=== PATIENT | male | born 1945 | race Caucasian/White ===

== ENCOUNTER 2019-03-01 16:14 | Outpatient (REF) | payer MEDICARE, BC, SELFPAY ==
[2019-03-01 21:11] LABS: HCT 43.8 % (40.0-50.0); HGB 14.7 g/dL (13.5-17.5); Mean Corp. HGB Concentration 33.6 g/dL (32.0-36.0); Mean Corpuscular Volume 101.4 fL (80-95); Mean Platelet Volume 9.5 fL (8.0-11.0); Platelet Count 238 x1000/uL (130-400); RBC 4.32 m/cumm (4.50-6.00); RBC Distribution Width 12.4 % (11.8-14.1); White Blood Cell Count 5.06 k/cumm (4.4-10.8)
[2019-03-01 21:21] LABS: Anion Gap 17.3 mmol/L (3-11); BUN 18 mg/dL (7-18); CO2 19.7 mmol/L (21.0-32.0); CREATININE 1.03 mg/dL (0.70-1.30); Calcium 8.6 mg/dL (8.5-10.1); Chloride 105 mmol/L (98-107); Glucose 84 mg/dL (70-100); Potassium 4.3 mmol/L (3.5-5.1); Sodium 142 mmol/L (136-145)
[2019-03-03 11:42] LABS: Lyme Ab w Rflx to Lyme Confirm Negative (Negative)
[2019-03-04 16:14] LABS: Anaplasma phagocytophilum Negative (Negative); B. miyamotoi PCR Negative (Negative); Babesia divergens/MO-1 Negative (Negative); Babesia duncani Negative (Negative); Babesia microti Negative (Negative); Ehrlichia chaffeensis Negative (Negative); Ehrlichia ewingii/canis Negative (Negative); Ehrlichia muris eauclairensis Negative (Negative)
== END 2019-03-01 16:34 ==
LOC: NCHCN 16:14
PROVIDERS: PCP Internal Medicine; Visit Provider Internal Medicine
DX: I10 Essential (primary) hypertension (principal); R21 Rash and other nonspecific skin eruption
CPT/HCPCS: 80048; 85027; 87798; 86618

== ENCOUNTER 2019-03-09 12:06 | Outpatient (CLI) | payer MEDICARE, BC, SELFPAY ==
[2019-03-09 12:44] LABS: Abs Immature Grans 0.02 k/cumm (0.0-0.09); Absolute Basophil Count 0.04 k/cumm (0.0-0.2); Absolute Eosinophil Count 0.05 k/cumm (0.0-0.7); Absolute Lymphocyte Count 2.08 k/cumm (1.2-3.4); Absolute Neutrophil Count 5.14 k/cumm (1.2-6.7); Basophils % 0.5; Eosinophils % 0.6; HCT 45.5 % (40.0-50.0); HGB 15.5 g/dL (13.5-17.5); Immature Grans % 0.2; Lymphocytes % 25.9; Mean Corp. HGB Concentration 34.1 g/dL (32.0-36.0); Mean Corpuscular Hemoglobin 33.8 pg (27.0-33.0); Mean Corpuscular Volume 99.3 fL (80-95); Mean Platelet Volume 9.7 fL (8.0-11.0); Monocytes % 8.7; Neutrophils % 64.1; Platelet Count 208 x1000/uL (130-400); RBC 4.58 m/cumm (4.50-6.00); White Blood Cell Count 8.03 k/cumm (4.4-10.8)
[2019-03-09 14:04] LABS: AST 57 U/L (15-37); Albumin 3.5 g/dL (3.4-5.0); Anion Gap 16.8 mmol/L (3-11); BUN 17 mg/dL (7-18); Bilirubin, Total 0.8 mg/dL (0.2-1.0); CO2 22.2 mmol/L (21.0-32.0); CREATININE 1.03 mg/dL (0.70-1.30); Calcium 8.7 mg/dL (8.5-10.1); Chloride 101 mmol/L (98-107); Glucose 81 mg/dL (74-106); Magnesium 0.9 mg/dL (1.8-2.4); Potassium 4.5 mmol/L (3.5-5.1); Sodium 140 mmol/L (136-145); TSH (W/Ref FT4) 2.32 uIU/mL (0.36-3.74); Total Protein 7.2 g/dL (6.4-8.2); Vitamin B12 323 pg/mL (193-986)
[2019-03-09 14:36] LABS: ALT 56 U/L (16-63); Alkaline Phosphatase 70 U/L (46-116)
[2019-03-09 15:50] LABS: Folate 4.6 ng/mL (8.6-20.0)
[2019-03-10 10:29] LABS: Lipase 106 U/L (73-393)
[2019-03-13 10:22] LABS: Thiamine (Vitamin B1), WB 131 nmol/L (70-180)
== END 2019-03-09 12:26 ==
PROVIDERS: PCP Internal Medicine; Visit Provider Specialist/Technologist Athletic Trainer
DX: R11.0 Nausea (principal); F10.10 Alcohol abuse, uncomplicated; R42 Dizziness and giddiness
CPT/HCPCS: 36415; 80053; 83690; 82607; 82746; 83735; 84425; 84443; 85025

== ENCOUNTER 2019-04-20 15:33 | Outpatient (REF) | payer MEDICARE, BC, SELFPAY ==
[2019-04-20 21:44] LABS: Magnesium 1.7 mg/dL (1.8-2.4)
[2019-04-22 16:30] LABS: Folate >24.0 ng/mL (See Note)
== END 2019-04-20 15:53 ==
LOC: NCHCN 15:33
PROVIDERS: PCP Internal Medicine; Visit Provider Internal Medicine
DX: E83.42 Hypomagnesemia (principal); D52.9 Folate deficiency anemia, unspecified
CPT/HCPCS: 82746; 83735

== ENCOUNTER 2019-06-14 01:39 | Outpatient (CLI) | payer MEDICARE, BC, SELFPAY ==
--- NOTE | 2019-06-14 | DI.RAD_ITS ---
EXAM: XR KNEE LT 3V AP,LAT,MURIEL INDICATION: LT KNEE PAIN, M25.562, [id number]. COMPARISON: No exams were available for comparison TECHNIQUE: 2D digital imaging was performed. FINDINGS: There is moderate narrowing of the medial femoral tibial joint. There is mild spurring from the femo ral condyles, tibial plateaus as well tibial spines and patella. No joint effusion is visible. IMPRESSION: Moderate degenerative changes medial femoral tibial joint. DATA REPOSITORY: RADIATION DOSE DELIVERED:
== END 2019-06-14 01:59 ==
PROVIDERS: PCP Internal Medicine; Visit Provider Internal Medicine
DX: M25.562 Pain in left knee (principal); M17.12 Unilateral primary osteoarthritis, left knee
CPT/HCPCS: 73562

== ENCOUNTER 2019-07-27 15:57 | Inpatient (IN) | payer MEDICARE, BC, SELFPAY ==
[2019-07-27] VITALS (132 sets, daily range): BP systolic 63–197; BP diastolic 43–132; PULSE 48–116; RESP 13–50; TEMP 36.4–36.5; O2SAT 86–100
--- NOTE | 2019-07-27 16:15 | DI.CT_ITS ---
EXAM: CT HEAD - STROKE PROTOCOL CLINICAL HISTORY: concern for bleed, seizure. TECHNIQUE: Imaging Protocol: Axial computed tomography images with coronal and sagittal reformatted images were created and reviewed COMPARISON: No previous for comparison. FINDINGS: Ventricles and Extra axial spaces: There is age-appropriate cerebral atrophy. Hemorrhage: None. Cerebral parenchyma: There are areas of decreased attenuation in the white matter most consistent wit h small vessel ischemic disease. No acute territorial infarct is seen. Midline shift: None. Brainstem/Cerebellum: Normal. Calvarium: Normal. Visualized Paranasal sinuses/Mastoids: There is opacification of a few ethmoid air cells. The remain ing visualized paranasal sinuses and mastoid air cells are well pneumatized. Note is made of a nasog astric tube. Soft Tissues: Unremarkable. IMPRESSION: No acute intracranial process. RADIATION DOSE DELIVERED: DATA REPOSITORY: All CT scans at this facility are submitted to the National Radiology Data Registry (NRDR) Dose Index Registry (DIR) with the [employer] (A[employer]). RADIATION OPTIMIZATION: All CT scans at this facility use at least one of these dose optimization te chniques: automated exposure control; mA and/or kV adjustment per patient size (includes targeted exa ms where dose is matched to clinical indication); or iterative reconstruction.
[2019-07-27] MEDS: LORazepam 2 MG/ML VIAL (16:18)
[2019-07-27] MEDS: Etomidate 20 MG/10 ML VIAL IVP (16:28)
[2019-07-27] MEDS: Rocuronium 50 MG/5 ML SYR 100 MG IVP (16:29)
--- NOTE | 2019-07-27 16:30 | DI.RAD_ITS ---
EXAM: XR PORTABLE CHEST AP POST LINE CLINICAL HISTORY: intubation TECHNIQUE: 2D digital imaging was performed. COMPARISON: No exams were available for comparison FINDINGS: MEDIASTINUM: Normal. HEART: Normal. PULMONARY VASCULATURE: Normal. LUNGS: There is a consolidation with air bronchograms in the left lower lobe. PLEURAL SPACE: No pleural effusion or pneumothorax. BONE:Normal. OTHER FINDINGS:The tip of the endotracheal tube is seen in the right mainstem bronchus and should be retracted at least 3-4 cm. There is a nasogastric tube present. The tip of the tube extends below t he diaphragms and inferior border of the study. This likely is within the stomach. IMPRESSION: 1. Right mainstem bronchus intubation. The endotracheal tube should be retracted at least 3-4 cm. 2. Nasogastric tube which appears to lie in a good position within the stomach. 3. Left lower lobe consolidation with air bronchograms which may reflect atelectasis or pneumonia. DATA REPOSITORY: RADIATION DOSE DELIVERED:
[2019-07-27] MEDS: PROPOFOL 1,000 MG/100 ML BTL 30.3 MG IVPB (16:33)
--- NOTE | 2019-07-27 16:45 | DI.CT_ITS ---
EXAM: CTA BRAIN and NECK CLINICAL HISTORY: right hand tingling, seizure. TECHNIQUE: Imaging Protocol: Axial CT angiography was performed with multi-slice acquisition and mu lti-planar and/or 3D reconstructions. CONTRAST MATERIAL: Intravenous: Omnipaque 350 Contrast volume:100 mL COMPARISON: No exams were available for comparison FINDINGS: CTA Brain W: Internal Carotid Arteries: Petrous: Normal. No aneurysm, occlusion or significant stenosis. Cavernous: Calcific atherosclerosis. No aneurysm, occlusion or significant stenosis. Cerebral: Normal. No aneurysm, occlusion or significant stenosis. Middle Cerebral Arteries: Right: No aneurysm, occlusion or significant stenosis. Left: No aneurysm, occlusion or significant stenosis. Anterior Cerebral Arteries: Right: No aneurysm, occlusion or significant stenosis. Left: No aneurysm, occlusion or significant stenosis. Posterial Cerebral Arteries: Right: No aneurysm, occlusion or significant stenosis. The right posterior cerebral artery arises fr om the posterior communicating artery. This is a normal variant. Left: No aneurysm, occlusion or significant stenosis. Vertebral Arteries: Right: No aneurysm, occlusion or significant stenosis. The right vertebral artery appears to termina te at the level of the right posterior inferior cerebellar artery. The right vertebral artery is dec reased in size compared to the left vertebral artery.. Left: No aneurysm, occlusion or significant stenosis. Basilar Artery: No aneurysm, occlusion or significant stenosis. CTA neck W: Common carotid arteries: No significant stenosis, dissection or occlusion. External carotid arteries: No evidence of occlusion or significant stenosis. Internal carotid arteries: There is atherosclerotic plaque seen in the proximal extracranial internal carotid arteries bilaterally. No evidence of occlusion, dissection or significant stenosis. Vertebral arteries: Right vertebral artery is decreased in size relative to the left throughout. No evidence of occlusion or significant stenosis. There is a dominant left vertebral artery. No eviden ce of occlusion or significant stenosis. The proximal left vertebral artery is not well visualized d ue to beam hardening artifact. Lung apices: The endotracheal tube is seen in the right mainstem bronchus and should be repositioned. Visualized left lung shows complete consolidation which is likely due to the right mainstem bronchu s intubation. Nonspecific ground-glass opacities are seen in the right lung. Soft tissues: Unremarkable. IMPRESSION: 1. No evidence of occlusion, dissection or significant stenosis the arteries of the head or neck. 2. Complete consolidation of the visualized portions of the left lung. This is likely secondary to a malpositioned right mainstem bronchus intubation. The endotracheal tube should be repositioned. Fi ndings were discussed with the emergency department physician at the time of the examination by [facility]. 3. Ground-glass opacities in the right lung. These are nonspecific. DATA REPOSITORY: All CT scans at this facility are submitted to the National Radiology Data Registry (NRDR) Dose Index Registry (DIR) with the [employer] (ACR). RADIATION OPTIMIZATION: All CT scans at this facility use at least one of these dose optimization te chniques: automated exposure control; mA and/or kV adjustment per patient size (includes targeted exa ms where dose is matched to clinical indication); or iterative reconstruction.
--- NOTE | 2019-07-27 16:49 | ED.GENADUL_ITS ---
Discharge Plan Disposition Patient Disposition: [facility] INPATIENT Condition: Serious Discharge Details Chief Complaint: AMS/LOC Clinical Impression: Seizure Primary Care Provider: Jack Reese ED Provider: Denis Meehan Home Meds and New Rx's Prescriptions: No Action omeprazole 40 MG capsule,delayed release(DR/EC) 40 mg PO DAILY@0730 Qty: 30 RF: 5 ranitidine HCl 300 MG tablet 300 mg PO HS Qty: 30 RF: 2 losartan 25 mg tablet 25 mg PO DAILY RF: 0 hydrochlorothiazide 12.5 mg tablet 12.5 mg PO DAILY RF: 0 Medical Decision Making 16:50 --73-year-old male with history of hypertension, hyperlipidemia, apparent history of dysphasia, history of alcohol abuse, here today with tingling in his right hand, had sudden loss of consciousness with seizure activity. I was called emergently to bedside by nursing and on my assessment I found patient to be unresponsive and not protecting his airway. IV access was obtained and Ativan 2 mg IV was administered. Patient remained unresponsive with GCS of 3. He had leftward gaze. Concern for acute intracranial hemorrhage. Patient intubated with RSI etomidate and rocuronium on first attempt with video laryngoscopy. Patient had no desaturations. Patient was started on propofol infusion. Plan for stat CT head to assess for intracranial hemorrhage. --CT of the head was interpreted by radiology: IMPRESSION: 1. No acute intracranial pathology. ASPECTS score 10. 2. Other chronic findings, as above. CTA of the head interpreted by radiology: IMPRESSION: No intracranial arterial occlusion or significant stenosis. CTA of the neck interpreted by radiology: IMPRESSION: 1. No occlusion or significant stenosis in the arteries of the neck. 2. Essentially complete consolidation of the left lung, likely secondary to malpositioned right mainstem bronchus intubation. Findings regarding the position of this endotracheal tube were discussed with Dr. Meehan at 07/27/2019 5:43 PM EDT. 3. Few scattered nonspecific patchy ground-glass opacities throughout the partially visualized right lung. Recommend correlation with dedicated complete chest CT, following repositioning of endotracheal tube. Chest x-ray interpreted by radiology: IMPRESSION: 1. Endotracheal tube tip extends into the right mainstem bronchus. Recommend retraction by 4 cm. 2. Enteric tube in place, tip terminating below the inferior border of the study, likely within within the stomach. 3. Left lower lobe consolidation with air bronchograms. Findings may reflect atelectasis or pneumonia. Endotracheal tube was pulled back by respiratory therapy. Labs reviewed and nondiagnostic. Patient does have significantly elevated ammonia level. ECG was reviewed and interpreted by me: Sinus rhythm 92 bpm, normal axis, left atrial enlargement, flattening of ST with subtle T wave inversions noted laterally V4 to V6. I spoke with the patient's daughter who notes no known seizure disorder. There is history obtained from girlfriend the patient is a heavy drinker. He has been cutting back over the past few weeks and then yesterday had a binge. Suspect seizure related to alcohol withdrawal. Patient reassessed multiple times. Patient is doing well on propofol and fentanyl drip. --On reassessment, patient was requiring increased sedation. Decision made to switch from propofol to Versed given concern for alcohol dependence. Patient was given Keppra 1 g IV. Repeat portable chest x-ray notes endotracheal tube is 1.6 cm above temi. Endotracheal tube was withdrawn 1 cm by RT. I called and spoke with Dr. Milian who will admit the patient. I did speak with the patient's about his current status and treatment plan. Given unknown history on initial presentation precautions airborne PPE precautions were taken during intubation. Having gathered additional history, I do not think the patient is a PUI. No fever recently or history of cough. No known sick contacts or recent travel. Patient afebrile now. HPI General Mode of arrival: ambulatory . Date/Time Provider Initiated Documentation: 07/27/19 16:14 . Limitations to Documentation: altered mental status . Information obtained by: patient . HPI Narrative: 73-year-old male with history listed of dyslipidemia, hypertension, apparently a heavy drinker, GERD, hypercholesterolemia, migraine headache, also listed as dysphasia, presents today complaining to nursing of tingling in his right hand and speech disturbance. While nursing was rooming the patient he suddenly had a loss of consciousness with generalized tonic-clonic seizure activity. Patient does have a known history of seizure disorder. History and review of systems limited secondary to altered mental status. Related Data Home Medications Medication Instructions Recorded Confirmed omeprazole 40 mg PO DAILY@0730 #30 capcr 05/19/17 07/27/19 ranitidine HCl 300 mg PO HS #30 tab 05/19/17 hydrochlorothiazide 12.5 mg PO DAILY 07/27/19 07/27/19 losartan 25 mg PO DAILY 07/27/19 Previous Rx's Medication Instructions Recorded omeprazole 40 mg PO DAILY@0730 #30 capcr 05/19/17 ranitidine HCl 300 mg PO HS #30 tab 05/19/17 Allergies Allergy/AdvReac Type Severity Reaction Status Date / Time No Known Allergies Allergy Unverified 07/27/19 19:06 General Stated Complaint: AMS/LOC TIMMY: 2 Review of Systems Narrative: unable to obtain [facility] Medical History Dyslipidemia Dysphagia Heart burn Hx of adenomatous polyp of colon Hypertension Obesity (BMI 30.0-34.9) Surgical History Colonoscopy - [facility] 2010- EGD - [facility] (05/19/17) Social History Smoking/Tobacco Use Status: Current-Occasional Drug use: Never Exam Const Nutritional Appearance: well nourished Orientation: other (Unresponsive) [facility] Head: normocephalic and atraumatic Mouth: moist mucous membranes Eyes Conjunctivae: normal conjunctivae Neck Neck: trachea midline and supple Resp Auscultation: clear to auscultation bilaterally, no rales, no rhonchi and no wheezes Cardio Jugular venous pressure: no JVD Rate: regular rate Rhythm: regular rhythm GI Palpation: soft, not firm, no guarding, no masses, not rigid and nontender Skin General skin exam: no rashes or lesions noted Neuro Other: GCS 3 Extrem General: no edema Psych Appearance: well kempt Procedures Intubation Time out performed: Yes sedative: Etomidate Mg Given: 20 paralytic: Rocuronium Mg Given: 100 Laryngoscope: fiberoptic video scope ET Tube Size: 7.5 Tube Secured Depth (cm): 28 Tube Secured Location: lips Tube Placement Confirmation: visualized tube passing through cords Patient Tolerated Procedure: well and no complications Intubation Complications: none Critical Care Time Critical Care Time Critical Care Time: Yes Total Critical Care Time: 50 Attestation: I spent greater than 50 minutes addressing this patient's immediate life threats. This time is exclusive of separate procedures.
[2019-07-27 16:51] LABS: ALT 26 U/L (16-63); AST 23 U/L (15-37); Albumin 4.2 g/dL (3.4-5.0); Alkaline Phosphatase 97 U/L (46-116); Anion Gap 21.2 mmol/L (3-11); BUN 23 mg/dL (7-18); CO2 19.8 mmol/L (21.0-32.0); CREATININE 1.23 mg/dL (0.70-1.30); Calcium 9.3 mg/dL (8.5-10.1); Chloride 104 mmol/L (98-107); Estimated GFR 58.01 (mL/min/1.73m2); Glucose 123 mg/dL (74-106); HCT 51.7 % (40.0-50.0); HGB 16.7 g/dL (13.5-17.5); Mean Corp. HGB Concentration 32.3 g/dL (32.0-36.0); Mean Corpuscular Hemoglobin 30.9 pg (27.0-33.0); Mean Corpuscular Volume 95.6 fL (80-95); Mean Platelet Volume 10.1 fL (8.0-11.0); Platelet Count 281 x1000/uL (130-400); Potassium 3.4 mmol/L (3.5-5.1); RBC 5.41 m/cumm (4.50-6.00); RBC Distribution Width 14.7 % (11.8-14.1); Sodium 145 mmol/L (136-145); Total Protein 8.4 g/dL (6.4-8.2); White Blood Cell Count 14.49 k/cumm (4.4-10.8)
[2019-07-27 16:52] LABS: INR 1.1 (0.9-1.1); PTT Activated 23.1 sec (21.0-31.4)
[2019-07-27 16:54] LABS: Ammonia 119 umol/L (11-32)
[2019-07-27 17:18] LABS: ETHANOL BLOOD < 3.0 mg/dL (<3); Magnesium 1.6 mg/dL (1.8-2.4); Troponin I 0.05 ng/Ml (<0.06)
[2019-07-27 17:28] LABS: Absolute Neutrophil Count 6.67 k/cumm (1.2-6.7)
--- NOTE | 2019-07-27 17:28 | DI.VRAD_ITS ---
PROCEDURE INFORMATION: Exam: CT Head Without Contrast Exam date and time: 07/27/2019 4:55 PM Age: 73 years old Clinical indication: Other: Concern for bleed, seizure TECHNIQUE: Imaging protocol: Computed tomography of the head without contrast. Radiation optimization: All CT scans at this facility use at least one of these dose optimization techniques: automated exposure control; mA and/or kV adjustment per patient size (includes targeted exams where dose is matched to clinical indication); or iterative reconstruction. Other technique: STROKE PROTOCOL was implemented. COMPARISON: No relevant prior studies available. FINDINGS: Brain: Mild nonspecific hypodensities of the periventricular and deep subcortical white matter, most likely secondary to chronic small vessel ischemic change. No intracranial hemorrhage or extra-axial fluid collection. No evidence of mass effect or midline shift. Ruiz-white matter differentiation is normal. Ventricles: Mild prominence of the ventricles and sulci, most likely attributed to parenchymal volume loss. Bones/joints: No acute osseus lesion or fracture. Sinuses: Unremarkable as visualized. Mastoid air cells: Unremarkable. Soft tissues: Unremarkable. IMPRESSION: 1. No acute intracranial pathology. ASPECTS score 10. 2. Other chronic findings, as above. Dictated and Authenticated by: Roni Rivera MD. Ordering:RACHID Zapata MD
[2019-07-27 17:29] LABS: Absolute Basophil Count 0.14 k/cumm (0.0-0.2); Absolute Eosinophil Count 0.14 k/cumm (0.0-0.7); Absolute Lymphocyte Count 6.81 k/cumm (1.2-3.4); Absolute Monocyte Count 1.01 k/cumm (0.11-0.7); Atypical Lymphocytes % 14; Diff Comment Manual Differential; Macrocytosis 1+; Nucleated RBC 1 /100WBC
[2019-07-27 17:34] LABS: *AMPHETAMINES SCREEN URINE Negative (Negative); *BARBITURATES SCREEN URINE Negative (Negative); *BENZODIAZEPINES SCREEN URINE Negative (Negative); Cannabinoids THC Negative (Negative); Cocaine Screen,Urine Negative (Negative); METHADONE URINE SCREEN Negative (Negative); OPIATES URINE SCREEN Negative (Negative)
[2019-07-27 17:41] LABS: Bilirubin Negative (Negative); Blood Trace-intact (Negative); Clarity Clear (Clear); Glucose Negative (Negative); Ketones 15 mg/dL (Negative); Leukocyte Esterase Negative (Negative); Nitrite Negative (Negative); Specific Gravity >= 1.030 (1.005-1.025); Urobilinogen 0.2 EU/dL (Up TO 0.2); pH 5.5 (5-8)
--- NOTE | 2019-07-27 17:43 | DI.VRAD_ITS ---
Addendum created by Roni Rivera MD on 07/27/2019 5:43:44 PM EDT Findings were discussed with Dr. Meehan at 07/27/2019 5:43 PM EDT. Initial report created on 07/27/2019 5:42:55 PM EDT PROCEDURE INFORMATION: Exam: XR Chest, 1 View Exam date and time: 07/27/2019 5:29 PM Age: 73 years old Clinical indication: Other: Intubation TECHNIQUE: Imaging protocol: XR of the chest Views: 1 view. COMPARISON: No relevant prior studies available. FINDINGS: Tubes, catheters and devices: Endotracheal tube tip extends into the right mainstem bronchus. Enteric tube in place, tip terminating below the inferior border of the study, likely within within the stomach. Lungs: Left lower lobe consolidation with air bronchograms. Pleural space: No pleural effusion or pneumothorax. Heart/Mediastinum: Cardiac and mediastinal silhouettes are unremarkable. Bones/joints: No acute osseus lesion or fracture. IMPRESSION: 1. Endotracheal tube tip extends into the right mainstem bronchus. Recommend retraction by 4 cm. 2. Enteric tube in place, tip terminating below the inferior border of the study, likely within within the stomach. 3. Left lower lobe consolidation with air bronchograms. Findings may reflect atelectasis or pneumonia. Dictated and Authenticated by: Roni Rivera MD. Ordering:RACHID Zapata MD
[2019-07-27 17:45] LABS: Tricyclic Antidepressants Negative (Negative)
[2019-07-27] MEDS: Omnipaque 350 MG/ML 100 ML BTL IV (17:49)
--- NOTE | 2019-07-27 17:49 | DI.VRAD_ITS ---
PROCEDURE INFORMATION: Exam: CT Angiography Head With Contrast Exam date and time: 07/27/2019 5:02 PM Age: 73 years old Clinical indication: Other: Right hand tingling, seizure; Additional info: Concern for bleed, seizure, right hand tingling, seizure TECHNIQUE: Imaging protocol: Computed tomography angiography of the head with intravenous contrast. 3D rendering: MIP and/or 3D reconstructed images were created by the technologist. Contrast material: OMNIPAQUE 350; Contrast volume: 100 ml; Contrast route: IV; COMPARISON: CT HEAD - STROKE PROTOCOL 07/27/2019 4:48 PM FINDINGS: Right internal carotid artery: Calcific atherosclerotic changes of the intracranial right internal carotid artery without evidence of hemodynamically significant stenosis. Right anterior cerebral artery: No occlusion or significant stenosis. No aneurysm. Right middle cerebral artery: No occlusion or significant stenosis. No aneurysm. Right posterior cerebral artery: Patent and type right posterior cerebral artery. Right vertebral artery: Patent intracranial right vertebral artery terminates into a patent right posterior inferior cerebellar artery. Left internal carotid artery: Calcific atherosclerotic changes of the intracranial left internal carotid artery without evidence of hemodynamically significant stenosis. Left anterior cerebral artery: No occlusion or significant stenosis. No aneurysm. Left middle cerebral artery: No occlusion or significant stenosis. No aneurysm. Left posterior cerebral artery: No occlusion or significant stenosis. No aneurysm. Left vertebral artery: No occlusion or significant stenosis. No aneurysm. Basilar artery: No occlusion or significant stenosis. No aneurysm. IMPRESSION: No intracranial arterial occlusion or significant stenosis. PROCEDURE INFORMATION: Exam: CT Angiography Neck With Contrast Exam date and time: 07/27/2019 5:02 PM Age: 73 years old Clinical indication: Other: Right hand tingling, seizure; Additional info: Concern for bleed, seizure, right hand tingling, seizure TECHNIQUE: Imaging protocol: Computed tomography angiography of the neck with intravenous contrast. 3D rendering: MIP and/or 3D reconstructed images were created by the technologist. Contrast material: OMNIPAQUE 350; Contrast volume: 100 ml; Contrast route: IV; COMPARISON: CT HEAD - STROKE PROTOCOL 07/27/2019 4:48 PM FINDINGS: VASCULATURE: Right common carotid artery: No significant stenosis. No dissection or occlusion. Right internal carotid artery: Atherosclerotic plaques involving the proximal extracranial right internal carotid artery without evidence of hemodynamically significant stenosis (0% stenosis by NASCET criteria). Right external carotid artery: No occlusion or significant stenosis. Right vertebral artery: Small caliber though otherwise patent right vertebral artery. Left common carotid artery: No significant stenosis. No dissection or occlusion. Left internal carotid artery: Atherosclerotic plaques involving the proximal extracranial left internal carotid artery without evidence of hemodynamically significant stenosis (0% stenosis by NASCET criteria). Left external carotid artery: No occlusion or significant stenosis. Left vertebral artery: Patent and dominant left vertebral artery. Limited evaluation of the inferior most aspect of the extracranial left vertebral artery secondary to beam hardening artifact from contrast within adjacent venous structures. NECK: Bones/joints: No acute fracture. Soft tissues: Unremarkable. Lungs: Essentially complete consolidation of the left lung, likely secondary to right mainstem bronchus endotracheal tube extension. Few scattered nonspecific patchy ground-glass opacities throughout the partially visualized right lung. IMPRESSION: 1. No occlusion or significant stenosis in the arteries of the neck. 2. Essentially complete consolidation of the left lung, likely secondary to malpositioned right mainstem bronchus intubation. Findings regarding the position of this endotracheal tube were discussed with Dr. Meehan at 07/27/2019 5:43 PM EDT. 3. Few scattered nonspecific patchy ground-glass opacities throughout the partially visualized right lung. Recommend correlation with dedicated complete chest CT, following repositioning of endotracheal tube. REFERENCES: NASCET CRITERIA. The degree of internal carotid artery stenosis is based on NASCET criteria. Normal is no stenosis. Mild is less than 50% stenosis. Moderate is 50-69% stenosis. Severe is 70% to 99% stenosis. Total occlusion is no detectable patent lumen. Dictated and Authenticated by: Roni Rivera MD. Ordering:ARNALDO Barrios MD
[2019-07-27 17:50] LABS: Bacteria Negative HPF (Negative); C & S Indicated? No; Casts Negative LPF (Negative); Crystals Many Amorphous HPF (Negative); Epithelial Cells Moderate HPF (Negative); Mucus Negative (Negative); RBC 0-2 HPF (0-2)
[2019-07-27] MEDS: Normal Saline - Diluent 50 ML VIAL IV (17:50)
[2019-07-27] MEDS: Normal Saline Flush 10 ML SYR IVP ×2 (18:12→21:14)
[2019-07-27] MEDS: fentaNYL 1,000 MCG in Normal Saline 80 ML 7.1 MCG IV (18:15)
[2019-07-27] MEDS: fentaNYL 1,000 MCG/20 ML VIAL 1000 MCG (18:15)
[2019-07-27] MEDS: Midazolam 2 MG/2 ML VIAL 6 MG IVP (18:30)
--- NOTE | 2019-07-27 18:55 | DI.RAD_ITS ---
EXAM: XR PORTABLE CHEST AP POST LINE CLINICAL HISTORY: post tube withdrawal TECHNIQUE: 2D digital imaging was performed. COMPARISON: XR PORTABLE CHEST AP POST LINE from 07/27/2019 FINDINGS: MEDIASTINUM: Normal. HEART: Normal. PULMONARY VASCULATURE: Normal. LUNGS: Improved aeration of the left lung with repositioning of the endotracheal tube. However, ther e is a persistent area of consolidation inferiorly. PLEURAL SPACE: No pleural effusion or pneumothorax. BONE:Normal. OTHER FINDINGS:The endotracheal tube has been retracted. The tip now lies 1.6 cm above the temi. I t should be retracted approximately 2 cm. Nasogastric tube terminates below the hemidiaphragms likel y within the stomach. IMPRESSION: 1. Interval retraction of the endotracheal tube. The tip now lies 1.6 cm above the temi. It shoul d be retracted approximately 2 cm. 2. Improved aeration of the left lung with a persistent area of consolidation inferiorly. DATA REPOSITORY: RADIATION DOSE DELIVERED:
[2019-07-27] MEDS: MIDAZOLAM 50 MG in Normal Saline 90 ML 10.1 MG IV (18:57)
--- NOTE | 2019-07-27 19:09 | DI.VRAD_ITS ---
PROCEDURE INFORMATION: Exam: XR Chest, 1 View Exam date and time: 07/27/2019 6:56 PM Age: 73 years old Clinical indication: Other: Post tube withdrawal TECHNIQUE: Imaging protocol: XR of the chest Views: 1 view. COMPARISON: XR PORTABLE CHEST AP 07/27/2019 5:25 PM FINDINGS: Tubes, catheters and devices: Endotracheal tube tip terminates 1.6 cm above the temi. Enteric tube in unchanged position. Lungs: Markedly improved aeration of the left lung, particularly in the left lower lobe, though with some persistent consolidation. Pleural space: No pleural effusion or pneumothorax. Heart/Mediastinum: Cardiac and mediastinal silhouettes are unremarkable. Bones/joints: No acute osseus lesion or fracture. IMPRESSION: 1. Endotracheal tube tip terminates 1.6 cm above the temi. Recommend retraction by approximately 2 cm. 2. Markedly improved aeration of the left lung, particularly in the left lower lobe, though with some persistent consolidation. Dictated and Authenticated by: Roni Rivera MD. Ordering:ARNALDO Barrios MD
[2019-07-27] MEDS: levETIRAcetam 1,000 MG in Normal Saline 100 ML 400 MG IVPB (19:33)
[2019-07-27 19:50] LABS: Anion Gap 7.1 mmol/L (3-11); BUN 20 mg/dL (7-18); CO2 28.9 mmol/L (21.0-32.0); CREATININE 0.93 mg/dL (0.70-1.30); Chloride 104 mmol/L (98-107); Glucose 125 mg/dL (74-106); Potassium 3.2 mmol/L (3.5-5.1); Sodium 140 mmol/L (136-145)
[2019-07-27 20:03] LABS: Troponin I 0.06 ng/Ml (<0.06)
--- NOTE | 2019-07-27 20:56 | NUR.NOTE ---
Nursing Note: 1615: Dr. Meehan with patient, 1617: 18 G IV to left AC by ER nurse 1620: 18 G IV to left hand by Dodie, RN 1628 : See Mar for Meds. 1632: Pt intubated by Dr Meehan 1637: 16nF Jimenez catheter inserted. Return of dark yellow urine 1645: NG tube inserted into right nare 1650: To CT with RN and RT x2 1740: Return from CT. Pt taken to room 6
[2019-07-27 21:05] LABS: BE 3.3 mmol/L (-3-3); HCO3 29 mmol/L (22-28); pCO2 50 mmHg (34-47); pH 7.37 (7.35-7.45); pO2 126 mmHg (83-108); sO2 98 % (94-98); tCO2 26 mmol/L (22-29)
[2019-07-27 21:08] LABS: FIO2 60 %; Site Right Radial
[2019-07-27] MEDS: MAGNESIUM SULFATE 2 GM/50 ML BAG IVPB (21:13)
[2019-07-27] MEDS: POTASSIUM CHLORIDE/D5-0.45NACL 1,000 ML 150 MEQ IV (21:14)
--- NOTE | 2019-07-27 21:25 | W.PM.HP.N ---
Date of service: 07/27/19 Time of Service: 21:25 Assessment and Plan Assessment and plan (1) Alcohol withdrawal seizure with complication: Status: Acute Assessment and plan: No prior hx of seizures despite hx of heavy alcohol use. Will check EEG in the a.m., covering w/ Keppra for tonight along w/ midazolam drip. Will have nursing titrate down his sedation and hopefully blood pressures will improve enough to wean down or off his norepinephrine drip. (2) Acute respiratory failure: Status: Acute Assessment and plan: Initially he was intubated by ER d/t his seizure and failure to protect his airway. There was no visible aspiration while in the ER, however given that his intubation was in the right main stem bronchus and his CXR demonstrated LLL consolidation and w/ his leukocytosis, I am going to cover him tonight w/ Zosyn pending repeat CXR in the a.m. and repeat his CBC and check his procalcitonin level. Qualifiers: Respiratory failure complication: unspecified whether with hypoxia or hypercapnia Qualified Code(s): J96.00 - Acute respiratory failure, unspecified whether with hypoxia or hypercapnia (3) Hypotension: Status: Acute Assessment and plan: probably combination of hypovolemia and medication induced and positive pressure ventilation. Patient was given iv fluid bolus but required norepinephrine drip to stabilize his blood pressure. Qualifiers: Hypotension type: unspecified hypotension type Qualified Code(s): I95.9 - Hypotension, unspecified (4) Aspiration pneumonia: Status: Suspected Assessment and plan: will obtain blood cultures, sputum cultures and begin empiric treatment w/ Zosyn. repeat his CXR in the a.m. Qualifiers: Aspiration pneumonia type: unspecified Laterality: left Lung location: lower lobe of lung Qualified Code(s): J69.0 - Pneumonitis due to inhalation of food and vomit History of Present Illness History of Present Illness Chief Complaint: seizure Narrative: 73-year-old male with a history of alcoholism, hypertension, hyperlipidemia presented emergency department with complaints of tingling in his right hand and speech disturbance and while patient was being placed into a room he had sudden loss of consciousness with generalized tonic-clonic seizure activity. Because of his lack of responsiveness with a [place] Coma Scale of 3 and inability to protect his airway patient was emergently intubated with rapid sequence induction with etomidate and rocuronium and use of a video laryngoscope. Patient was subsequently found to have right mainstem bronchus intubation and the ET tube was pulled back appropriately with repeat x-ray confirmation. ER attending physician had obtained information from the patient's girlfriend that he is a heavy drinker of alcohol who recently had cut back his drinking but went on a binge drinking yesterday. According to other family members he has no history of seizure activity. Acute seizure was treated with 2 mg of Ativan IV and subsequently was started on Keppra. He was started on a propofol drip while in the emergency department and subsequently switched to of fentanyl drip and Versed drip because of problems with hypotension on the propofol drip. After admission to the intensive care unit he had further episodes of hypotension that necessitated weaning down his Versed drip and despite IV fluid boluses he required vasopressors including norepinephrine drip. He is now hemodynamically stable. Stat CT scan of the head was performed without contrast to rule out an intracranial hemorrhage. No intracranial pathology was seen. CTA of the head neck was performed and no occlusion or stenosis was found intracranial and no stenosis or occlusion of the cervical vessels was seen. However near complete consolidation left lung was seen on CT scan secondary to right mainstem bronchus intubation. Few scattered nonspecific patchy groundglass opacities are seen in the right lung. Post intubation chest x-ray showed endotracheal tube extending in the right mainstem bronchus. Enteric tube was seen to terminate in the inferior border within the stomach. Left lower lobe consolidation with air bronchograms were seen. EKG was performed demonstrating sinus rhythm at a rate 92 bpm with evidence of left atrial enlargement and flattening of ST waves laterally with subtle T wave inversions in V4 through V6. Labs were remarkable for WBC 14,490, no anemia, potassium of 3.2, magnesium of 1.6; troponin levels of 0.05 and 0.06. ABG post intubation and initiation of mechanical ventilation: 7.37/pCO2 50/pO2 126/HCO3 29 on 60% FiO2/TV 430/AC 15/PEEP 5 cm. Patient is now admitted to ICU for treatment of alcohol withdrawal seizures, acute alcohol withdrawal and respiratory failure d/t seizure and decreased LOC. There is question of pneumonia in LLL however because of a R. mainstem bronchus intubation, much of the LLL consolidation was felt to be d/t atelectasis. Repeat CXR after repositioning of ET showed improvement in aeration of LLL. His leukocytosis was felt to be secondary to his seizure. Review of Systems Unobtainable due to mental status [facility] Medical History Dyslipidemia Dysphagia Heart burn Hx of adenomatous polyp of colon Hypertension Obesity (BMI 30.0-34.9) Surgical History Colonoscopy - MAC 2011-nl EGD - MAC (05/19/17) Social History (Updated 07/28/19 @ 01:21 by Álvaro Roger) Smoking/Tobacco Use Status: Current-Occasional Alcohol Intake: current Drug use: Never Meds Home Medications and Allergies Home Medications Medication Instructions Recorded Confirmed Type omeprazole 40 mg PO DAILY@0730 #30 capcr 05/19/17 07/27/19 Rx ranitidine HCl 300 mg PO HS #30 tab 05/19/17 Rx hydrochlorothiazide 12.5 mg PO DAILY 07/27/19 07/27/19 History losartan 25 mg PO DAILY 07/27/19 History Allergies Allergy/AdvReac Type Severity Reaction Status Date / Time No Known Allergies Allergy Unverified 07/27/19 19:06 Exam Narrative Exam Narrative: Elderly male heavily sedated and intubated. [place] coma scale 3 Pupils pinpoint and minimally reactive but equal No facial asymmetry Neck supple, no adenopathy, normal carotid pulses; no JVD Lungs: diffusely diminished but equal aeration bilaterally w/ no rhonchi or wheezing Heart: RRR w/out murmur, rub or gallops Abdomen: obese, soft, active bowel sounds; no palpable masses or bruits or organomegaly Extremities: w/out deformity, no edema; no cyanosis; normal pedal pulses Neuro: heavily sedated, not responsive to noxious stimulation; no spontaneous eye opening and no withdrawal of extremities to noxious stimulation; tone present in extremities and no decerebrate or decorticate posturing. Results Labs Result diagrams: 07/28/19 05:45 07/28/19 05:45 Labs: Laboratory Results - last 24 hr 07/27/19 07/27/19 07/27/19 16:28 16:28 16:28 WBC RBC Hgb Hct MCV MCH MCHC RDW Plt Count MPV Immature Gran % Neutrophils % Band Neutrophils % Lymphocytes % Atypical Lymphs % Monocytes % Eosinophils % Basophils % Absolute Neutrophils Absolute Lymphocytes Absolute Monocytes Absolute Eosinophils Absolute Basophils Nucleated RBCs Differential Comment RBC Morphology Macrocytosis PT 11.0 INR 1.1 APTT 23.1 ABG Sample Site ABG pH ABG pCO2 ABG pO2 ABG HCO3 ABG Total CO2 ABG O2 Saturation ABG Base Excess FiO2 Sodium 145 Potassium 3.4 L Chloride 104 Carbon Dioxide 19.8 L Anion Gap 21.2 H BUN 23 H Creatinine 1.23 Estimated GFR/1.73 m2 58.01 Glucose 123 H Calcium 9.3 Phosphorus Magnesium 1.6 L Total Bilirubin 1.0 AST 23 ALT 26 Alkaline Phosphatase 97 Ammonia Troponin I 0.05 Total Protein 8.4 H Albumin 4.2 Urine Color Urine Clarity Urine pH Ur Specific [place] Urine Protein Urine Ketones Urine Blood Urine Nitrite Urine Bilirubin Urine Urobilinogen Ur Leukocyte Esterase Urine RBC Urine WBC Ur Epithelial Cells Urine Crystals Urine Bacteria Urine Casts Urine Mucus Ur Culture Indicated? Urine Glucose Urine Opiates Screen Urine Methadone Screen Ur Barbiturates Screen Ur Tricyclics Screen Ur Amphetamines Screen U Benzodiazepines Scrn Urine Cocaine Screen Ur THC Screen Ethyl Alcohol < 3.0 07/27/19 07/27/19 07/27/19 16:28 16:28 17:10 WBC 14.49 H RBC 5.41 Hgb 16.7 Hct 51.7 H MCV 95.6 H MCH 30.9 MCHC 32.3 RDW 14.7 H Plt Count 281 MPV 10.1 Immature Gran % 0.0 Neutrophils % 44.0 Band Neutrophils % 2.0 Lymphocytes % 33.0 Atypical Lymphs % 14 Monocytes % 7.0 Eosinophils % 1.0 Basophils % 1.0 Absolute Neutrophils 6.67 Absolute Lymphocytes 6.81 H Absolute Monocytes 1.01 H Absolute Eosinophils 0.14 Absolute Basophils 0.14 Nucleated RBCs 1 Differential Comment Manual differential RBC Morphology See below Macrocytosis 1+ PT INR APTT ABG Sample Site ABG pH ABG pCO2 ABG pO2 ABG HCO3 ABG Total CO2 ABG O2 Saturation ABG Base Excess FiO2 Sodium Potassium Chloride Carbon Dioxide Anion Gap BUN Creatinine Estimated GFR/1.73 m2 Glucose Calcium Phosphorus Magnesium Total Bilirubin AST ALT Alkaline Phosphatase Ammonia 119 H Troponin I Total Protein Albumin Urine Color Urine Clarity Urine pH Ur Specific [place] Urine Protein Urine Ketones Urine Blood Urine Nitrite Urine Bilirubin Urine Urobilinogen Ur Leukocyte Esterase Urine RBC Urine WBC Ur Epithelial Cells Urine Crystals Urine Bacteria Urine Casts Urine Mucus Ur Culture Indicated? Urine Glucose Urine Opiates Screen Negative Urine Methadone Screen Negative Ur Barbiturates Screen Negative Ur Tricyclics Screen Negative Ur Amphetamines Screen Negative U Benzodiazepines Scrn Negative Urine Cocaine Screen Negative Ur THC Screen Negative Ethyl Alcohol 07/27/19 07/27/19 07/27/19 17:10 19:19 19:22 WBC RBC Hgb Hct MCV MCH MCHC RDW Plt Count MPV Immature Gran % Neutrophils % Band Neutrophils % Lymphocytes % Atypical Lymphs % Monocytes % Eosinophils % Basophils % Absolute Neutrophils Absolute Lymphocytes Absolute Monocytes Absolute Eosinophils Absolute Basophils Nucleated RBCs Differential Comment RBC Morphology Macrocytosis PT INR APTT ABG Sample Site ABG pH ABG pCO2 ABG pO2 ABG HCO3 ABG Total CO2 ABG O2 Saturation ABG Base Excess FiO2 Sodium Potassium Chloride Carbon Dioxide Anion Gap BUN Creatinine Estimated GFR/1.73 m2 Glucose Calcium Phosphorus Magnesium Total Bilirubin AST ALT Alkaline Phosphatase Ammonia Troponin I Cancelled Cancelled Total Protein Albumin Urine Color Yellow Urine Clarity Clear Urine pH 5.5 Ur Specific [place] >= 1.030 H Urine Protein 100 H Urine Ketones 15 H Urine Blood Trace-intact H Urine Nitrite Negative Urine Bilirubin Negative Urine Urobilinogen 0.2 Ur Leukocyte Esterase Negative Urine RBC 0-2 Urine WBC 3-5 Ur Epithelial Cells Moderate Urine Crystals Many amorphous Urine Bacteria Negative Urine Casts Negative Urine Mucus Negative Ur Culture Indicated? No Urine Glucose Negative Urine Opiates Screen Urine Methadone Screen Ur Barbiturates Screen Ur Tricyclics Screen Ur Amphetamines Screen U Benzodiazepines Scrn Urine Cocaine Screen Ur THC Screen Ethyl Alcohol 07/27/19 07/27/19 07/27/19 19:30 19:30 19:30 WBC RBC Hgb Hct MCV MCH MCHC RDW Plt Count MPV Immature Gran % Neutrophils % Band Neutrophils % Lymphocytes % Atypical Lymphs % Monocytes % Eosinophils % Basophils % Absolute Neutrophils Absolute Lymphocytes Absolute Monocytes Absolute Eosinophils Absolute Basophils Nucleated RBCs Differential Comment RBC Morphology Macrocytosis PT INR APTT ABG Sample Site ABG pH ABG pCO2 ABG pO2 ABG HCO3 ABG Total CO2 ABG O2 Saturation ABG Base Excess FiO2 Sodium 140 Potassium 3.2 L Chloride 104 Carbon Dioxide 28.9 Anion Gap 7.1 BUN 20 H Creatinine 0.93 Estimated GFR/1.73 m2 >= 60.00 Glucose 125 H Calcium 8.0 L Phosphorus 3.0 Magnesium Total Bilirubin AST ALT Alkaline Phosphatase Ammonia Troponin I 0.06 Total Protein Albumin Urine Color Urine Clarity Urine pH Ur Specific [place] Urine Protein Urine Ketones Urine Blood Urine Nitrite Urine Bilirubin Urine Urobilinogen Ur Leukocyte Esterase Urine RBC Urine WBC Ur Epithelial Cells Urine Crystals Urine Bacteria Urine Casts Urine Mucus Ur Culture Indicated? Urine Glucose Urine Opiates Screen Urine Methadone Screen Ur Barbiturates Screen Ur Tricyclics Screen Ur Amphetamines Screen U Benzodiazepines Scrn Urine Cocaine Screen Ur THC Screen Ethyl Alcohol 07/27/19 21:00 WBC RBC Hgb Hct MCV MCH MCHC RDW Plt Count MPV Immature Gran % Neutrophils % Band Neutrophils % Lymphocytes % Atypical Lymphs % Monocytes % Eosinophils % Basophils % Absolute Neutrophils Absolute Lymphocytes Absolute Monocytes Absolute Eosinophils Absolute Basophils Nucleated RBCs Differential Comment RBC Morphology Macrocytosis PT INR APTT ABG Sample Site Right radial ABG pH 7.37 ABG pCO2 50 H ABG pO2 126 H ABG HCO3 29 H ABG Total CO2 26 ABG O2 Saturation 98 ABG Base Excess 3.3 H FiO2 60 Sodium Potassium Chloride Carbon Dioxide Anion Gap BUN Creatinine Estimated GFR/1.73 m2 Glucose Calcium Phosphorus Magnesium Total Bilirubin AST ALT Alkaline Phosphatase Ammonia Troponin I Total Protein Albumin Urine Color Urine Clarity Urine pH Ur Specific [place] Urine Protein Urine Ketones Urine Blood Urine Nitrite Urine Bilirubin Urine Urobilinogen Ur Leukocyte Esterase Urine RBC Urine WBC Ur Epithelial Cells Urine Crystals Urine Bacteria Urine Casts Urine Mucus Ur Culture Indicated? Urine Glucose Urine Opiates Screen Urine Methadone Screen Ur Barbiturates Screen Ur Tricyclics Screen Ur Amphetamines Screen U Benzodiazepines Scrn Urine Cocaine Screen Ur THC Screen Ethyl Alcohol Last Vital Signs Temp 36.4 C L 07/27/19 20:30 Pulse 53 L 07/27/19 21:20 Resp 15 07/27/19 21:21 BP 71/46 L 07/27/19 21:20 Pulse Ox 97 07/27/19 21:21 COVID-19 Screening Traveled to [place] from one of the affected countries or regions?: NO Recent travel in the [place] within the last 8 weeks?: No Recent out of the country travel within the last 8 weeks?: No Exposure or possible exposure to illness during travel?: No Had IN PERSON contact w/suspected or confirmed C-19 person: No Have you had the following symptoms in the past few days?: No Symptoms noted since travel?: No Symptoms
[2019-07-27] MEDS: Normal Saline 500 ML 1000 ML IV (21:44)
[2019-07-27] MEDS: Enoxaparin 40 MG/0.4 ML SYR SC (22:27)
[2019-07-27] MEDS: Pantoprazole 40 MG VIAL IVP (22:27)
[2019-07-27 23:40] LABS: Troponin I 0.05 ng/Ml (<0.06)
[2019-07-28] VITALS (199 sets, daily range): BP systolic 87–198; BP diastolic 55–112; PULSE 51–110; RESP 15–23; TEMP 36–37.9; O2SAT 82–100
[2019-07-28] MEDS: Normal Saline 500 ML IV (01:53)
[2019-07-28] MEDS: THIAMINE 100 MG in Normal Saline 100 ML 200 MG IVPB (02:17)
[2019-07-28] MEDS: POTASSIUM CHLORIDE 20 MEQ/100 ML BAG 50 MEQ IVPB (02:38)
[2019-07-28] MEDS: PIPERACILLIN/TAZO 4.5 GM in Normal Saline 100 ML IVPB ×3 (02:39→18:20)
[2019-07-28] MEDS: POTASSIUM CHLORIDE/D5-0.45NACL 1,000 ML 150 MEQ IV (03:57)
[2019-07-28] MEDS: MIDAZOLAM 50 MG in Normal Saline 90 ML 13.13 MG IV ×2 (06:09→12:49)
[2019-07-28 06:27] LABS: INR 1.1 (0.9-1.1); Prothrombin Time 10.8 sec (9.3-11.0)
[2019-07-28 06:58] LABS: ALT 21 U/L (16-63); AST 23 U/L (15-37); Albumin 2.7 g/dL (3.4-5.0); Alkaline Phosphatase 55 U/L (46-116); Anion Gap 8.2 mmol/L (3-11); BUN 18 mg/dL (7-18); C-Reactive Protein 1.92 mg/dL (0.0-0.3); CO2 25.8 mmol/L (21.0-32.0); CREATININE 1.03 mg/dL (0.70-1.30); Calcium 7.3 mg/dL (8.5-10.1); Chloride 105 mmol/L (98-107); Glucose 203 mg/dL (74-106); Magnesium 1.9 mg/dL (1.8-2.4); Potassium 3.8 mmol/L (3.5-5.1); Sodium 139 mmol/L (136-145); TSH 1.95 uIU/mL (0.36-3.74); Total Protein 5.9 g/dL (6.4-8.2); Troponin I < 0.05 ng/Ml (<0.06)
[2019-07-28 07:05] LABS: Procalcitonin < 0.1 ng/mL
[2019-07-28 07:25] LABS: BE 0.8 mmol/L (-3-3); HCO3 26 mmol/L (22-28); pCO2 43 mmHg (34-47); pH 7.39 (7.35-7.45); pO2 107 mmHg (83-108); sO2 97 % (94-98); tCO2 23 mmol/L (22-29)
[2019-07-28 07:28] LABS: FIO2 40 %; Site Right Radial
[2019-07-28 07:58] LABS: HCT 39.9 % (40.0-50.0); HGB 13.2 g/dL (13.5-17.5); Mean Corp. HGB Concentration 33.1 g/dL (32.0-36.0); Mean Corpuscular Hemoglobin 31.6 pg (27.0-33.0); Mean Corpuscular Volume 95.5 fL (80-95); RBC 4.18 m/cumm (4.50-6.00); RBC Distribution Width 14.8 % (11.8-14.1); White Blood Cell Count 5.89 k/cumm (4.4-10.8)
[2019-07-28 07:59] LABS: Absolute Lymphocyte Count 1.24 k/cumm (1.2-3.4); Absolute Monocyte Count 0.77 k/cumm (0.11-0.7); Absolute Neutrophil Count 3.89 k/cumm (1.2-6.7); Atypical Lymphocytes % 5; Mean Platelet Volume 10.1 fL (8.0-11.0); Platelet Count 219 x1000/uL (130-400)
[2019-07-28 08:00] LABS: Diff Comment Manual Differential; RBC Morphology Normal
[2019-07-28 08:33] LABS: ESR 12 mm/hr (1-20)
[2019-07-28] MEDS: MULTIVITAMIN 10 ML, THIAMINE 100 MG, FOLIC ACID 1 MG in DEXTROSE 5%-0.45% SALINE 1,000 ML 42 ML IV (09:10)
[2019-07-28] MEDS: levETIRAcetam 1,000 MG in Normal Saline 100 ML 400 MG IVPB (09:10)
[2019-07-28 09:16] LABS: Creatine Kinase 117 U/L (39-308)
--- NOTE | 2019-07-28 09:30 | PT.INNT ---
PT Notes Visit Reasons: ALCOHOL WITHDRAWAL SEIZURE PT consult attempted patient still intubated, nursing requests hold until extubated.
[2019-07-28] MEDS: fentaNYL 1,000 MCG in Normal Saline 80 ML 7.1 MCG IV (09:33)
[2019-07-28] MEDS: Budesonide/Formoterol 160/4.5 6 GM 60 PUFF INH IH (10:01)
[2019-07-28] MEDS: Lactulose 20 GM/30 ML CUP NG ×2 (10:18→21:30)
--- NOTE | 2019-07-28 12:25 | PHA.REVIEW ---
Pharmacy Admission Review - Admission Clinical Review (Last Reviewed 07/28/19 @ 01:21 by Álvaro Roger) Hypotension (Acute) Acute respiratory failure (Acute) Alcohol withdrawal seizure with complication (Acute) Seizure (Acute) No Known Allergies Allergy (Unverified 07/27/19 19:06) Weight 101 kg - Renal Dosing Renal Dosing: BUN 18 mg/dL (7-18) 07/28/19 05:45 Creatinine 1.03 mg/dL (0.70-1.30) 07/28/19 05:45 Medications needing adjustments: Reviewed - Anticoagulation Anticoagulation: Hgb 13.2 g/dL (13.5-17.5) L D 07/28/19 05:45 Hct 39.9 % (40.0-50.0) L D 07/28/19 05:45 Plt Count 219 x1000/uL (130-400) 07/28/19 05:45 INR 1.1 (0.9-1.1) 07/28/19 05:45 Creatinine 1.03 mg/dL (0.70-1.30) 07/28/19 05:45 DVT Prohphylaxis: Reviewed Medications: Enoxaparin Therapeutic Anticoagulation: N/A - Opiate Usage Evaluate Pain Scale/Pains Meds: Reviewed - Relevant Labs ESR 12 mm/hr (1-20) 07/28/19 05:45 Sodium 139 mmol/L (136-145) 07/28/19 05:45 Potassium 3.8 mmol/L (3.5-5.1) 07/28/19 05:45 Chloride 105 mmol/L (98-107) 07/28/19 05:45 Phosphorus 3.0 mg/dL (2.6-4.7) 07/27/19 19:30 Magnesium 1.9 mg/dL (1.8-2.4) 07/28/19 05:45 C-Reactive Protein 1.92 mg/dL (0.0-0.3) H 07/28/19 05:45 Electrolytes, C-Reactive P, ESR: Reviewed - DM Control DM Control: Glucose 203 mg/dL (74-106) H D 07/28/19 05:45 Insulin Dosing: Reviewed - Heart Failure/IL Heart Failure/IL: Troponin I < 0.05 ng/Ml (<0.06) 04/15/20 05:45 EF%, PRO's, B-Blockers, Diuretics: Reviewed - BP Control BP Control: Blood Pressure [Right Arm] 100/66 Blood Pressure [Right Arm] 103/65 Blood Pressure 96/61 Blood Pressure 92/59 Blood Pressure 109/68 Blood Pressure 119/78 Blood Pressure 108/68 Blood Pressure 105/70 Blood Pressure 115/75 Blood Pressure 120/81 Blood Pressure 100/66 Blood Pressure 100/66 Blood Pressure 97/67 Blood Pressure 135/87 Blood Pressure 103/65 Blood Pressure 135/87 Blood Pressure 108/66 Blood Pressure 105/68 Blood Pressure 119/70 Blood Pressure 116/73 Blood Pressure 111/70 Blood Pressure 108/68 Blood Pressure 127/81 Blood Pressure 122/71 Blood Pressure 111/70 Blood Pressure 124/74 Blood Pressure 130/73 Blood Pressure 127/71 If elevated: Reviewed - Qtc Review If Elevated: Reviewed - IV to PO Switch IV Medications: Reviewed - Home Meds Home Med List reviewed: Reviewed Relevent Home Meds Not ordered & why?: Losartan, HCTZ: pt currently intubated - Current meds Current Medication Order Review: Reviewed - Comments Comments/Follow Ups: Intubated to maintain airway folloing tonic clonic seizure in the ED. Waiting for consult from neuro -- may JOSSIE centeno as pt is being sedated with midazolam. Pressors have been dc'd, continue IV fluids. Zosyng for aspiration PNA
--- NOTE | 2019-07-28 13:15 | CHAPLAIN ---
Rick is intubated and not able to speak at this time. I received a call from his facility maintenance manager, Rev. Epifanio Quesada from the [facility] who said that Rick's mom, also member of the [employer], is worried about Rick and looking for information about him. Neither Rev. Chamorro or Rick's mom, Lidia, are on Rick's HIPPA form so I was not able to give Rev. Chamorro any information. I will visit Rick when that is allowed.
--- NOTE | 2019-07-28 13:20 | W.PM.PROGNOT ---
Date of Service Date of service: 07/28/19 Time of Service: 13:21 Assessment and Plan Assessment and plan (1) Alcohol withdrawal seizure with complication: Status: Acute Assessment and plan: Await EEG. For now, continue midazolam. Obtain phone consultation with neurology once EEG results available - will hopefully be able to stop keppra. Monitor mental status on midazolam. Continue banana bag daily. Check B12/folate levels. (2) Acute respiratory failure: Status: Acute Assessment and plan: Intubated in ED for airway protection during seizure. At this point, stable on ventilator. Continue to monitor daily ABG's. Repeat CXR to confirm position of ET tube. Though extremely unlikely that the patient has COVID, will r/o COVID 19. Qualifiers: Respiratory failure complication: unspecified whether with hypoxia or hypercapnia Qualified Code(s): J96.00 - Acute respiratory failure, unspecified whether with hypoxia or hypercapnia (3) Hypotension: Status: Acute Assessment and plan: Agree that this is due to sedation as well as hypovolemia. No longer requiring pressors. Continue IVF, ensuring the patient does not get fluid overloaded. Qualifiers: Hypotension type: unspecified hypotension type Qualified Code(s): I95.9 - Hypotension, unspecified (4) Aspiration pneumonia: Status: Suspected Assessment and plan: Continue zosyn. Repeat CXR pending Qualifiers: Aspiration pneumonia type: unspecified Laterality: left Lung location: lower lobe of lung Qualified Code(s): J69.0 - Pneumonitis due to inhalation of food and vomit (5) DVT prophylaxis: Status: Acute Assessment and plan: SC lovenox (6) Discharge planning issues: Status: Acute Assessment and plan: Full code Continues to require ICU. Continues to require soft upper limb restraints to prevent self-extubation. Total critical Care time 45 minutes. Subjective Subjective Interval history since last seen: Remains intubated, sedated with midazolam. No more seizures. No longer on pressors since this am. Unable to answer questions, not waking up to verbal or painful stimuli this am. Exam Narrative Exam Narrative: General: Middle-aged male, intubated and sedated, not arousable to verbal or painful stimuli, not following commands HEENT: Eyes closed - when I open them to examine, pupils are pinpoint, not tracking; MMM Heart: RRR, no m/r/g Lungs: CTAB Abdomen: soft, nondistended Extremities: no e/c/c BLE's Objective Objective Clinical Data: Abnormal lab results 07/27/19 07/27/19 07/27/19 Range/Units 16:28 16:28 16:28 WBC 14.49 H (4.4-10.8) k/cumm RBC (4.50-6.00) m/cumm Hgb (13.5-17.5) g/dL Hct 51.7 H (40.0-50.0) % MCV 95.6 H (80-95) fL RDW 14.7 H (11.8-14.1) % Absolute Lymphocytes 6.81 H (1.2-3.4) k/cumm Absolute Monocytes 1.01 H (0.11-0.7) k/cumm ABG pCO2 (34-47) mmHg ABG pO2 (83-108) mmHg ABG HCO3 (22-28) mmol/L ABG Base Excess (-3-3) mmol/L Potassium 3.4 L (3.5-5.1) mmol/L Carbon Dioxide 19.8 L (21.0-32.0) mmol/L Anion Gap 21.2 H (3-11) mmol/L BUN 23 H (7-18) mg/dL Glucose 123 H (74-106) mg/dL Calcium (8.5-10.1) mg/dL Magnesium 1.6 L (1.8-2.4) mg/dL Ammonia (11-32) umol/L C-Reactive Protein (0.0-0.3) mg/dL Total Protein 8.4 H (6.4-8.2) g/dL Albumin (3.4-5.0) g/dL Ur Specific [place] (1.005-1.025) Urine Protein (Negative) mg/dL Urine Ketones (Negative) mg/dL Urine Blood (Negative) 07/27/19 07/27/19 07/27/19 Range/Units 16:28 17:10 19:30 WBC (4.4-10.8) k/cumm RBC (4.50-6.00) m/cumm Hgb (13.5-17.5) g/dL Hct (40.0-50.0) % MCV (80-95) fL RDW (11.8-14.1) % Absolute Lymphocytes (1.2-3.4) k/cumm Absolute Monocytes (0.11-0.7) k/cumm ABG pCO2 (34-47) mmHg ABG pO2 (83-108) mmHg ABG HCO3 (22-28) mmol/L ABG Base Excess (-3-3) mmol/L Potassium 3.2 L (3.5-5.1) mmol/L Carbon Dioxide (21.0-32.0) mmol/L Anion Gap (3-11) mmol/L BUN 20 H (7-18) mg/dL Glucose 125 H (74-106) mg/dL Calcium 8.0 L (8.5-10.1) mg/dL Magnesium (1.8-2.4) mg/dL Ammonia 119 H (11-32) umol/L C-Reactive Protein (0.0-0.3) mg/dL Total Protein (6.4-8.2) g/dL Albumin (3.4-5.0) g/dL Ur Specific [place] >= 1.030 H (1.005-1.025) Urine Protein 100 H (Negative) mg/dL Urine Ketones 15 H (Negative) mg/dL Urine Blood Trace-intact H (Negative) 07/27/19 07/28/19 07/28/19 Range/Units 21:00 05:45 05:45 WBC (4.4-10.8) k/cumm RBC 4.18 L (4.50-6.00) m/cumm Hgb 13.2 L D (13.5-17.5) g/dL Hct 39.9 L D (40.0-50.0) % MCV 95.5 H (80-95) fL RDW 14.8 H (11.8-14.1) % Absolute Lymphocytes (1.2-3.4) k/cumm Absolute Monocytes 0.77 H (0.11-0.7) k/cumm ABG pCO2 50 H (34-47) mmHg ABG pO2 126 H (83-108) mmHg ABG HCO3 29 H (22-28) mmol/L ABG Base Excess 3.3 H (-3-3) mmol/L Potassium (3.5-5.1) mmol/L Carbon Dioxide (21.0-32.0) mmol/L Anion Gap (3-11) mmol/L BUN (7-18) mg/dL Glucose 203 H D (74-106) mg/dL Calcium 7.3 L (8.5-10.1) mg/dL Magnesium (1.8-2.4) mg/dL Ammonia (11-32) umol/L C-Reactive Protein 1.92 H (0.0-0.3) mg/dL Total Protein 5.9 L (6.4-8.2) g/dL Albumin 2.7 L (3.4-5.0) g/dL Ur Specific [place] (1.005-1.025) Urine Protein (Negative) mg/dL Urine Ketones (Negative) mg/dL Urine Blood (Negative) Vital Signs Temperature 37.3 C 07/28/19 12:00 Temperature Source Tympanic 07/28/19 12:00 Pulse 56 L 07/28/19 12:00 Pulse 58 L 07/28/19 11:01 Respiratory Rate 18 07/28/19 12:00 Respiratory Effort 07/28/19 12:00 Respiratory Depth Normal 07/27/19 23:34 Respiratory Pattern Normal 07/27/19 23:34 Blood Pressure 87/55 L 07/28/19 12:00 Blood Pressure Mean 65 07/28/19 12:00 Blood Pressure Position Supine 07/28/19 07:25 Pulse Oximetry 93 L 07/28/19 12:00 Respiratory End-tidal CO2 27 07/28/19 11:30 Oxygen Delivery Method Mechanical Ventilator 07/28/19 12:00 Oxygen Flow Rate 0 07/28/19 12:00 Fraction of Inspired Oxygen (FIO2) 30 07/28/19 11:30 Pain Level 0 07/28/19 04:08 Intake & Output 07/27/19 07/28/19 07/28/19 23:59 11:59 23:59 Intake Total 816.957 / 751.254 0146.354 / 3116.722 62.368 / 3116.722 Output Total 500 / 500 200 / 200 Balance 316.957 / 773.701 4047.354 / 2916.722 62.368 / 2916.722 Weight 101 kg 101 kg Intake: IV 816.957 / 224.154 2131.354 / 3116.722 62.368 / 3116.722 Output: Gastric Drainage 0 / 0 Right Nare 0 / 0 Urine 500 / 500 200 / 200 Other: Urine Color Yellow Yellow Urine Appearance Sediment Sediment Comment pt has hancock in place draining yellow urine with sediment in it. hancock in place draining yellow urine with sediment. hancock in place draining dark yellow urine with sediment. Laboratory Results WBC 5.89 k/cumm (4.4-10.8) D 07/28/19 05:45 RBC 4.18 m/cumm (4.50-6.00) L 07/28/19 05:45 Hgb 13.2 g/dL (13.5-17.5) L D 07/28/19 05:45 Hct 39.9 % (40.0-50.0) L D 07/28/19 05:45 MCV 95.5 fL (80-95) H 07/28/19 05:45 MCH 31.6 pg (27.0-33.0) 07/28/19 05:45 MCHC 33.1 g/dL (32.0-36.0) 07/28/19 05:45 RDW 14.8 % (11.8-14.1) H 07/28/19 05:45 Plt Count 219 x1000/uL (130-400) 07/28/19 05:45 MPV 10.1 fL (8.0-11.0) 07/28/19 05:45 Immature Gran % 0.0 % 07/28/19 05:45 Neutrophils % 66.0 07/28/19 05:45 Band Neutrophils % 2.0 % 07/27/19 16:28 Lymphocytes % 16.0 07/28/19 05:45 Atypical Lymphs % 5 07/28/19 05:45 Monocytes % 13.0 07/28/19 05:45 Eosinophils % 0.0 07/28/19 05:45 Basophils % 0.0 07/28/19 05:45 Absolute Neutrophils 3.89 k/cumm (1.2-6.7) 07/28/19 05:45 Absolute Lymphocytes 1.24 k/cumm (1.2-3.4) 07/28/19 05:45 Absolute Monocytes 0.77 k/cumm (0.11-0.7) H 07/28/19 05:45 Absolute Eosinophils 0.00 k/cumm (0.0-0.7) 07/28/19 05:45 Absolute Basophils 0.00 k/cumm (0.0-0.2) 07/28/19 05:45 Nucleated RBCs 1 /100WBC 07/27/19 16:28 Differential Comment Manual differential 07/28/19 05:45 RBC Morphology Normal 07/28/19 05:45 Macrocytosis 1+ 07/27/19 16:28 ESR 12 mm/hr (1-20) 07/28/19 05:45 PT 10.8 sec (9.3-11.0) 07/28/19 05:45 INR 1.1 (0.9-1.1) 07/28/19 05:45 APTT 23.1 sec (21.0-31.4) 07/27/19 16:28 ABG Sample Site Right radial 07/28/19 07:18 ABG pH 7.39 (7.35-7.45) 07/28/19 07:18 ABG pCO2 43 mmHg (34-47) 07/28/19 07:18 ABG pO2 107 mmHg (83-108) 07/28/19 07:18 ABG HCO3 26 mmol/L (22-28) 07/28/19 07:18 ABG Total CO2 23 mmol/L (22-29) 07/28/19 07:18 ABG O2 Saturation 97 % (94-98) 07/28/19 07:18 ABG Base Excess 0.8 mmol/L (-3-3) 07/28/19 07:18 Oxygen Liter Flow Vt430/peep5/r18 L 07/28/19 07:18 FiO2 40 % 07/28/19 07:18 Sodium 139 mmol/L (136-145) 07/28/19 05:45 Potassium 3.8 mmol/L (3.5-5.1) 07/28/19 05:45 Chloride 105 mmol/L (98-107) 07/28/19 05:45 Carbon Dioxide 25.8 mmol/L (21.0-32.0) 07/28/19 05:45 Anion Gap 8.2 mmol/L (3-11) 07/28/19 05:45 BUN 18 mg/dL (7-18) 07/28/19 05:45 Creatinine 1.03 mg/dL (0.70-1.30) 07/28/19 05:45 Estimated GFR/1.73 m2 >= 60.00 (mL/min/1.73m2) 07/28/19 05:45 Glucose 203 mg/dL (74-106) H D 07/28/19 05:45 Calcium 7.3 mg/dL (8.5-10.1) L 07/28/19 05:45 Phosphorus 3.0 mg/dL (2.6-4.7) 07/27/19 19:30 Magnesium 1.9 mg/dL (1.8-2.4) 07/28/19 05:45 Total Bilirubin 1.0 mg/dL (0.2-1.0) 07/28/19 05:45 AST 23 U/L (15-37) 07/28/19 05:45 ALT 21 U/L (16-63) 07/28/19 05:45 Alkaline Phosphatase 55 U/L (46-116) 07/28/19 05:45 Ammonia 119 umol/L (11-32) H 07/27/19 16:28 Creatine Kinase 117 U/L (39-308) 07/28/19 05:45 Troponin I < 0.05 ng/Ml (<0.06) 07/28/19 05:45 C-Reactive Protein 1.92 mg/dL (0.0-0.3) H 07/28/19 05:45 Total Protein 5.9 g/dL (6.4-8.2) L 07/28/19 05:45 Albumin 2.7 g/dL (3.4-5.0) L 07/28/19 05:45 Procalcitonin < 0.1 ng/mL 07/28/19 05:45 TSH 1.95 uIU/mL (0.36-3.74) 07/28/19 05:45 Urine Color Yellow (Yellow) 07/27/19 17:10 Urine Clarity Clear (Clear) 07/27/19 17:10 Urine pH 5.5 (5-8) 07/27/19 17:10 Ur Specific [place] >= 1.030 (1.005-1.025) H 07/27/19 17:10 Urine Protein 100 mg/dL (Negative) H 07/27/19 17:10 Urine Ketones 15 mg/dL (Negative) H 07/27/19 17:10 Urine Blood Trace-intact (Negative) H 07/27/19 17:10 Urine Nitrite Negative (Negative) 07/27/19 17:10 Urine Bilirubin Negative (Negative) 07/27/19 17:10 Urine Urobilinogen 0.2 EU/dL (Up TO 0.2) 07/27/19 17:10 Ur Leukocyte Esterase Negative (Negative) 07/27/19 17:10 Urine RBC 0-2 HPF (0-2) 07/27/19 17:10 Urine WBC 3-5 HPF (0-5) 07/27/19 17:10 Ur Epithelial Cells Moderate HPF (Negative) 07/27/19 17:10 Urine Crystals Many amorphous HPF (Negative) 07/27/19 17:10 Urine Bacteria Negative HPF (Negative) 07/27/19 17:10 Urine Casts Negative LPF (Negative) 07/27/19 17:10 Urine Mucus Negative (Negative) 07/27/19 17:10 Ur Culture Indicated? No 07/27/19 17:10 Urine Glucose Negative mg/dL (Negative) 07/27/19 17:10 Urine Opiates Screen Negative (Negative) 07/27/19 17:10 Urine Methadone Screen Negative (Negative) 07/27/19 17:10 Ur Barbiturates Screen Negative (Negative) 07/27/19 17:10 Ur Tricyclics Screen Negative (Negative) 07/27/19 17:10 Ur Amphetamines Screen Negative (Negative) 07/27/19 17:10 U Benzodiazepines Scrn Negative (Negative) 07/27/19 17:10 Urine Cocaine Screen Negative (Negative) 07/27/19 17:10 Ur THC Screen Negative (Negative) 07/27/19 17:10 Ethyl Alcohol < 3.0 mg/dL (<3) 07/27/19 16:28 CXR: pending echo: done, pending
--- NOTE | 2019-07-28 13:51 | INITIAL_ITS ---
- If Service Date Differs Date of service: 07/28/19 Time of Service: 14:07 Care Management Initial Assess REASON FOR HOSPITALIZATION:: Alcohol withdrawal seizure PAST MEDICAL HISTORY/PAST SURGICAL HISTORY:: Medical History . Dyslipidemia. Dysphagia. Heart burn. Hx of adenomatous polyp of colon. Hypertension. Obesity (BMI 30.0-34.9). Surgical History . Colonoscopy - [facility]. 2010-nl. EGD - [facility] (05/19/17) PREVIOUS FUNCTIONAL STATUS/SOCIAL/FAMILY SUPPORTS:: Rick lives in [place] with his , Emile. He is a retired . He is independent at baseline. CURRENT FUNCTIONAL STATUS:: Per report, Rick is currently intubated and being cared for in the ICU. CM discussed the care plan with the primary RN, who reported that his daughter called, but she is not on the current HIPPA, so they directed her to the people who are on the HIPPA. Rick was not able to communicate during the visit with CM. CM will continue to follow. ADVANCE DIRECTIVES:: DPOA on file- Emile listed as agent. Has patient been provided with information about the portal?: No Did the patient sign up for the portal?: No CODE STATUS:: Full Code INSURANCE COVERAGE / FINANCIAL ISSUES:: [facility]/ BCBS CURRENT HOME/COMMUNITY SERVICES/EQUIPMENT:: Rick does not have any current services or equipment. PRIMARY CARE PHYSICIAN:: Jack Reese POTENTIAL DISCHARGE NEEDS:: Evaluations for further needs, follow up appointments PATIENT/FAMILY EDUCATION NEEDS:: Review discharge instructions regarding activity levels and medications, discussion of self care needs including ask me three ANTICIPATED BARRIERS TO DISCHARGE:: None identified at this time. TRANSPORTATION:: Anticipate he will be driven home via private vehicle by family. PLAN:: Rick is currently intubated under ICU level of care. Anticipate once he is medically cleared he will return home with no additional services. Anticipate he will be driven home via private vehicle by family. CM will continue to follow and support pt and family with discharge planning considerations.
--- NOTE | 2019-07-28 14:21 | W.NUTCONSULT ---
Date of service: 07/28/19 Time of Service: 14:21 Nutritional Consult ASSESSMENT: 73 year old male in ICU with ETOH withdrawl/seizrue, aspiration PNA, hypotension, acute respiratory failure. PMH: HTN, hyperlipidemia, hx of dysphagia. Currently NPO, NG placed for enteral feeding. BMI indicates class 1 obesity, labs indicate elevated blood sugars, no hx of DM. Estimated needs (BEE x1.2): 1213-8055 kcal, 61-77 g protein, 1700 ml fluid(based on adjusted body weight of 77 kg). Recommend Jevity 1.5 @44cc/hour (total volume 1L), flush 250 ml q 6 hours provides total of 1500 kcal (15cal/kg), 60 g protein(0.8 g pro/ABW) and 1700 ml fluid (16cc/kg), may need additional fluid, will monitor electrolytes. Fluid needs difficult to estimate due to obesity and overestimation a chronic error that may lead to fluid overload. Also, due to long history of ETOH abuse, at risk for refeeding. Will start feeding at 83% of estimated needs, monitor Mg, Phos, Ca, sodium daily until normalized. Continue MVI, thiamin, folic acid for repletion. NUTRITIONAL DIAGNOSIS: Hx of excessive alcohol abuse leading risk of multiple nutrient deficiencies inability to meet nutrient and fluid needs by mouth due to acute respiratory failure/vent requiring enteral feeding INTERVENTION: Vitamin/mineral supplementatio with MVI, folic acid and thiamine Enteral feedings and flushes to meet nutrient/fluid needs: Jevity 1.5 44 cc@hour total volume 1 L/24 hours, FLUSH 250 ml q 6 hours providing total of 1500 kcal, 60 g protein, 1720 ml fluid MONITORING AND EVALUATION: labs, weight, enteral tolerance Time Spent in Nutritional Counseling and Treatment: 0 time spent face to face
--- NOTE | 2019-07-28 14:22 | DI.RAD_ITS ---
EXAM: XR PORTABLE CHEST AP POST LINE CLINICAL HISTORY: FOLLOW UP ET TUBE POSITION TECHNIQUE: 2D digital imaging was performed. COMPARISON: XR PORTABLE CHEST AP POST LINE from 07/27/2019 FINDINGS: MEDIASTINUM: Normal. HEART: Cardiac silhouette is stable. PULMONARY VASCULATURE: Normal. LUNGS: Continued clearing is noted in the left lower lobe. A residual atelectasis or pneumonia is no aida. The right lung remains clear. PLEURAL SPACE: No pleural effusion or pneumothorax. BONE:Normal. OTHER FINDINGS:The endotracheal tube has been retracted. The tip now lies at the level of the thorac ic inlet 6 cm above the temi. The nasogastric tube passes into the stomach. IMPRESSION: Persistent left basilar infiltrate, which may represent atelectasis or pneumonia. The endotracheal tube has been retracted. The tip lies approximately 6 cm above the temi. DATA REPOSITORY: RADIATION DOSE DELIVERED:
--- NOTE | 2019-07-28 14:59 | PDOC.EEG_ITS ---
Neurology EEG EEG: [facility] Department of Neurology INPATIENT EEG REPORT Date of Recordin07/28/19 Interpreting Physician: Dr. Deepika Chatterjee Reason for study: Mr. Crystal is a 73 year-old man who had a seizure followed by unresponsiveness, s/p intubation for airway protection. He is on an IV midazolam drip and s/p levetiracetam. Current Medications: Current Medications Acetaminophen (Tylenol) 650 mg NE Q4H PRN PRN Albuterol Sulfate (Proventil Updraft) 2.5 mg UPD Q2H PRN PRN Albuterol/Ipratropium (Duoneb Updraft) 3 ml UPD Q4H PRN PRN Budesonide/Formoterol Fumarate (Symbicort 160/4.5 Mcg Inhaler) 0 puff IH BID MAEGAN Last Admin: 07/28/19 10:01 Dose: 6 puffs Documented by: Carboxymethylcellulose Sodium (Refresh Plus Eye Drops) 1 each OU Q6H MAEGAN Dimethicone/Zinc Oxide (Lora Protect Cream) 0 gm TP PRN PRN Enoxaparin Sodium (Lovenox) 40 mg SC Q24H MAEGAN Last Admin: 07/27/19 22:27 Dose: 40 mg Documented by: Fentanyl 1,000 mcg/ Sodium (Chloride) 100 mls @ 10.1 mls/hr IV INFUSION [facility]; Protocol Last Titration: 07/28/19 13:30 Dose: 0.7 mcg/kg/hr, 7.1 mls/hr Documented by: Midazolam HCl 50 mg/ Sodium (Chloride) 100 mls @ 10.1 mls/hr IV INFUSION [facility]; Protocol Last Titration: 07/28/19 13:30 Dose: 65 mcg/kg/hr, 13.13 mls/hr Documented by: Levetiracetam 1,000 mg/ Sodium (Chloride) 110 mls @ 400 mls/hr IVPB Q12H MAEGAN Last Infusion: 07/28/19 10:19 Dose: Infused Documented by: Multivitamins 10 ml/ Thiamine HCl 100 mg/ Folic Acid 1 mg/Dextrose/Sodium Chloride 1,011.2 mls @ 150 mls/hr IV DAILY MAEGAN Last Infusion: 07/28/19 12:49 Dose: 150 mls/hr Documented by: Norepinephrine Bitartrate 4, (000 mcg/ Dextrose/Water) 250 mls @ 30 mls/hr IV INFUSION [facility]; Protocol Last Titration: 07/28/19 07:30 Dose: Infused Documented by: Piperacillin Sod/Tazobactam (Sod 4.5 gm/ Sodium Chloride) 100 mls @ 25 mls/hr IVPB Q8H [facility]; Protocol Last Infusion: 07/28/19 13:30 Dose: 25 mls/hr Documented by: Potassium Chloride/Sodium Chloride (Kcl 20meq/Ns) 1,000 mls @ 150 mls/hr IV INFUSION [facility] IV Miscellaneous Supplies () 1 each IV DIRECTED [facility] Iohexol (Omnipaque 350) 100 ml IV DIRECTED [facility] Stop: 08/26/19 23:59 Last Admin: 07/27/19 17:49 Dose: 100 ml Documented by: Lactulose (Cephulac) 20 gm NG BID [facility] Last Admin: 07/28/19 10:18 Dose: 20 gm Documented by: Lorazepam (Ativan Injection) 0 mg IVP DIRECTED PRN Pantoprazole Sodium (Protonix Injection) 40 mg IVP Q24H [facility] Last Admin: 07/27/19 22:27 Dose: 40 mg Documented by: Sodium Chloride (Saline Flush 10 Ml Syringe) 0 ml IVP PRN PRN Last Admin: 07/27/19 21:14 Dose: 10 ml Documented by: Sodium Chloride (Saline 50 Ml Diluent Vial) 50 ml IV .FOR DI USE [facility] Last Admin: 07/27/19 17:50 Dose: 50 ml Documented by: METHODS: A 21 channel digitized electroencephalogram was performed in the [facility] Med/Surg Floor or ICU. The 10/20 international system of electrode placement was used and bipolar and referential electrode montages were recorded. In addition to EEG the patient was monitored for EKG and lateral/vertical eye movements. Activation procedures of photic stimulation and hyperventilation were performed if applicable. Video was used during activation procedures and during events where applicable. The duration of the recording was 30 minutes. DESCRIPTION OF EEG: The patient's EEG had no clinically detectable state (e.g. awake, drowsy, etc). The recording was manifested by continuous, polymorphic, generalized, low- to moderate-amplitude delta and theta activity with occasional low voltage alpha activity. There were no focal or epileptic findings. There was no response or change to the rhythm with stimulation from the rvda master certified rv technician. Activating Procedures: Photic stimulation was performed which produced no posterior driving response. Hyperventilation was not performed. EKG: EKG revealed normal sinus rhythm. INTERPRETATION: This EEG is abnormal due to continuous, severe, polymorphic, generalized, low- to moderate-amplitude slowing. PRIOR EEG: none CLINICAL CORRELATION: The background slowing is suggestive of a severe diffuse cerebral encephalopathy of broad differential including toxic-metabolic etiology (e.g. medications). No focal regions of cerebral dysfunction or epileptiform activity was present. Clinical correlation is advised. Deepika Chatterjee MD
[2019-07-28] MEDS: Normal Saline Flush 10 ML SYR IVP ×2 (18:19→22:36)
[2019-07-28] MEDS: Refresh PLUS Eye Drops 0.4ml 1 EACH OU ×2 (18:19→21:30)
[2019-07-28] MEDS: POTASSIUM CHLORIDE/0.9% NACL 1,000 ML 150 MEQ IV (18:24)
[2019-07-28 19:06] LABS: Bilirubin Negative (Negative); Blood Large (Negative); Clarity Cloudy (Clear); Glucose Negative (Negative); Ketones Negative (Negative); Leukocyte Esterase Trace (Negative); Nitrite Negative (Negative); Specific Gravity 1.025 (1.005-1.025); Urobilinogen 0.2 EU/dL (Up TO 0.2); pH 5.5 (5-8)
[2019-07-28 19:29] LABS: C & S Indicated? Yes; Casts Negative LPF (Negative); Epithelial Cells Few HPF (Negative); Mucus Negative (Negative); RBC >50 HPF (0-2); WBC 20-50 HPF (0-5)
[2019-07-28] MEDS: MIDAZOLAM 50 MG in Normal Saline 90 ML 40.4 MG IV (21:29)
[2019-07-28] MEDS: fentaNYL 1,000 MCG in Normal Saline 80 ML 30.3 MCG IV (21:30)
[2019-07-28] MEDS: MORPHine 10 MG/ML VIAL 5 MG IVP (21:36)
[2019-07-28] MEDS: Enoxaparin 40 MG/0.4 ML SYR SC (22:36)
[2019-07-28] MEDS: Pantoprazole 40 MG VIAL IVP (22:37)
[2019-07-29] VITALS (146 sets, daily range): BP systolic 78–150; BP diastolic 46–111; PULSE 44–87; RESP 12–23; TEMP 36.3–36.7; O2SAT 86–100
[2019-07-29] MEDS: POTASSIUM CHLORIDE/0.9% NACL 1,000 ML 150 MEQ IV ×2 (01:13→08:36)
[2019-07-29] MEDS: Refresh PLUS Eye Drops 0.4ml 1 EACH OU ×4 (01:15→19:35)
[2019-07-29] MEDS: PIPERACILLIN/TAZO 4.5 GM in Normal Saline 100 ML IVPB ×3 (01:16→17:25)
[2019-07-29] MEDS: MIDAZOLAM 50 MG in Normal Saline 90 ML 12.12 MG IV ×2 (03:46→12:41)
[2019-07-29] MEDS: Normal Saline 500 ML IV (06:20)
[2019-07-29] MEDS: Normal Saline Flush 10 ML SYR IVP ×6 (06:40→21:14)
[2019-07-29 06:48] LABS: Abs Immature Grans 0.01 k/cumm (0.0-0.09); Absolute Basophil Count 0.03 k/cumm (0.0-0.2); Absolute Eosinophil Count 0.15 k/cumm (0.0-0.7); Absolute Monocyte Count 0.54 k/cumm (0.11-0.7); Absolute Neutrophil Count 3.17 k/cumm (1.2-6.7); Basophils % 0.6; Eosinophils % 2.8; HGB 12.4 g/dL (13.5-17.5); Immature Grans % 0.2 %; Lymphocytes % 26.4; Mean Corp. HGB Concentration 31.8 g/dL (32.0-36.0); Mean Corpuscular Volume 97.5 fL (80-95); Mean Platelet Volume 9.4 fL (8.0-11.0); Monocytes % 10.2; Neutrophils % 59.8; Platelet Count 201 x1000/uL (130-400); RBC Distribution Width 14.9 % (11.8-14.1)
[2019-07-29 07:08] LABS: Ammonia 47 umol/L (11-32)
[2019-07-29 07:11] LABS: Anion Gap 7.5 mmol/L (3-11); BUN 17 mg/dL (7-18); C-Reactive Protein 7.95 mg/dL (0.0-0.3); CO2 24.5 mmol/L (21.0-32.0); CREATININE 1.15 mg/dL (0.70-1.30); Calcium 7.6 mg/dL (8.5-10.1); Chloride 111 mmol/L (98-107); Creatine Kinase 65 U/L (39-308); Glucose 113 mg/dL (74-106); Magnesium 1.8 mg/dL (1.8-2.4); Potassium 3.6 mmol/L (3.5-5.1); Sodium 143 mmol/L (136-145)
[2019-07-29 07:33] LABS: Hemoglobin A1C 5.4 % (3.8-5.6)
[2019-07-29 07:49] LABS: Folate 15.7 ng/mL (8.6-20.0); Vitamin B12 238 pg/mL (193-986)
[2019-07-29] MEDS: Budesonide/Formoterol 160/4.5 6 GM 60 PUFF INH IH ×2 (07:50→19:32)
[2019-07-29] MEDS: Lactulose 20 GM/30 ML CUP NG ×2 (08:37→19:35)
[2019-07-29] MEDS: Cyanocobalamin 500 MCG TAB 1000 MCG NG (08:37)
[2019-07-29] MEDS: MULTIVITAMIN 10 ML, THIAMINE 100 MG, FOLIC ACID 1 MG in DEXTROSE 5%-0.45% SALINE 1,000 ML 150 ML IV (08:41)
[2019-07-29 08:48] LABS: COVID-19 RT-PCR Result Negative (Negative)
[2019-07-29 09:29] LABS: BE -1.1 mmol/L (-3-3); HCO3 24 mmol/L (22-28); pCO2 40 mmHg (34-47); pH 7.39 (7.35-7.45); pO2 65 mmHg (83-108); sO2 92 % (94-98); tCO2 22 mmol/L (22-29)
[2019-07-29 09:32] LABS: Site Left Radial
[2019-07-29 09:33] LABS: FIO2 30 %
[2019-07-29] MEDS: fentaNYL 1,000 MCG in Normal Saline 80 ML 20.2 MCG IV ×4 (10:12→22:26)
[2019-07-29] MEDS: Cyanocobalamin 1000 MCG/ML VIAL IM/SC (10:33)
[2019-07-29] MEDS: Normal Saline 1,000 ML 1000 ML IV (12:43)
--- NOTE | 2019-07-29 13:18 | W.PM.PROGNOT ---
Date of Service Date of service: 07/29/19 Time of Service: 13:18 Assessment and Plan Assessment and plan (1) Alcohol withdrawal seizure with complication: Status: Acute Assessment and plan: EEG with generalized encephalopathy and no focal activity. Fannie d/galloed. Titrating midazolam for daily sedation vacation right now. Continue banana bag daily. Add B12 repletion. (2) Acute respiratory failure: Status: Acute Assessment and plan: Intubated in ED for airway protection during seizure. Obtain CXR as RT reports mild resistance to ensure the tube is still in good position. Continue to monitor daily ABG's. COVID negative. Qualifiers: Respiratory failure complication: unspecified whether with hypoxia or hypercapnia Qualified Code(s): J96.00 - Acute respiratory failure, unspecified whether with hypoxia or hypercapnia (3) Hypotension: Status: Acute Assessment and plan: Due to sedation as well as hypovolemia. Has not required pressors in >24 hrs and appears to be fluid responsive, but MAPS are borderline - will keep order active for now prn. Continue MIVF. Receiving a 500 cc bolus of NS at this time. Qualifiers: Hypotension type: unspecified hypotension type Qualified Code(s): I95.9 - Hypotension, unspecified (4) Aspiration pneumonia: Status: Suspected Assessment and plan: Continue zosyn. Repeat CXR Qualifiers: Aspiration pneumonia type: unspecified Laterality: left Lung location: lower lobe of lung Qualified Code(s): J69.0 - Pneumonitis due to inhalation of food and vomit (5) DVT prophylaxis: Status: Acute Assessment and plan: SC lovenox (6) Discharge planning issues: Status: Acute Assessment and plan: Full code Continues to require ICU. Continues to require soft upper limb restraints to prevent self-extubation. Total critical Care time 45 minutes. Subjective Subjective Interval history since last seen: Remains intubated, sedated. Last night at about 9 pm, had an episode of biting down on the tube, being agitated, pulling out IVs. While initial concern was that the patient was having a seizure again, the fact that he was pulling at IV's indicates that this was likely voluntary and due to undersedation. When sedation was increased, SBP decreased, requiring IVF bolus, to which the patient responded. At this time, the patient's sedation is being weaned for his daily sedation vacation. He cannot answer questions at the time of my exam and is not following commands. Exam Narrative Exam Narrative: General: Middle-aged male, intubated and sedated, not arousable to verbal or painful stimuli, not following commands HEENT: Eyes closed, no longer pinpoint pupils, not tracking; scleral edema Heart: RRR, no m/r/g Lungs: CTAB Abdomen: soft, nondistended Extremities: no e/c/c BLE's Objective Objective Clinical Data: Abnormal lab results 07/28/19 07/29/19 07/29/19 Range/Units 18:00 06:40 06:40 RBC (4.50-6.00) m/cumm Hgb (13.5-17.5) g/dL Hct (40.0-50.0) % MCV (80-95) fL MCHC (32.0-36.0) g/dL RDW (11.8-14.1) % ABG pO2 (83-108) mmHg ABG O2 Saturation (94-98) % Chloride 111 H (98-107) mmol/L Glucose 113 H D (74-106) mg/dL Calcium 7.6 L (8.5-10.1) mg/dL Ammonia 47 H (11-32) umol/L C-Reactive Protein 7.95 H (0.0-0.3) mg/dL Urine Protein 100 H (Negative) mg/dL Urine Blood Large H (Negative) Ur Leukocyte Esterase Trace H (Negative) Urine RBC >50 H (0-2) HPF Urine WBC 20-50 H (0-5) HPF 07/29/19 07/29/19 Range/Units 06:40 09:24 RBC 4.00 L (4.50-6.00) m/cumm Hgb 12.4 L (13.5-17.5) g/dL Hct 39.0 L (40.0-50.0) % MCV 97.5 H (80-95) fL MCHC 31.8 L (32.0-36.0) g/dL RDW 14.9 H (11.8-14.1) % ABG pO2 65 L (83-108) mmHg ABG O2 Saturation 92 L (94-98) % Chloride (98-107) mmol/L Glucose (74-106) mg/dL Calcium (8.5-10.1) mg/dL Ammonia (11-32) umol/L C-Reactive Protein (0.0-0.3) mg/dL Urine Protein (Negative) mg/dL Urine Blood (Negative) Ur Leukocyte Esterase (Negative) Urine RBC (0-2) HPF Urine WBC (0-5) HPF Vital Signs Temperature 36.6 C 07/29/19 08:15 Temperature Source Temporal Artery Scan 07/29/19 08:15 Pulse 50 L 07/29/19 12:46 Pulse 54 L 07/29/19 12:31 Respiratory Rate 13 07/29/19 12:44 Respiratory Effort 07/29/19 08:15 Respiratory Depth Normal 07/29/19 08:15 Respiratory Pattern Normal 07/29/19 08:15 Blood Pressure 83/51 L 07/29/19 12:46 Blood Pressure Mean 58 07/29/19 12:31 Blood Pressure Position Supine 07/28/19 07:25 Pulse Oximetry 100 07/29/19 12:44 Respiratory End-tidal CO2 29 07/29/19 12:44 Oxygen Delivery Method Mechanical Ventilator 07/29/19 04:06 Oxygen Flow Rate 0 07/29/19 04:06 Fraction of Inspired Oxygen (FIO2) 32 07/29/19 12:44 Pain Level 0 07/28/19 23:59 Intake & Output 07/28/19 07/29/19 07/29/19 23:59 11:59 23:59 Intake Total 1508.244 / 4562.598 2874.963 / 2920.693 45.73 / 2920.693 Output Total 1210 / 1410 705 / 855 150 / 855 Balance 298.244 / 3152.598 2169.963 / 2065.693 -104.27 / 2065.693 Weight 101 kg Intake: IV 1508.244 / 4562.598 2824.963 / 2870.693 45.73 / 2870.693 Intake, Tube Feeding Amount 50 / 50 Output: Gastric Drainage 475 / 475 Right Nare 475 / 475 Urine 725 / 925 525 / 675 150 / 675 Output, Residual 10 / 10 180 / 180 Other: Urine Color Yellow Yellow [place] Urine Appearance Cloudy Cloudy Cloudy Sediment Sediment Sediment Mucous Threads Comment fole in place and draining urine hancock Gastric Occult Blood Right Nare Negative Negative Voiding Methods Incontinent Laboratory Results WBC 5.30 k/cumm (4.4-10.8) 07/29/19 06:40 RBC 4.00 m/cumm (4.50-6.00) L 07/29/19 06:40 Hgb 12.4 g/dL (13.5-17.5) L 07/29/19 06:40 Hct 39.0 % (40.0-50.0) L 07/29/19 06:40 MCV 97.5 fL (80-95) H 07/29/19 06:40 MCH 31.0 pg (27.0-33.0) 07/29/19 06:40 MCHC 31.8 g/dL (32.0-36.0) L 07/29/19 06:40 RDW 14.9 % (11.8-14.1) H 07/29/19 06:40 Plt Count 201 x1000/uL (130-400) 07/29/19 06:40 MPV 9.4 fL (8.0-11.0) 07/29/19 06:40 Immature Gran % 0.2 % 07/29/19 06:40 Neutrophils % 59.8 07/29/19 06:40 Band Neutrophils % 2.0 % 07/27/19 16:28 Lymphocytes % 26.4 07/29/19 06:40 Atypical Lymphs % 5 07/28/19 05:45 Monocytes % 10.2 07/29/19 06:40 Eosinophils % 2.8 07/29/19 06:40 Basophils % 0.6 07/29/19 06:40 Absolute Neutrophils 3.17 k/cumm (1.2-6.7) 07/29/19 06:40 Absolute Lymphocytes 1.40 k/cumm (1.2-3.4) 07/29/19 06:40 Absolute Monocytes 0.54 k/cumm (0.11-0.7) 07/29/19 06:40 Absolute Eosinophils 0.15 k/cumm (0.0-0.7) 07/29/19 06:40 Absolute Basophils 0.03 k/cumm (0.0-0.2) 07/29/19 06:40 Nucleated RBCs 1 /100WBC 07/27/19 16:28 Differential Comment Manual differential 07/28/19 05:45 RBC Morphology Normal 07/28/19 05:45 Macrocytosis 1+ 07/27/19 16:28 ESR 12 mm/hr (1-20) 07/28/19 05:45 PT 10.8 sec (9.3-11.0) 07/28/19 05:45 INR 1.1 (0.9-1.1) 07/28/19 05:45 APTT 23.1 sec (21.0-31.4) 07/27/19 16:28 ABG Sample Site Left radial 07/29/19 09:24 ABG pH 7.39 (7.35-7.45) 07/29/19 09:24 ABG pCO2 40 mmHg (34-47) 07/29/19 09:24 ABG pO2 65 mmHg (83-108) L 07/29/19 09:24 ABG HCO3 24 mmol/L (22-28) 07/29/19 09:24 ABG Total CO2 22 mmol/L (22-29) 07/29/19 09:24 ABG O2 Saturation 92 % (94-98) L 07/29/19 09:24 ABG Base Excess -1.1 mmol/L (-3-3) 07/29/19 09:24 Oxygen Liter Flow Vt430/peep5/r18 L 07/28/19 07:18 FiO2 30 % 07/29/19 09:24 Sodium 143 mmol/L (136-145) 07/29/19 06:40 Potassium 3.6 mmol/L (3.5-5.1) 07/29/19 06:40 Chloride 111 mmol/L (98-107) H 07/29/19 06:40 Carbon Dioxide 24.5 mmol/L (21.0-32.0) 07/29/19 06:40 Anion Gap 7.5 mmol/L (3-11) 07/29/19 06:40 BUN 17 mg/dL (7-18) 07/29/19 06:40 Creatinine 1.15 mg/dL (0.70-1.30) 07/29/19 06:40 Estimated GFR/1.73 m2 >= 60.00 (mL/min/1.73m2) 07/29/19 06:40 Glucose 113 mg/dL (74-106) H D 07/29/19 06:40 Hemoglobin A1c 5.4 % (3.8-5.6) 07/29/19 06:40 Calcium 7.6 mg/dL (8.5-10.1) L 07/29/19 06:40 Phosphorus 3.0 mg/dL (2.6-4.7) 07/27/19 19:30 Magnesium 1.8 mg/dL (1.8-2.4) 07/29/19 06:40 Total Bilirubin 1.0 mg/dL (0.2-1.0) 07/28/19 05:45 AST 23 U/L (15-37) 07/28/19 05:45 ALT 21 U/L (16-63) 07/28/19 05:45 Alkaline Phosphatase 55 U/L (46-116) 07/28/19 05:45 Ammonia 47 umol/L (11-32) H 07/29/19 06:40 Creatine Kinase 65 U/L (39-308) 07/29/19 06:40 Troponin I < 0.05 ng/Ml (<0.06) 07/28/19 05:45 C-Reactive Protein 7.95 mg/dL (0.0-0.3) H 07/29/19 06:40 Total Protein 5.9 g/dL (6.4-8.2) L 07/28/19 05:45 Albumin 2.7 g/dL (3.4-5.0) L 07/28/19 05:45 Vitamin B12 238 pg/mL (193-986) 07/29/19 06:40 Folate 15.7 ng/mL (8.6-20.0) 07/29/19 06:40 Procalcitonin < 0.1 ng/mL 07/28/19 05:45 TSH 1.95 uIU/mL (0.36-3.74) 07/28/19 05:45 Urine Color Yellow (Yellow) 07/28/19 18:00 Urine Clarity Cloudy (Clear) 07/28/19 18:00 Urine pH 5.5 (5-8) 07/28/19 18:00 Ur Specific [place] 1.025 (1.005-1.025) 07/28/19 18:00 Urine Protein 100 mg/dL (Negative) H 07/28/19 18:00 Urine Ketones Negative mg/dL (Negative) 07/28/19 18:00 Urine Blood Large (Negative) H 07/28/19 18:00 Urine Nitrite Negative (Negative) 07/28/19 18:00 Urine Bilirubin Negative (Negative) 07/28/19 18:00 Urine Urobilinogen 0.2 EU/dL (Up TO 0.2) 07/28/19 18:00 Ur Leukocyte Esterase Trace (Negative) H 07/28/19 18:00 Urine RBC >50 HPF (0-2) H 07/28/19 18:00 Urine WBC 20-50 HPF (0-5) H 07/28/19 18:00 Ur Epithelial Cells Few HPF (Negative) 07/28/19 18:00 Urine Crystals Many uric acid HPF (Negative) 07/28/19 18:00 Urine Bacteria Not Applicable 07/28/19 18:00 Urine Casts Negative LPF (Negative) 07/28/19 18:00 Urine Mucus Negative (Negative) 07/28/19 18:00 Ur Culture Indicated? Yes 07/28/19 18:00 Urine Glucose Negative mg/dL (Negative) 07/28/19 18:00 Urine Opiates Screen Negative (Negative) 07/27/19 17:10 Urine Methadone Screen Negative (Negative) 07/27/19 17:10 Ur Barbiturates Screen Negative (Negative) 07/27/19 17:10 Ur Tricyclics Screen Negative (Negative) 07/27/19 17:10 Ur Amphetamines Screen Negative (Negative) 07/27/19 17:10 U Benzodiazepines Scrn Negative (Negative) 07/27/19 17:10 Urine Cocaine Screen Negative (Negative) 07/27/19 17:10 Ur THC Screen Negative (Negative) 07/27/19 17:10 Ethyl Alcohol < 3.0 mg/dL (<3) 07/27/19 16:28 Coronavirus (PCR) Negative (Negative) 07/28/19 10:45
--- NOTE | 2019-07-29 13:23 | DI.RAD_ITS ---
EXAM: XR PORTABLE CHEST AP POST LINE CLINICAL HISTORY: <assess position of ET tube> TECHNIQUE: 2D digital imaging was performed. COMPARISON: XR PORTABLE CHEST AP POST LINE from 07/28/2019 FINDINGS: Exam is limited by overlying leads and tubing. The lungs are not well inflated. LUNGS: Small bilateral pleural effusions unchanged. No overt pulmonary edema or focal consolidation. HEART: Mildly enlarged. MEDIASTINUM: Normal. OTHER FINDINGS: An endotracheal tube is seen projecting at the level of the clavicles. A nasogastric tube projects beneath the diaphragm. IMPRESSION: Satisfactory positioning nasogastric and endotracheal tubes. Small bilateral pleural effusions.. DATA REPOSITORY: RADIATION DOSE DELIVERED:
--- NOTE | 2019-07-29 15:57 | PDOC.CMPRO ---
- If Service Date Differs Date of service: 07/29/19 Time of Service: 16:03 Care Management Progress Note S/O: Rick continues to be intubated and sedated under ICU level of care. Per report, the provider will continue daily sedation vacation until he can be safely extubated. CM spoke with Mandy, his girlfriend multiple times today, updating her on his condition. She requested a face time/phone conversation, but due to him not being conscious or able to consent, we will wait until he is extubated and awake for a video chat. She is agreeable to the plan. CM will contact her tomorrow to update her, as requested. His Covid 19 results arrived today, which are negative, so he has been removed from precautions. CM will continue to follow. A: Rick is a 73 year old male admitted to [facility] on 07/27/19 with Alcohol withdrawal seizure. P: Rick continues to be monitored at ICU level of care. Anticipate he will return home when medically cleared. Further evaluations will be made to determine discharge needs. Anticipate he will be driven home by family via private vehicle. CM will continue to follow and support discharge planning considerations.
--- NOTE | 2019-07-29 18:05 | PT.INTREAT ---
Date of service: 07/29/19 Time of Service: 18:05 PT Notes Visit Reasons: ALCOHOL WITHDRAWAL SEIZURE Patient remains intubated and on sedation. Will continue to determine patient readiness for skilled services tomorrow. Thank you very much for this referral. Indiana Rodriguez PT, DPT, [facility]
[2019-07-29] MEDS: MIDAZOLAM 50 MG in Normal Saline 90 ML 10.1 MG IV (19:30)
[2019-07-29] MEDS: Pantoprazole 40 MG VIAL IVP (21:14)
[2019-07-29] MEDS: Enoxaparin 40 MG/0.4 ML SYR SC (21:14)
[2019-07-29] MEDS: Furosemide 40 MG/4 ML VIAL IVP (21:26)
[2019-07-29] MEDS: Potassium Chloride Liquid 20 MEQ PKT 40 MEQ NG (21:26)
[2019-07-29] MEDS: POTASSIUM CHLORIDE/0.9% NACL 1,000 ML 85 MEQ IV (22:26)
--- NOTE | 2019-07-29 23:53 | NUR.NOTE ---
2199-patient had been medicated with 40mg iv lasix and still no urine in the hancock. tubing has some brown sediment in it. hancock pushed in a little and urine began to spray around the hancock and onto the patient and the bed. 2244-pt cleaned with the help of 3 nurses, linen changed and new hancock placed.
[2019-07-30] VITALS (111 sets, daily range): BP systolic 89–170; BP diastolic 56–102; PULSE 44–83; RESP 10–24; TEMP 35.5–37.2; O2SAT 84–97
--- NOTE | 2019-07-30 | DI.US_ITS ---
EXAM: US ABDOMEN LIMITED CLINICAL HISTORY: RUQ: hyperammonemia, ?cirrhosis TECHNIQUE: Ultrasound abdomen performed using standard protocol. COMPARISON: No exams were available for comparison FINDINGS: ABDOMINAL AORTA AND IVC: Visualized portions normal caliber. PANCREAS: Normal where visualized. LIVER: Increased echogenicity of the liver suggesting fatty infiltration. There is limited evaluatio n due to patient's decreased ability to cooperate. Hepatopedal flow in the Portal Vein. GALLBLADDER: No evidence of cholelithiasis. No evidence of wall thickening. No pericholecystic fluid identified. BILIARY SYSTEM: Common bile duct measures 2.8 mm. No intrahepatic biliary ductal dilation. EDWARD'S SIGN: Negative. KIDNEYS: The right kidney is unremarkable. No evidence of renal calculi. No evidence of hydronephros is. No renal mass or cyst identified. ASCITES: None seen. IMPRESSION: 1. Examination limited due to patient's is decreased ability to cooperate. 2. Hepatic steatosis. DATA REPOSITORY:
[2019-07-30] MEDS: Normal Saline Flush 10 ML SYR IVP ×4 (02:58→20:00)
[2019-07-30] MEDS: Refresh PLUS Eye Drops 0.4ml 1 EACH OU ×4 (02:59→19:59)
[2019-07-30] MEDS: PIPERACILLIN/TAZO 4.5 GM in Normal Saline 100 ML IVPB ×3 (02:59→17:44)
[2019-07-30] MEDS: fentaNYL 1,000 MCG in Normal Saline 80 ML 20.2 MCG IV ×5 (03:27→20:38)
[2019-07-30] MEDS: MIDAZOLAM 50 MG in Normal Saline 90 ML 10.1 MG IV (05:28)
[2019-07-30 06:46] LABS: Abs Immature Grans 0.02 k/cumm (0.0-0.09); Absolute Basophil Count 0.03 k/cumm (0.0-0.2); Absolute Eosinophil Count 0.14 k/cumm (0.0-0.7); Absolute Lymphocyte Count 1.26 k/cumm (1.2-3.4); Absolute Monocyte Count 0.58 k/cumm (0.11-0.7); Absolute Neutrophil Count 3.19 k/cumm (1.2-6.7); Basophils % 0.6; Eosinophils % 2.7; HCT 39.3 % (40.0-50.0); HGB 12.6 g/dL (13.5-17.5); Immature Grans % 0.4 %; Lymphocytes % 24.1; Mean Corp. HGB Concentration 32.1 g/dL (32.0-36.0); Mean Corpuscular Hemoglobin 31.4 pg (27.0-33.0); Mean Platelet Volume 9.9 fL (8.0-11.0); Monocytes % 11.1; Neutrophils % 61.1; Platelet Count 204 x1000/uL (130-400); RBC 4.01 m/cumm (4.50-6.00); RBC Distribution Width 15.1 % (11.8-14.1); White Blood Cell Count 5.22 k/cumm (4.4-10.8)
[2019-07-30 06:58] LABS: Anion Gap 7.4 mmol/L (3-11); BUN 16 mg/dL (7-18); CO2 25.6 mmol/L (21.0-32.0); Calcium 7.6 mg/dL (8.5-10.1); Chloride 110 mmol/L (98-107); Estimated GFR 59.68 (mL/min/1.73m2); Glucose 91 mg/dL (74-106); Magnesium 1.5 mg/dL (1.8-2.4); Sodium 143 mmol/L (136-145)
[2019-07-30] MEDS: Cyanocobalamin 500 MCG TAB 1000 MCG NG (07:36)
[2019-07-30] MEDS: Lactulose 20 GM/30 ML CUP NG ×2 (07:36→19:59)
[2019-07-30] MEDS: Normal Saline 500 ML IV (07:46)
[2019-07-30 08:03] LABS: BE -0.4 mmol/L (-3-3); HCO3 25 mmol/L (22-28); pCO2 40 mmHg (34-47); pH 7.39 (7.35-7.45); pO2 81 mmHg (83-108); sO2 95 % (94-98); tCO2 22 mmol/L (22-29)
[2019-07-30 08:05] LABS: FIO2 60 %; Site Right Radial
[2019-07-30] MEDS: Budesonide/Formoterol 160/4.5 6 GM 60 PUFF INH IH ×2 (08:16→19:59)
[2019-07-30] MEDS: MAGNESIUM SULFATE 4 GM/100 ML BAG IVPB (08:35)
[2019-07-30] MEDS: MULTIVITAMIN 10 ML, THIAMINE 100 MG, FOLIC ACID 1 MG in DEXTROSE 5%-0.45% SALINE 1,000 ML 150 ML IV (08:35)
--- NOTE | 2019-07-30 09:03 | NT_ITS ---
Date of service: 07/30/19 Time of Service: 09:03 PT Notes Visit Reasons: ALCOHOL WITHDRAWAL SEIZURE Conversation with Nurse Lopez regarding patient status and readiness for skilled PT was made. She states that patient is being assessed for response to sedation vacation and that he continues to be unable to follow commands. She further states that she has been doing passive range of motion exercises during patient care activities and regular positional changes as part of ICU nursing man agement. Patient is not yet appropriate for skilled PT services at this time. Will wait on another referral from hospitalist if patient level of awareness as well cognitive status re-stabilizes. Thank you very much for this referral. Indiana Rodriguez PT, DPT, [facility] at [facility] Thank you very much for this referral.
--- NOTE | 2019-07-30 09:32 | CMPROGNOTE_ITS ---
- If Service Date Differs Date of service: 07/30/19 Time of Service: 09:32 Care Management Progress Note S/O: Rick continues to be intubated and monitored at ICU level of care. He was on sedation vacation this morning when CM met with him. His primary RN was able to ask questions, to which he could respond by nodding his head yes or no. He was asked if he is comfortable, which he answered with an affirmative nod. He was also asked if he would want to accept a phone call at this time, which he nodded 'no' to. CM called Shira, his girlfriend, with an update regarding his plan. Per report, d/t the possibility that he may still be actively withdrawing, he will not be extubated today. This course of treatment will be considered tomorrow. CM directed Shira to his RN to answer clinical questions that she had regarding his care. CM will continue to follow. A: Rick is a 73 year old male admitted to [facility] on 07/27/19 with Alcohol withdrawal seizure. P: Rick continues to be monitored at ICU level of care. Anticipate he will return home when medically cleared. Further evaluations will be made to determine discharge needs. Anticipate he will be driven home by family via private vehicle. CM will continue to follow and support discharge planning considerations.
[2019-07-30] MEDS: Furosemide 20 MG/2 ML VIAL 10 MG IVP (09:46)
--- NOTE | 2019-07-30 10:17 | W.PM.PROGNOT ---
Date of Service Date of service: 07/30/19 Time of Service: :17 Assessment and Plan Assessment and plan (1) Alcohol withdrawal seizure with complication: Status: Acute Assessment and plan: EEG with generalized encephalopathy and no focal activity. Fannie d/c'ed. Did well with sedation vacation today. Continue banana bag daily. Continue b12 repletion. (2) Acute respiratory failure: Status: Acute Assessment and plan: Intubated in ED for airway protection during seizure. Worsening overnight likely related to iatrogenic fluid overload. As the patient is on banana bag, will require periodic doses of lasix. Patient has had high residuals with TF's - that is why I cannot rely for him to get his vitamins/thiamine through TF. Continue to monitor daily ABG's. COVID negative. Qualifiers: Respiratory failure complication: unspecified whether with hypoxia or hypercapnia Qualified Code(s): J96.00 - Acute respiratory failure, unspecified whether with hypoxia or hypercapnia (3) Hypotension: Status: Acute Assessment and plan: Due to sedation. At this point, no longer able to tolerate IVF. Has not required pressors in >48 hrs. Having said that, cannot tolerate any more IVF and continues to require sedation - therefore, will keep pressors ordered prn for MAP<65 D/c MIVF. Qualifiers: Hypotension type: unspecified hypotension type Qualified Code(s): I95.9 - Hypotension, unspecified (4) Aspiration pneumonia: Status: Suspected Assessment and plan: Continue zosyn. Qualifiers: Aspiration pneumonia type: unspecified Laterality: left Lung location: lower lobe of lung Qualified Code(s): J69.0 - Pneumonitis due to inhalation of food and vomit (5) DVT prophylaxis: Status: Acute Assessment and plan: SC lovenox (6) Discharge planning issues: Status: Acute Assessment and plan: Full code Continues to require ICU. Continues to require soft upper limb restraints to prevent self-extubation. Total critical Care time 45 minutes. Subjective Subjective Interval history since last seen: Mr Crystal desaturated on the vent last night, requiring a dose of lasix. This morning, arousable during sedation vacation, but did not do well with weaning trial. Sedation is being titrated back up. Following commands - squeezes my hand, opens eyes, but not able to answer questions. Exam Narrative Exam Narrative: General: Middle-aged male, intubated, arousable, opens eyes and squeezes hand on command HEENT: opens eyes, not tracking; scleral edema Heart: RRR, no m/r/g Lungs: CTAB Abdomen: soft, nondistended Extremities: no e/c/c BLE's Objective Objective Clinical Data: Abnormal lab results 07/30/19 07/30/19 07/30/19 Range/Units 06:15 06:15 07:56 RBC 4.01 L (4.50-6.00) m/cumm Hgb 12.6 L (13.5-17.5) g/dL Hct 39.3 L (40.0-50.0) % MCV 98.0 H (80-95) fL RDW 15.1 H (11.8-14.1) % ABG pO2 81 L (83-108) mmHg Chloride 110 H (98-107) mmol/L Calcium 7.6 L (8.5-10.1) mg/dL Magnesium 1.5 L (1.8-2.4) mg/dL Vital Signs Temperature 36 C L 07/30/19 08:55 Temperature Source Tympanic 07/30/19 08:55 Pulse 52 L 07/30/19 08:55 Pulse 50 L 07/30/19 05:15 Respiratory Rate 14 07/30/19 08:55 Respiratory Effort 07/30/19 08:55 Respiratory Depth Normal 07/30/19 08:55 Respiratory Pattern Normal 07/30/19 08:55 Blood Pressure 96/61 L 07/30/19 08:55 Blood Pressure Mean 72 07/30/19 08:55 Blood Pressure Position Supine 07/30/19 00:06 Pulse Oximetry 94 L 07/30/19 08:55 Respiratory End-tidal CO2 29 07/30/19 08:20 Oxygen Delivery Method Mechanical Ventilator 07/30/19 08:55 Oxygen Flow Rate 0 07/30/19 08:55 Fraction of Inspired Oxygen (FIO2) 60 07/30/19 08:55 Pain Level 0 07/30/19 08:55 Intake & Output 07/29/19 07/29/19 07/30/19 11:59 23:59 11:59 Intake Total 2874.963 / 5420.983 2546.020 / 5420.983 1471.686 / 1471.686 Output Total 705 / 1529 824 / 1529 2165 / 2165 Balance 2169.963 / 3891.983 1722.020 / 3891.983 -693.314 / -693.314 Weight 116.8 kg Intake: IV 2824.963 / 5370.983 2546.020 / 5370.983 1471.686 / 1471.686 Intake, Tube Feeding Amount 50 / 50 Output: Urine 525 / 875 350 / 875 2150 / 2150 Output, Residual 180 / 654 474 / 654 15 / 15 Other: Urine Color Yellow [place] Light Ranjeet Urine Appearance Cloudy Cloudy Clear Sediment Sediment Comment hancock hancock to gravity with medium ranjeet urine in it output prior to lasix Gastric Occult Blood Right Nare Negative Laboratory Results WBC 5.22 k/cumm (4.4-10.8) 07/30/19 06:15 RBC 4.01 m/cumm (4.50-6.00) L 07/30/19 06:15 Hgb 12.6 g/dL (13.5-17.5) L 07/30/19 06:15 Hct 39.3 % (40.0-50.0) L 07/30/19 06:15 MCV 98.0 fL (80-95) H 07/30/19 06:15 MCH 31.4 pg (27.0-33.0) 07/30/19 06:15 MCHC 32.1 g/dL (32.0-36.0) 07/30/19 06:15 RDW 15.1 % (11.8-14.1) H 07/30/19 06:15 Plt Count 204 x1000/uL (130-400) 07/30/19 06:15 MPV 9.9 fL (8.0-11.0) 07/30/19 06:15 Immature Gran % 0.4 % 07/30/19 06:15 Neutrophils % 61.1 07/30/19 06:15 Band Neutrophils % 2.0 % 07/27/19 16:28 Lymphocytes % 24.1 07/30/19 06:15 Atypical Lymphs % 5 07/28/19 05:45 Monocytes % 11.1 07/30/19 06:15 Eosinophils % 2.7 07/30/19 06:15 Basophils % 0.6 07/30/19 06:15 Absolute Neutrophils 3.19 k/cumm (1.2-6.7) 07/30/19 06:15 Absolute Lymphocytes 1.26 k/cumm (1.2-3.4) 07/30/19 06:15 Absolute Monocytes 0.58 k/cumm (0.11-0.7) 07/30/19 06:15 Absolute Eosinophils 0.14 k/cumm (0.0-0.7) 07/30/19 06:15 Absolute Basophils 0.03 k/cumm (0.0-0.2) 07/30/19 06:15 Nucleated RBCs 1 /100WBC 07/27/19 16:28 Differential Comment Manual differential 07/28/19 05:45 RBC Morphology Normal 07/28/19 05:45 Macrocytosis 1+ 07/27/19 16:28 ESR 12 mm/hr (1-20) 07/28/19 05:45 PT 10.8 sec (9.3-11.0) 07/28/19 05:45 INR 1.1 (0.9-1.1) 07/28/19 05:45 APTT 23.1 sec (21.0-31.4) 07/27/19 16:28 ABG Sample Site Right radial 07/30/19 07:56 ABG pH 7.39 (7.35-7.45) 07/30/19 07:56 ABG pCO2 40 mmHg (34-47) 07/30/19 07:56 ABG pO2 81 mmHg (83-108) L 07/30/19 07:56 ABG HCO3 25 mmol/L (22-28) 07/30/19 07:56 ABG Total CO2 22 mmol/L (22-29) 07/30/19 07:56 ABG O2 Saturation 95 % (94-98) 07/30/19 07:56 ABG Base Excess -0.4 mmol/L (-3-3) 07/30/19 07:56 Oxygen Liter Flow Cancelled 07/29/19 07:55 FiO2 60 % 07/30/19 07:56 Sodium 143 mmol/L (136-145) 07/30/19 06:15 Potassium 4.0 mmol/L (3.5-5.1) 07/30/19 06:15 Chloride 110 mmol/L (98-107) H 07/30/19 06:15 Carbon Dioxide 25.6 mmol/L (21.0-32.0) 07/30/19 06:15 Anion Gap 7.4 mmol/L (3-11) 07/30/19 06:15 BUN 16 mg/dL (7-18) 07/30/19 06:15 Creatinine 1.20 mg/dL (0.70-1.30) 07/30/19 06:15 Estimated GFR/1.73 m2 59.68 (mL/min/1.73m2) 07/30/19 06:15 Glucose 91 mg/dL (74-106) 07/30/19 06:15 Hemoglobin A1c 5.4 % (3.8-5.6) 07/29/19 06:40 Calcium 7.6 mg/dL (8.5-10.1) L 07/30/19 06:15 Phosphorus 3.0 mg/dL (2.6-4.7) 07/27/19 19:30 Magnesium 1.5 mg/dL (1.8-2.4) L 07/30/19 06:15 Total Bilirubin 1.0 mg/dL (0.2-1.0) 07/28/19 05:45 AST 23 U/L (15-37) 07/28/19 05:45 ALT 21 U/L (16-63) 07/28/19 05:45 Alkaline Phosphatase 55 U/L (46-116) 07/28/19 05:45 Ammonia 47 umol/L (11-32) H 07/29/19 06:40 Creatine Kinase 65 U/L (39-308) 07/29/19 06:40 Troponin I < 0.05 ng/Ml (<0.06) 07/28/19 05:45 C-Reactive Protein 7.95 mg/dL (0.0-0.3) H 07/29/19 06:40 Total Protein 5.9 g/dL (6.4-8.2) L 07/28/19 05:45 Albumin 2.7 g/dL (3.4-5.0) L 07/28/19 05:45 Vitamin B12 238 pg/mL (193-986) 07/29/19 06:40 Folate 15.7 ng/mL (8.6-20.0) 07/29/19 06:40 Procalcitonin < 0.1 ng/mL 07/28/19 05:45 TSH 1.95 uIU/mL (0.36-3.74) 07/28/19 05:45 Urine Color Yellow (Yellow) 07/28/19 18:00 Urine Clarity Cloudy (Clear) 07/28/19 18:00 Urine pH 5.5 (5-8) 07/28/19 18:00 Ur Specific [place] 1.025 (1.005-1.025) 07/28/19 18:00 Urine Protein 100 mg/dL (Negative) H 07/28/19 18:00 Urine Ketones Negative mg/dL (Negative) 07/28/19 18:00 Urine Blood Large (Negative) H 07/28/19 18:00 Urine Nitrite Negative (Negative) 07/28/19 18:00 Urine Bilirubin Negative (Negative) 07/28/19 18:00 Urine Urobilinogen 0.2 EU/dL (Up TO 0.2) 07/28/19 18:00 Ur Leukocyte Esterase Trace (Negative) H 07/28/19 18:00 Urine RBC >50 HPF (0-2) H 07/28/19 18:00 Urine WBC 20-50 HPF (0-5) H 07/28/19 18:00 Ur Epithelial Cells Few HPF (Negative) 07/28/19 18:00 Urine Crystals Many uric acid HPF (Negative) 07/28/19 18:00 Urine Bacteria Not Applicable 07/28/19 18:00 Urine Casts Negative LPF (Negative) 07/28/19 18:00 Urine Mucus Negative (Negative) 07/28/19 18:00 Ur Culture Indicated? Yes 07/28/19 18:00 Urine Glucose Negative mg/dL (Negative) 07/28/19 18:00 Urine Opiates Screen Negative (Negative) 07/27/19 17:10 Urine Methadone Screen Negative (Negative) 07/27/19 17:10 Ur Barbiturates Screen Negative (Negative) 07/27/19 17:10 Ur Tricyclics Screen Negative (Negative) 07/27/19 17:10 Ur Amphetamines Screen Negative (Negative) 07/27/19 17:10 U Benzodiazepines Scrn Negative (Negative) 07/27/19 17:10 Urine Cocaine Screen Negative (Negative) 07/27/19 17:10 Ur THC Screen Negative (Negative) 07/27/19 17:10 Ethyl Alcohol < 3.0 mg/dL (<3) 07/27/19 16:28 Coronavirus (PCR) Negative (Negative) 07/28/19 10:45 Path Cons Comment 07/27/19 16:28
--- NOTE | 2019-07-30 14:28 | W.NUTRFU ---
Date of service: 07/30/19 Time of Service: 14:28 Nutritional Follow up NOTE: Nursing reports high residuals on current tube feeding regime. Suspect delayed gastric emptying due to narcotics. Will monitor and make recommendations if unable to tolerate tube feeding in next 24 hours. Labs mostly wnl. Weight appears to have increased >25lbs since admission, request reweigh. Time Spent in Nutritional Counseling and Treatment: 0 time spent face to face
[2019-07-30] MEDS: Pantoprazole 40 MG VIAL IVP (22:59)
[2019-07-30] MEDS: Enoxaparin 40 MG/0.4 ML SYR SC (22:59)
[2019-07-30] MEDS: MIDAZOLAM 50 MG in Normal Saline 90 ML 5.05 MG IV (23:03)
[2019-07-31] VITALS (60 sets, daily range): BP systolic 93–174; BP diastolic 64–101; PULSE 45–90; RESP 9–37; TEMP 35.5–36.6; O2SAT 92–98
[2019-07-31] MEDS: PIPERACILLIN/TAZO 4.5 GM in Normal Saline 100 ML IVPB ×2 (00:27→09:40)
[2019-07-31] MEDS: fentaNYL 1,000 MCG in Normal Saline 80 ML 20.2 MCG IV (00:32)
[2019-07-31] MEDS: Refresh PLUS Eye Drops 0.4ml 1 EACH OU ×4 (04:19→20:25)
[2019-07-31] MEDS: fentaNYL 1,000 MCG in Normal Saline 80 ML 30.3 MCG IV ×2 (04:19→08:06)
[2019-07-31 06:57] LABS: HGB 12.3 g/dL (13.5-17.5); Mean Corp. HGB Concentration 32.4 g/dL (32.0-36.0); Mean Corpuscular Hemoglobin 31.6 pg (27.0-33.0); Mean Corpuscular Volume 97.7 fL (80-95); Mean Platelet Volume 10.1 fL (8.0-11.0); RBC 3.89 m/cumm (4.50-6.00); RBC Distribution Width 14.6 % (11.8-14.1); White Blood Cell Count 5.29 k/cumm (4.4-10.8)
[2019-07-31 07:05] LABS: Anion Gap 9.1 mmol/L (3-11); BUN 14 mg/dL (7-18); CO2 24.9 mmol/L (21.0-32.0); Chloride 107 mmol/L (98-107); Glucose 96 mg/dL (74-106); Magnesium 1.6 mg/dL (1.8-2.4); Potassium 3.3 mmol/L (3.5-5.1); Sodium 141 mmol/L (136-145)
[2019-07-31 07:24] LABS: Absolute Eosinophil Count 0.05 k/cumm (0.0-0.7); Absolute Lymphocyte Count 1.32 k/cumm (1.2-3.4); Absolute Monocyte Count 0.42 k/cumm (0.11-0.7); Absolute Neutrophil Count 3.49 k/cumm (1.2-6.7); Atypical Lymphocytes % 4; Diff Comment Manual Differential; RBC Morphology Normal
[2019-07-31 07:25] LABS: Platelet Count 204 x1000/uL (130-400)
[2019-07-31] MEDS: Budesonide/Formoterol 160/4.5 6 GM 60 PUFF INH IH ×2 (07:30→20:26)
[2019-07-31] MEDS: Cyanocobalamin 500 MCG TAB 1000 MCG NG (07:53)
[2019-07-31] MEDS: Lactulose 20 GM/30 ML CUP NG ×2 (07:53→20:24)
--- NOTE | 2019-07-31 08:24 | PDOC.CMPRO ---
- If Service Date Differs Date of service: 07/31/19 Time of Service: 08:25 Care Management Progress Note S/O: Rick was presented at multidisciplinary rounds, CM reviewed clinical chart. Plan medications being weaned, he will have a weaning trial with possible extubation today. Rick will need referral for inpatient PT and OT once he is able to particpate. CM will continue to assess for discharge needs and provide update to family. A: Rick is a 73 year old male admitted to [facility] on 07/27/19 with Alcohol withdrawal seizure, and aspiration pneumonia currently intubated and being treated with IV abx. P: Rick continues to be monitored at ICU level of care. Anticipate he will return home when medically cleared. Further evaluations will be made to determine discharge needs. Anticipate he will be driven home by family via private vehicle. CM will continue to follow and support discharge planning considerations.
[2019-07-31] MEDS: MULTIVITAMIN 10 ML, THIAMINE 100 MG, FOLIC ACID 1 MG in DEXTROSE 5%-0.45% SALINE 1,000 ML 150 ML IV (09:03)
[2019-07-31] MEDS: Normal Saline Flush 10 ML SYR IVP ×2 (10:35→20:25)
--- NOTE | 2019-07-31 13:51 | PGE_ITS ---
Date of Service Date of service: 07/31/19 Time of Service: 13:52 Assessment and Plan Assessment and plan (1) Alcohol withdrawal: Status: Acute Assessment and plan: Patient presented with presumed alcohol withdrawal and alcohol withdrawal seizure. He was intubated to protect his airway. He is extubated today. Thus far he does not exhibit significant alcohol withdrawal symptoms. We will continue PRN lorazepam as needed though currently he is quite sedated from the Versed infusion used while intubated. Continue CIWA scoring. (2) Aspiration pneumonia: Status: Suspected Assessment and plan: Lungs are clear. He has had 4 days of Zosyn. No fever, no white blood cell count. Will DC the Zosyn and monitor white count and vitals closely. Qualifiers: Aspiration pneumonia type: unspecified Laterality: left Lung location: lower lobe of lung Qualified Code(s): J69.0 - Pneumonitis due to inhalation of food and vomit (3) Acute respiratory failure: Status: Acute Assessment and plan: He was intubated to protect his airway because of the seizure. He successfully extubated and is managed with nasal cannula oxygen supplementation which is being titrated down. There does not appear to be indication for mechanical ventilation at this time. Qualifiers: Respiratory failure complication: unspecified whether with hypoxia or hypercapnia Qualified Code(s): J96.00 - Acute respiratory failure, unspecified whether with hypoxia or hypercapnia (4) Discharge planning issues: Status: Acute Assessment and plan: Hospital day 5. He is extubated today. Continue to monitor in the ICU over the next 24 hours. Subjective Subjective Interval history since last seen: Patient was extubated today. He tolerated a weaning trial without any difficulty. Post extubation he has been groggy and hoarse. He has not been hungry or wanting p.o. He vomited x1. He has had shallow rapid respirations. His oxygen saturation has been fine on 2 L. He says he is not short of breath. He is not exhibiting overt signs of alcohol withdrawal at this time. Exam Narrative Exam Narrative: On exam he sitting up in the chair. He is mildly diaphoretic. His eyes are bloodshot. He makes good eye contact but is largely nonverbal. He appears to understand questions and commands. He is moving upper and lower extremities. His heart sounds are regular. His lung sounds were clear and dry bilaterally. His abdomen is quite rotund but overall soft and nontender to palpation. Objective Objective Clinical Data: Abnormal lab results 07/31/19 07/31/19 Range/Units 06:05 06:05 RBC 3.89 L (4.50-6.00) m/cumm Hgb 12.3 L (13.5-17.5) g/dL Hct 38.0 L (40.0-50.0) % MCV 97.7 H (80-95) fL RDW 14.6 H (11.8-14.1) % Potassium 3.3 L (3.5-5.1) mmol/L Calcium 8.0 L (8.5-10.1) mg/dL Magnesium 1.6 L (1.8-2.4) mg/dL Vital Signs Temperature 36.1 C L 07/31/19 12:28 Temperature Source Tympanic 07/31/19 12:28 Pulse 86 07/31/19 13:01 Pulse 87 07/31/19 13:01 Respiratory Rate 16 07/31/19 13:01 Respiratory Effort Non-Labored 07/31/19 12:28 Respiratory Depth Normal 07/31/19 12:28 Respiratory Pattern Normal 07/31/19 12:28 Blood Pressure 113/84 07/31/19 13:01 Blood Pressure Mean 90 07/31/19 13:01 Blood Pressure Position Sitting 07/31/19 12:28 Pulse Oximetry 96 07/31/19 13:42 Respiratory End-tidal CO2 36 07/31/19 10:01 Oxygen Delivery Method Nasal Cannula 07/31/19 13:42 Oxygen Flow Rate 4 07/31/19 13:42 Fraction of Inspired Oxygen (FIO2) 30 07/31/19 10:15 Pain Level 0 07/31/19 12:28 Intake & Output 07/30/19 07/31/19 07/31/19 23:59 11:59 23:59 Intake Total 1524.000 / 2995.686 429.750 / 429.750 Output Total 1640 / 3805 1060 / 1260 200 / 1260 Balance -116.000 / -809.314 -630.250 / -830.250 -200 / -830.250 Intake: IV 1524.000 / 2995.686 429.750 / 429.750 Intake, Tube Feeding Amount 0 / 0 0 / 0 Output: Gastric Drainage 110 / 110 150 / 150 Right Nare 110 / 110 150 / 150 Urine 1300 / 3450 650 / 850 200 / 850 Output, Residual 230 / 245 260 / 260 Other: Urine Color Light Ranjeet Dark Ranjeet Dark Ranjeet Urine Appearance Clear Clear Clear Sediment Sediment Clots Comment draining ranjeet colored urine. Jimenez Catheter intact and draining clear dark ranjeet urine. [place] Catheter intact and draining clear dark ranjeet uri ne. Gastric Occult Blood Right Nare Negative Negative Laboratory Results WBC 5.29 k/cumm (4.4-10.8) 07/31/19 06:05 RBC 3.89 m/cumm (4.50-6.00) L 07/31/19 06:05 Hgb 12.3 g/dL (13.5-17.5) L 07/31/19 06:05 Hct 38.0 % (40.0-50.0) L 07/31/19 06:05 MCV 97.7 fL (80-95) H 07/31/19 06:05 MCH 31.6 pg (27.0-33.0) 07/31/19 06:05 MCHC 32.4 g/dL (32.0-36.0) 07/31/19 06:05 RDW 14.6 % (11.8-14.1) H 07/31/19 06:05 Plt Count 204 x1000/uL (130-400) 07/31/19 06:05 MPV 10.1 fL (8.0-11.0) 07/31/19 06:05 Immature Gran % 0.0 % 07/31/19 06:05 Neutrophils % 65.0 07/31/19 06:05 Band Neutrophils % 1.0 % 07/31/19 06:05 Lymphocytes % 21.0 07/31/19 06:05 Atypical Lymphs % 4 07/31/19 06:05 Monocytes % 8.0 07/31/19 06:05 Eosinophils % 1.0 07/31/19 06:05 Basophils % 0.0 07/31/19 06:05 Absolute Neutrophils 3.49 k/cumm (1.2-6.7) 07/31/19 06:05 Absolute Lymphocytes 1.32 k/cumm (1.2-3.4) 07/31/19 06:05 Absolute Monocytes 0.42 k/cumm (0.11-0.7) 07/31/19 06:05 Absolute Eosinophils 0.05 k/cumm (0.0-0.7) 07/31/19 06:05 Absolute Basophils 0.00 k/cumm (0.0-0.2) 07/31/19 06:05 Nucleated RBCs 1 /100WBC 07/27/19 16:28 Differential Comment Manual differential 07/31/19 06:05 RBC Morphology Normal 07/31/19 06:05 Macrocytosis 1+ 07/27/19 16:28 ESR 12 mm/hr (1-20) 07/28/19 05:45 PT 10.8 sec (9.3-11.0) 07/28/19 05:45 INR 1.1 (0.9-1.1) 07/28/19 05:45 APTT 23.1 sec (21.0-31.4) 07/27/19 16:28 ABG Sample Site Right radial 07/30/19 07:56 ABG pH 7.39 (7.35-7.45) 07/30/19 07:56 ABG pCO2 40 mmHg (34-47) 07/30/19 07:56 ABG pO2 81 mmHg (83-108) L 07/30/19 07:56 ABG HCO3 25 mmol/L (22-28) 07/30/19 07:56 ABG Total CO2 22 mmol/L (22-29) 07/30/19 07:56 ABG O2 Saturation 95 % (94-98) 07/30/19 07:56 ABG Base Excess -0.4 mmol/L (-3-3) 07/30/19 07:56 Oxygen Liter Flow Cancelled 07/29/19 07:55 FiO2 60 % 07/30/19 07:56 Sodium 141 mmol/L (136-145) 07/31/19 06:05 Potassium 3.3 mmol/L (3.5-5.1) L 07/31/19 06:05 Chloride 107 mmol/L (98-107) 07/31/19 06:05 Carbon Dioxide 24.9 mmol/L (21.0-32.0) 07/31/19 06:05 Anion Gap 9.1 mmol/L (3-11) 07/31/19 06:05 BUN 14 mg/dL (7-18) 07/31/19 06:05 Creatinine 1.00 mg/dL (0.70-1.30) 07/31/19 06:05 Estimated GFR/1.73 m2 >= 60.00 (mL/min/1.73m2) 07/31/19 06:05 Glucose 96 mg/dL (74-106) 07/31/19 06:05 Hemoglobin A1c 5.4 % (3.8-5.6) 07/29/19 06:40 Calcium 8.0 mg/dL (8.5-10.1) L 07/31/19 06:05 Phosphorus 3.0 mg/dL (2.6-4.7) 07/27/19 19:30 Magnesium 1.6 mg/dL (1.8-2.4) L 07/31/19 06:05 Total Bilirubin 1.0 mg/dL (0.2-1.0) 07/28/19 05:45 AST 23 U/L (15-37) 07/28/19 05:45 ALT 21 U/L (16-63) 07/28/19 05:45 Alkaline Phosphatase 55 U/L (46-116) 07/28/19 05:45 Ammonia 47 umol/L (11-32) H 07/29/19 06:40 Creatine Kinase 65 U/L (39-308) 07/29/19 06:40 Troponin I < 0.05 ng/Ml (<0.06) 07/28/19 05:45 C-Reactive Protein 7.95 mg/dL (0.0-0.3) H 07/29/19 06:40 Total Protein 5.9 g/dL (6.4-8.2) L 07/28/19 05:45 Albumin 2.7 g/dL (3.4-5.0) L 07/28/19 05:45 Vitamin B12 238 pg/mL (193-986) 07/29/19 06:40 Folate 15.7 ng/mL (8.6-20.0) 07/29/19 06:40 Procalcitonin < 0.1 ng/mL 07/28/19 05:45 TSH 1.95 uIU/mL (0.36-3.74) 07/28/19 05:45 Urine Color Yellow (Yellow) 07/28/19 18:00 Urine Clarity Cloudy (Clear) 07/28/19 18:00 Urine pH 5.5 (5-8) 07/28/19 18:00 Ur Specific [place] 1.025 (1.005-1.025) 07/28/19 18:00 Urine Protein 100 mg/dL (Negative) H 07/28/19 18:00 Urine Ketones Negative mg/dL (Negative) 07/28/19 18:00 Urine Blood Large (Negative) H 07/28/19 18:00 Urine Nitrite Negative (Negative) 07/28/19 18:00 Urine Bilirubin Negative (Negative) 07/28/19 18:00 Urine Urobilinogen 0.2 EU/dL (Up TO 0.2) 07/28/19 18:00 Ur Leukocyte Esterase Trace (Negative) H 07/28/19 18:00 Urine RBC >50 HPF (0-2) H 07/28/19 18:00 Urine WBC 20-50 HPF (0-5) H 07/28/19 18:00 Ur Epithelial Cells Few HPF (Negative) 07/28/19 18:00 Urine Crystals Many uric acid HPF (Negative) 07/28/19 18:00 Urine Bacteria Not Applicable 07/28/19 18:00 Urine Casts Negative LPF (Negative) 07/28/19 18:00 Urine Mucus Negative (Negative) 07/28/19 18:00 Ur Culture Indicated? Yes 07/28/19 18:00 Urine Glucose Negative mg/dL (Negative) 07/28/19 18:00 Urine Opiates Screen Negative (Negative) 07/27/19 17:10 Urine Methadone Screen Negative (Negative) 07/27/19 17:10 Ur Barbiturates Screen Negative (Negative) 07/27/19 17:10 Ur Tricyclics Screen Negative (Negative) 07/27/19 17:10 Ur Amphetamines Screen Negative (Negative) 07/27/19 17:10 U Benzodiazepines Scrn Negative (Negative) 07/27/19 17:10 Urine Cocaine Screen Negative (Negative) 07/27/19 17:10 Ur THC Screen Negative (Negative) 07/27/19 17:10 Ethyl Alcohol < 3.0 mg/dL (<3) 07/27/19 16:28 Coronavirus (PCR) Negative (Negative) 07/28/19 10:45 Path Cons Comment 07/27/19 16:28
[2019-07-31] MEDS: POTASSIUM CHLORIDE/0.9% NACL 1,000 ML 80 MEQ IV ×2 (14:42→15:25)
[2019-07-31] MEDS: Enoxaparin 40 MG/0.4 ML SYR SC (20:25)
[2019-07-31] MEDS: Pantoprazole 40 MG VIAL IVP (20:27)
[2019-08-01] VITALS (32 sets, daily range): BP systolic 137–192; BP diastolic 70–134; PULSE 57–102; RESP 10–37; TEMP 36–36.7; O2SAT 90–98
[2019-08-01] MEDS: LORazepam 2 MG/ML VIAL IVP ×3 (01:05→03:39)
[2019-08-01] MEDS: Normal Saline Flush 10 ML SYR IVP ×3 (01:06→21:20)
[2019-08-01] MEDS: Refresh PLUS Eye Drops 0.4ml 1 EACH OU ×4 (03:38→20:01)
[2019-08-01] MEDS: POTASSIUM CHLORIDE/0.9% NACL 1,000 ML 80 MEQ IV ×2 (03:42→22:55)
[2019-08-01] MEDS: diazePAM 10 MG/2 ML SYR 5 MG IVP (04:00)
[2019-08-01 06:59] LABS: Abs Immature Grans 0.01 k/cumm (0.0-0.09); Absolute Basophil Count 0.03 k/cumm (0.0-0.2); Absolute Eosinophil Count 0.14 k/cumm (0.0-0.7); Absolute Lymphocyte Count 1.39 k/cumm (1.2-3.4); Absolute Monocyte Count 0.55 k/cumm (0.11-0.7); Absolute Neutrophil Count 3.79 k/cumm (1.2-6.7); Basophils % 0.5; Eosinophils % 2.4; HGB 12.5 g/dL (13.5-17.5); Immature Grans % 0.2 %; Lymphocytes % 23.5; Mean Corp. HGB Concentration 32.9 g/dL (32.0-36.0); Mean Corpuscular Hemoglobin 31.6 pg (27.0-33.0); Mean Platelet Volume 10.4 fL (8.0-11.0); Monocytes % 9.3; Neutrophils % 64.1; Platelet Count 218 x1000/uL (130-400); RBC 3.96 m/cumm (4.50-6.00); White Blood Cell Count 5.91 k/cumm (4.4-10.8)
[2019-08-01 07:13] LABS: BUN 9 mg/dL (7-18); CREATININE 0.82 mg/dL (0.70-1.30); Calcium 8.3 mg/dL (8.5-10.1); Chloride 108 mmol/L (98-107); Glucose 86 mg/dL (74-106); Magnesium 1.4 mg/dL (1.8-2.4); Potassium 3.4 mmol/L (3.5-5.1); Sodium 143 mmol/L (136-145)
[2019-08-01 07:32] LABS: Diff Comment Agrees w/ Instrument; RBC Morphology Normal
[2019-08-01] MEDS: Budesonide/Formoterol 160/4.5 6 GM 60 PUFF INH IH ×2 (08:06→20:01)
[2019-08-01] MEDS: MULTIVITAMIN 10 ML, THIAMINE 100 MG, FOLIC ACID 1 MG in DEXTROSE 5%-0.45% SALINE 1,000 ML 150 ML IV (09:15)
--- NOTE | 2019-08-01 10:24 | PDOC.CMPRO ---
- If Service Date Differs Date of service: 08/01/19 Time of Service: 10:24 Care Management Progress Note S/O: Rick was presented at multidisciplinary rounds, CM reviewed clinical chart. Plan medications being weaned, he has been extubated and improving. He continues to be assessed for withdrawal and treated for symptom management. He remains on IV abx. CM will continue to assess for discharge needs and provide update to family. A: Rick is a 73 year old male admitted to [facility] on 07/27/19 with Alcohol withdrawal seizure, and aspiration pneumonia currently intubated and being treated with IV abx. P: Rick continues to be monitored at ICU level of care. Anticipate he will return home when medically cleared. Further evaluations will be made to determine discharge needs. Anticipate he will be driven home by family via private vehicle. CM will continue to follow and support discharge planning considerations.
[2019-08-01] MEDS: MAGNESIUM SULFATE 4 GM/100 ML BAG IVPB (10:31)
[2019-08-01] MEDS: Cyanocobalamin 500 MCG TAB 1000 MCG NG (10:31)
--- NOTE | 2019-08-01 11:28 | IN_ITS ---
Date of service: 08/01/19 Time of Service: 11:28 PT Notes Visit Reasons: ALCOHOL WITHDRAWAL SEIZURE Physical Therapy Inpatient Initial Evaluation Date: 08/01/2019 Referring Doctor: Clement orders sent in by Álvaro Roger MD on 07/28/2019. Per verbal order of Ez Dougherty MD on 08/01/2019 PT Orders: PT CONSULT: Eval/Treat. Limited ability Precautions: Fall. Standard. Activity as tolerated. Patient Profile/Admitting Diagnosis: Patient is a 73-year-old male who presented to the ED on 07/27/2019 with chief complaints of tingling in the right hand and presentation of speech disturbance that was followed by an eventual sudden loss of consciousness and seizure seizure activity at the ED with GCS score of 3. Intubation was done on admission and patient was brought to the ICU for close medical monitoring. Patient was diagnosed with alcohol withdrawal with seizure, acute respiratory failure hypotension, alcoholic encephalopathy and delirium. Extubation was done on 07/31/2019. Referral for skilled physical therapy services was originally sent on 07/28/2019 but the patient was not appropriate for services at that time. Clearance by Dr. Ez Dougherty to proceed with physical therapy evaluation was given as of today. PMHX: Medical History Dyslipidemia Dysphagia Heart burn Hx of adenomatous polyp of colon Hypertension Obesity (BMI 30.0-34.9) Surgical History Colonoscopy - MAC 2011-nl EGD - MAC (05/19/17) Social History/Home Situation: Rick lives with his girlfriend in a private home in [place], [place] with a flight of stairs to enter. He states however that he has stair lift that he uses to get into the house. He is independent with all aspects of ADLs prior to this most recent admission. He did not use any assistive ambulatory device nor adaptive equipment. 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 Equipment Owned/DME: Stair lift. Subjective: Rick was only able to answer yes or no questions and responded by squeezing Pt's hand signifying his agreement to physical therapy evaluation and range of motion exercises. Later on in the evaluation, patient reports being a little out of breath after transferring from the bed to bedside recliner for this session. Objective: General Observation: Patient lying in bed. Oxygen supplementation via NC. Jimenez catheter in place. Telemetry monitoring in place. BP cuff and finger pulse oximeter in place. Bilateral TEDS to both legs. Patient initially appeared somnolent at the start of PT initial evaluation but eventually became more conversant being able to answer in phrases and short sentences as well as open his eyes to fully participate in physical therapy evaluation. Mental Status: Somnolent at the outset but was able to appropriately respond to questions later on in the evaluation. He was able to provide his home situation as well as his previous job and was following simple step commands. Pain: None reported Vital Signs: 94% on room air after bed to bedside recliner transfer and short distance ambulation ROM: Right Upper Extremity: Shoulder Flexion WFL. Shoulder abduction WFL. Elbow flexion WFL. Wrist flexion WFL. Opening and closing of hand WFL. Left Upper Extremity: Shoulder Flexion WFL. Shoulder abduction WFL. Elbow flexion WFL. Wrist flexion WFL. Opening and closing of hand WFL. Right Lower Extremity: Hip flexion WFL. Hip abduction WFL. Knee flexion WFL. Ankle dorsiflexion WFL. Ankle plantarflexion WFL. Left Lower Extremity: Hip flexion WFL. Hip abduction WFL. Knee flexion WFL. Ankle dorsiflexion WFL. Ankle plantarflexion WFL. Strength: Right Upper Extremity: Shoulder flexors 3-/5. Shoulder abductors 3-/5. Elbow flexors 3-/5. Elbow extensors 3-/5. [employer] strong. Left Upper Extremity: Shoulder flexors 3-/5. Shoulder abductors 3-/5. Elbow flexors 3-/5. Elbow extensors 3-/5. [employer] strong. Right Lower Extremity: Hip flexors 3+/5. Hip abductors 3+/5. Knee flexors 3+/5. Knee extensors 3+/5. Ankle dorsiflexors 3+/5. Ankle plantarflexors 3+/5. Left Lower Extremity: Hip flexors 3+/5. Hip abductors 3+/5. Knee flexors 3+/5. Knee extensors 3+/5. Ankle dorsiflexors 3+/5. Ankle plantarflexors 3+/5. Sensation: Intact as to pain and pressure on bilateral lower extremities. Bed Mobility/Transfers: Rolling minimal assist with moderate to maximal verbal, tactile and visual cueing for correct technique and hand placement Supine to sit moderate assist with moderate to maximal verbal, tactile and visual cueing for correct technique and hand placement Sit to stand minimal assist of 2 with moderate to maximal verbal, tactile and visual cueing for correct technique and hand placement Stand to sit minimal assist of 2 with moderate to maximal verbal, tactile and visual cueing for correct technique and hand placement Bed to chair minimal assist of 2 with moderate to maximal verbal, tactile and visual cueing for correct technique and hand placement. Nurse Juliet present in room to assist with the transfer activity. Chair to bed minimal assist of 2 with moderate to maximal verbal, tactile and visual cueing for correct technique and hand placement. Nurse Juliet present in room to assist with the transfer activity. Gait: Patient was able to perform 8 feet +3 feet of short distance ambulation from bed to bedside recliner using front wheeled walker with full weightbearing requiring minimal assist of 2 with moderate to maximal verbal cueing for walker management, correct technique and hand placement. Reciprocal gait pattern. Caitlin decreased. Decreased step height and length. However no L OB was seen. Patient mildly breathless after activity. Patient read 94% oxygen saturation on RA after activity. Balance: Static Sitting: Good Dynamic Sitting: Good Static Standing: Fair Dynamic Standing: Fair Special Tests: Mobility Limitations Standardized Measure [facility] AM-PAC 6 clicks Basic Mobility Inpatient Short Form: Raw Score: 14 CMS Score: 61% deficit Informed Consent/Education: Patient instructed in purpose of PT consult and plan of care. Assessment: Patient's level of alertness has significantly improved as of today. He is more able to respond and follow single-step commands. Sedation vacationwas initiated on 07/29/2019 nd patient was extubated yesterday with continued close monitoring of patient under ICU level of care. Patient is currently demonstrating functional mobility decline with need for assistive ambulatory device for mobility ADL performance, decreased activity tolerance, generalized body weakness, and impaired balance. Patient presents with clinical signs and symptoms consistent with current/admitting diagnoses that have resulted to mobility limitations, gait instability, generalized weakness, and impairment of motor control as demonstrated by the following impairment level findings: 1. Decreased strength to B UE/LE major muscle groups 2. Impaired sitting/standing balance 3. Impaired activity tolerance Impairments are contributing to the following functional limitations: 1. Dependent bed mobility skills 2. Increased dependence with transfers 3. Inability to safely ambulate without assistive device and physical assistance 4. Increase completion time for mobility ADL performance 5. Increased fall risk 6. Inability to negotiate steps alone safely Patient is assessed as a 73507 high complexity based on the following: History: 73-year-old male with impairment level findings, functional limitations, and past medical history as indicated above Examination: Demonstrable impairment in strength, balance, and activity tolerance with underlying impairments and functional limitations as documented above Presentation: Evolving Decision Makin high complexity Goals: Goals X1 week 1. Supine-Sit independent 2. Sit-Supine independent 3. Sit-Stand independent 4. Stand-Sit independent 5. Bed-Chair independent 6. Chair-Bed independent 7. Independent gait on level surface with use of least restrictive device for at least 300 feet without report of pain nor dyspnea 8. Independent with home exercise program 9. Good static and dynamic standing balance/tolerance Plan of Care/Treatment Plan: 1-2x/day, 7 days/week x 1 week. Initiate Physical Therapy intervention for strengthening, bed mobility, transfers, gait, stairs, balance training, use of assistive device. PT Intervention: Session today consisted of initial physical therapy evaluation as well as initiation of supine level active assistive range of motion exercises for both the upper and lower extremities followed by assessment, education, and training with mobility ADL performance. DISCHARGE RECOMMENDATIONS: Patient will benefit from home health PT services in order to progress mobility level using least restrictive assistive ambulatory device, assess home safety, identify additional equipment needs, and establish a functional maintenance program that will increase ability of patient to remain at home. TREATMENT CODE/TIME: 85918 x 30 minutes, 9711 0 x 11 minutes beginning at 11:28 AM. Thank you very much for this referral. Indiana Rodriguez PT, DPT, CLT [facility] [place], [place]
--- NOTE | 2019-08-01 12:30 | PGE_ITS ---
Date of Service Date of service: 08/01/19 Time of Service: 12:30 Assessment and Plan Assessment and plan (1) Alcohol withdrawal: Status: Acute Assessment and plan: Hospital day 5, he likely had begun to withdraw from alcohol prior to admission. He seized upon arrival in the ER. It seems unusual to continue to withdraw from alcohol this far out. Other than the visual hallu cinations he is not demonstrating many overt signs of alcohol withdrawal at this time. We may need to consider other causes of his nocturnal agitation, confusion, and the visual hallucinations. I spoke with his SO, Raven, he has no hx of hallucinations. Continue to monitor closely with CIWA scoring. (2) Aspiration pneumonia: Status: Suspected Assessment and plan: He finished 4 days of IV antibiotics. No elevated white count, no fevers. He has a marginal O2 requirement. Clinical exam is reassuring. Qualifiers: Aspiration pneumonia type: unspecified Laterality: left Lung location: lower lobe of lung Qualified Code(s): J69.0 - Pneumonitis due to inhalation of food and vomit (3) Alcohol withdrawal seizure with complication: Status: Acute Assessment and plan: No evidence of recurrent seizures. Continue seizure precautions. (4) Alcoholic encephalopathy: Status: Acute Assessment and plan: Given his extensive alcohol use history there is concern he could have an alcohol related encephalopathy. He did receive lactulose twice daily for 4 days and has had a large bowel movement. Continue with lactulose therapy 30 g twice daily. (5) Delirium: Status: Acute Assessment and plan: Delirium is presumed to be secondary to alcohol withdrawal syndrome. Rechecking ammonia level. Monitor electrolytes. Head and neck imaging on 07/28/2019 was negative. At this point we are presuming it is from prolonged alcohol use and benzodiazepine therapy. We will try to minimize sedatives as much as possible going forward. (6) Discharge planning issues: Status: Acute Assessment and plan: Hospital day 5. Continue to monitor in the intensive care unit. We have begun some progressive ambulation and feeding. The expectation is he will regain function with time. He remains a full code. Subjective Subjective Interval history since last seen: Patient became agitated and around midnight requiring bolus dosing of the lorazepam and diazepam. This morning he is quite sedated and mildly confused. He states he is seeing people. He has not otherwise been a management problem. He was able to transfer from bed to chair with maximal assist. He is starting to take some p.o. He has no cough or shortness of breath. His respiratory rate is elevated, he is breathing very shallow and rapid but is not labored. He had a large bowel movement today, heme-negative. Exam Narrative Exam Narrative: On exam he is moderately sedated but arousable. He will make eye contact and answer some questions. He has a respiratory rate of 30 without evidence of retractions or labored breathing. Lung sounds show shallow respirations but otherwise dry and clear. Heart sounds are regular. Abdomen quite markedly obese but overall nontender to palpation. The lower extremities have teds and SCDs in place. There is no significant edema. Otherwise well perfused. Neurologically he moves upper and lower extremities well. Objective Objective Clinical Data: Abnormal lab results 08/01/19 08/01/19 Range/Units 06:05 06:05 RBC 3.96 L (4.50-6.00) m/cumm Hgb 12.5 L (13.5-17.5) g/dL Hct 38.0 L (40.0-50.0) % MCV 96.0 H (80-95) fL Potassium 3.4 L (3.5-5.1) mmol/L Chloride 108 H (98-107) mmol/L Calcium 8.3 L (8.5-10.1) mg/dL Magnesium 1.4 L (1.8-2.4) mg/dL Vital Signs Temperature 36.4 C L 08/01/19 08:05 Temperature Source Temporal Artery Scan 08/01/19 08:05 Pulse 74 08/01/19 10:26 Pulse 79 08/01/19 10:26 Respiratory Rate 11 L 08/01/19 10:26 Respiratory Effort 08/01/19 08:05 Respiratory Depth Normal 08/01/19 08:05 Respiratory Pattern Tachypnea 08/01/19 08:05 Blood Pressure 151/83 H 08/01/19 10:26 Blood Pressure Mean 101 08/01/19 10:26 Blood Pressure Position Supine 08/01/19 08:05 Pulse Oximetry 94 L 08/01/19 10:26 Respiratory End-tidal CO2 36 07/31/19 10:01 Oxygen Delivery Method Nasal Cannula 08/01/19 08:58 Oxygen Flow Rate 2 08/01/19 08:25 Fraction of Inspired Oxygen (FIO2) 30 07/31/19 10:15 Pain Level 0 08/01/19 00:00 Intake & Output 07/31/19 08/01/19 08/01/19 23:59 11:59 23:59 Intake Total 1683.200 / 2112.950 1032 / 1032 Output Total 200 / 1260 750 / 750 Balance 1483.200 / 852.950 282 / 282 Weight 116 kg Intake: IV 1683.200 / 2112.950 912 / 912 Oral 120 / 120 Output: Urine 200 / 850 750 / 750 Other: Urine Color Light Ranjeet Light Ranjeet Urine Appearance Clear Clear Comment Jimenez draining clear dark urine. Jimenez draining clear orange/ranjeet urine. Stool Occult Blood Negative Stool Size Large Stool Characteristics Brown Emesis Description None Laboratory Results WBC 5.91 k/cumm (4.4-10.8) 08/01/19 06:05 RBC 3.96 m/cumm (4.50-6.00) L 08/01/19 06:05 Hgb 12.5 g/dL (13.5-17.5) L 08/01/19 06:05 Hct 38.0 % (40.0-50.0) L 08/01/19 06:05 MCV 96.0 fL (80-95) H 08/01/19 06:05 MCH 31.6 pg (27.0-33.0) 08/01/19 06:05 MCHC 32.9 g/dL (32.0-36.0) 08/01/19 06:05 RDW 14.0 % (11.8-14.1) 08/01/19 06:05 Plt Count 218 x1000/uL (130-400) 08/01/19 06:05 MPV 10.4 fL (8.0-11.0) 08/01/19 06:05 Immature Gran % 0.2 % 08/01/19 06:05 Neutrophils % 64.1 08/01/19 06:05 Band Neutrophils % 1.0 % 07/31/19 06:05 Lymphocytes % 23.5 08/01/19 06:05 Atypical Lymphs % 4 07/31/19 06:05 Monocytes % 9.3 08/01/19 06:05 Eosinophils % 2.4 08/01/19 06:05 Basophils % 0.5 08/01/19 06:05 Absolute Neutrophils 3.79 k/cumm (1.2-6.7) 08/01/19 06:05 Absolute Lymphocytes 1.39 k/cumm (1.2-3.4) 08/01/19 06:05 Absolute Monocytes 0.55 k/cumm (0.11-0.7) 08/01/19 06:05 Absolute Eosinophils 0.14 k/cumm (0.0-0.7) 08/01/19 06:05 Absolute Basophils 0.03 k/cumm (0.0-0.2) 08/01/19 06:05 Nucleated RBCs 1 /100WBC 07/27/19 16:28 Differential Comment Agrees w/ instrument 08/01/19 06:05 RBC Morphology Normal 08/01/19 06:05 Macrocytosis 1+ 07/27/19 16:28 ESR 12 mm/hr (1-20) 07/28/19 05:45 PT 10.8 sec (9.3-11.0) 07/28/19 05:45 INR 1.1 (0.9-1.1) 07/28/19 05:45 APTT 23.1 sec (21.0-31.4) 07/27/19 16:28 ABG Sample Site Right radial 07/30/19 07:56 ABG pH 7.39 (7.35-7.45) 07/30/19 07:56 ABG pCO2 40 mmHg (34-47) 07/30/19 07:56 ABG pO2 81 mmHg (83-108) L 07/30/19 07:56 ABG HCO3 25 mmol/L (22-28) 07/30/19 07:56 ABG Total CO2 22 mmol/L (22-29) 07/30/19 07:56 ABG O2 Saturation 95 % (94-98) 07/30/19 07:56 ABG Base Excess -0.4 mmol/L (-3-3) 07/30/19 07:56 Oxygen Liter Flow Cancelled 07/29/19 07:55 FiO2 60 % 07/30/19 07:56 Sodium 143 mmol/L (136-145) 08/01/19 06:05 Potassium 3.4 mmol/L (3.5-5.1) L 08/01/19 06:05 Chloride 108 mmol/L (98-107) H 08/01/19 06:05 Carbon Dioxide 27.0 mmol/L (21.0-32.0) 08/01/19 06:05 Anion Gap 8.0 mmol/L (3-11) 08/01/19 06:05 BUN 9 mg/dL (7-18) 08/01/19 06:05 Creatinine 0.82 mg/dL (0.70-1.30) 08/01/19 06:05 Estimated GFR/1.73 m2 >= 60.00 (mL/min/1.73m2) 08/01/19 06:05 Glucose 86 mg/dL (74-106) 08/01/19 06:05 Hemoglobin A1c 5.4 % (3.8-5.6) 07/29/19 06:40 Calcium 8.3 mg/dL (8.5-10.1) L 08/01/19 06:05 Phosphorus 3.0 mg/dL (2.6-4.7) 07/27/19 19:30 Magnesium 1.4 mg/dL (1.8-2.4) L 08/01/19 06:05 Total Bilirubin 1.0 mg/dL (0.2-1.0) 07/28/19 05:45 AST 23 U/L (15-37) 07/28/19 05:45 ALT 21 U/L (16-63) 07/28/19 05:45 Alkaline Phosphatase 55 U/L (46-116) 07/28/19 05:45 Ammonia 47 umol/L (11-32) H 07/29/19 06:40 Creatine Kinase 65 U/L (39-308) 07/29/19 06:40 Troponin I < 0.05 ng/Ml (<0.06) 07/28/19 05:45 C-Reactive Protein 7.95 mg/dL (0.0-0.3) H 07/29/19 06:40 Total Protein 5.9 g/dL (6.4-8.2) L 07/28/19 05:45 Albumin 2.7 g/dL (3.4-5.0) L 07/28/19 05:45 Vitamin B12 238 pg/mL (193-986) 07/29/19 06:40 Folate 15.7 ng/mL (8.6-20.0) 07/29/19 06:40 Procalcitonin < 0.1 ng/mL 07/28/19 05:45 TSH 1.95 uIU/mL (0.36-3.74) 07/28/19 05:45 Urine Color Yellow (Yellow) 07/28/19 18:00 Urine Clarity Cloudy (Clear) 07/28/19 18:00 Urine pH 5.5 (5-8) 07/28/19 18:00 Ur Specific [place] 1.025 (1.005-1.025) 07/28/19 18:00 Urine Protein 100 mg/dL (Negative) H 07/28/19 18:00 Urine Ketones Negative mg/dL (Negative) 07/28/19 18:00 Urine Blood Large (Negative) H 07/28/19 18:00 Urine Nitrite Negative (Negative) 07/28/19 18:00 Urine Bilirubin Negative (Negative) 07/28/19 18:00 Urine Urobilinogen 0.2 EU/dL (Up TO 0.2) 07/28/19 18:00 Ur Leukocyte Esterase Trace (Negative) H 07/28/19 18:00 Urine RBC >50 HPF (0-2) H 07/28/19 18:00 Urine WBC 20-50 HPF (0-5) H 07/28/19 18:00 Ur Epithelial Cells Few HPF (Negative) 07/28/19 18:00 Urine Crystals Many uric acid HPF (Negative) 07/28/19 18:00 Urine Bacteria Not Applicable 07/28/19 18:00 Urine Casts Negative LPF (Negative) 07/28/19 18:00 Urine Mucus Negative (Negative) 07/28/19 18:00 Ur Culture Indicated? Yes 07/28/19 18:00 Urine Glucose Negative mg/dL (Negative) 07/28/19 18:00 Urine Opiates Screen Negative (Negative) 07/27/19 17:10 Urine Methadone Screen Negative (Negative) 07/27/19 17:10 Ur Barbiturates Screen Negative (Negative) 07/27/19 17:10 Ur Tricyclics Screen Negative (Negative) 07/27/19 17:10 Ur Amphetamines Screen Negative (Negative) 07/27/19 17:10 U Benzodiazepines Scrn Negative (Negative) 07/27/19 17:10 Urine Cocaine Screen Negative (Negative) 07/27/19 17:10 Ur THC Screen Negative (Negative) 07/27/19 17:10 Ethyl Alcohol < 3.0 mg/dL (<3) 07/27/19 16:28 Coronavirus (PCR) Negative (Negative) 07/28/19 10:45 Path Cons Comment 07/27/19 16:28
--- NOTE | 2019-08-01 13:55 | PT.INTREAT ---
Date of service: 08/01/19 Time of Service: 13:55 PT Notes Visit Reasons: ALCOHOL WITHDRAWAL SEIZURE Inpatient Physical Therapy Treatment Note [facility] Date: 08/01/2019 PRECAUTIONS: Seizure precautions. Fall risk. Activity as tolerated. SUBJECTIVE: I want to go to my car and drive home. Did not report any dizziness nor pain/discomfort. Wanted to stay on the chair for a little bit more stating that he has been in bed for a long time. OBJECTIVE: General Observation: Patient sitting on bedside recliner. Oxygen supplementation via NC. Jimenez catheter in place. Telemetry monitoring in place. BP cuff and finger pulse oximeter in place. Bilateral TEDS to both legs. No tremors at rest and with activity were seen. No visual hallucinations expressed. Mental Status: Patient was awake throughout session. Responding appropriately to questions in short phrases and short sentences. Follows single-step/double-step commands. PAIN: None reported. THEREX: Patient tolerated AAROM to B UE consiting of--unilateral shoulder flexion x 10 on each side, unilateral [id number] x 10 on each side, hand to opposite shoulder x 10 on each side; LAQ x 10, seated hip flexion x10, seated hip adduction/pillow squeeze x 10, and ankle PF/DF x 10. ASSESSMENT: Patient requires skilled services for education/training/progression of assistance with all mobility ADL performance. He presents with generalized UE/LE weakness, unsteadiness of gait, impaired balance, and decreased activity tolerance. His level of alertnes has significantly improved as of today. PLAN: Continue with PT POC as established this morning. TREATMENT CODE/TIME: 91757 x 23 minutes beginning at 13:55 PM.
--- NOTE | 2019-08-01 14:11 | TELEFU_ITS ---
Date of service: 08/01/19 Time of Service: 14:11 Nutritional Follow up NOTE: Feeding tube removed 07/31/19. Diet advanced to Regular diet 08/01/19, still too confused to eat at this time. Nurses provided CIB shake for lunch today. May benefit from FLATWORK CATCHER consult if continues to have swallowing issues as wakes up. Labs indicate low K and Mg, being repleted. Will continue to follow, will provide Ensure plus TID. Time Spent in Nutritional Counseling and Treatment: 0 time spent face to face
[2019-08-01] MEDS: Lactulose 20 GM/30 ML CUP PO (20:01)
[2019-08-01] MEDS: Enoxaparin 40 MG/0.4 ML SYR SC (21:20)
[2019-08-01] MEDS: Pantoprazole 40 MG VIAL IVP (21:20)
[2019-08-01] MEDS: Carvedilol 3.125 MG TAB PO (23:35)
[2019-08-01] MEDS: amLODIPine 5 MG TAB PO (23:35)
[2019-08-02] VITALS (44 sets, daily range): BP systolic 125–185; BP diastolic 70–108; PULSE 55–80; RESP 11–43; TEMP 36.5–37; O2SAT 90–97
[2019-08-02] MEDS: Refresh PLUS Eye Drops 0.4ml 1 EACH OU ×2 (04:34→07:37)
[2019-08-02 06:20] LABS: Abs Immature Grans 0.02 k/cumm (0.0-0.09); Absolute Basophil Count 0.01 k/cumm (0.0-0.2); Absolute Eosinophil Count 0.18 k/cumm (0.0-0.7); Absolute Lymphocyte Count 1.39 k/cumm (1.2-3.4); Absolute Monocyte Count 0.64 k/cumm (0.11-0.7); Absolute Neutrophil Count 4.09 k/cumm (1.2-6.7); Basophils % 0.2; Eosinophils % 2.8; HCT 37.4 % (40.0-50.0); HGB 12.6 g/dL (13.5-17.5); Immature Grans % 0.3 %; Mean Corp. HGB Concentration 33.7 g/dL (32.0-36.0); Mean Corpuscular Hemoglobin 31.7 pg (27.0-33.0); Mean Corpuscular Volume 94.2 fL (80-95); Mean Platelet Volume 9.9 fL (8.0-11.0); Monocytes % 10.1; Neutrophils % 64.6; Platelet Count 220 x1000/uL (130-400); RBC 3.97 m/cumm (4.50-6.00); RBC Distribution Width 13.5 % (11.8-14.1); White Blood Cell Count 6.33 k/cumm (4.4-10.8)
[2019-08-02 06:35] LABS: Ammonia 43 umol/L (11-32)
[2019-08-02 06:36] LABS: ALT 21 U/L (16-63); AST 21 U/L (15-37); Albumin 2.3 g/dL (3.4-5.0); Alkaline Phosphatase 51 U/L (46-116); Anion Gap 9.3 mmol/L (3-11); BUN 5 mg/dL (7-18); Bilirubin, Total 0.9 mg/dL (0.2-1.0); CO2 27.7 mmol/L (21.0-32.0); CREATININE 0.82 mg/dL (0.70-1.30); Calcium 8.4 mg/dL (8.5-10.1); Chloride 107 mmol/L (98-107); Glucose 93 mg/dL (74-106); Magnesium 1.6 mg/dL (1.8-2.4); Potassium 3.2 mmol/L (3.5-5.1); Sodium 144 mmol/L (136-145); Total Protein 6.2 g/dL (6.4-8.2)
[2019-08-02] MEDS: Carvedilol 3.125 MG TAB PO ×2 (07:37→20:17)
[2019-08-02] MEDS: Cyanocobalamin 500 MCG TAB 1000 MCG NG (07:37)
[2019-08-02] MEDS: Lactulose 20 GM/30 ML CUP PO ×2 (07:37→20:17)
[2019-08-02] MEDS: MULTIVITAMIN 10 ML, THIAMINE 100 MG, FOLIC ACID 1 MG in DEXTROSE 5%-0.45% SALINE 1,000 ML 167 ML IV (08:29)
[2019-08-02] MEDS: Magnesium Oxide 400 MG TAB (12:52)
[2019-08-02] MEDS: hydroCHLOROthiazide 12.5 MG TAB PO (12:52)
[2019-08-02] MEDS: Potassium Chloride 20 MEQ TABCR 40 MEQ PO (12:52)
[2019-08-02] MEDS: Losartan 25 MG TAB PO (12:52)
--- NOTE | 2019-08-02 13:28 | W.PM.PROGNOT ---
Date of Service Date of service: 08/02/19 Time of Service: 13:28 Assessment and Plan Assessment and plan (1) Alcoholic encephalopathy: Status: Acute Assessment and plan: He still has some residual psychomotor slowing but is overall improved. I think it is a combination of the sedatives in addition to his chronic alcohol use. Continue to work with PT/OT for return of ADLs. Continue the lactulose 20 g twice daily. (2) Alcohol withdrawal: Status: Acute Assessment and plan: He remains on CIWA scoring. His scores have diminished markedly. I suspect he will only need to be monitored for another 24 hours. He is about 7 days out from his last drink. (3) Aspiration pneumonia: Status: Suspected Assessment and plan: He is off antibiotics times about 48 hours. He has not had any fever or significant respiratory difficulties. Qualifiers: Aspiration pneumonia type: unspecified Laterality: left Lung location: lower lobe of lung Qualified Code(s): J69.0 - Pneumonitis due to inhalation of food and vomit (4) Alcohol withdrawal seizure with complication: Status: Acute Assessment and plan: Alcohol withdrawal seizures on presentation. No evidence of recurrent seizures. He is not on antiepileptic medicines. (5) Hypokalemia: Status: Acute Assessment and plan: Potassium replacement today. Recheck electrolytes in the a.m. (6) Hypomagnesemia: Status: Acute Assessment and plan: Started magnesium oxide 400 mg p.o. twice daily. Check magnesium level periodically. He is on chronic PPI therapy. (7) Discharge planning issues: Status: Acute Assessment and plan: DC Hancock catheter today. DC IV fluids. Transition to p.o. medications including his usual blood pressure medications. Will transfer out of the ICU today to the [facility] floor. Anticipate discharge in the next 24 to 48 hours if continues improving. Subjective Subjective Interval history since last seen: He is improved considerably. Today he is conversant and following commands readily. He still has a little difficulty with hand eye coordination such as trying to feed himself. He is asking to go home. His ex- and girlfriend have been checking in frequently. He is working with physical therapy. He is a full assist walking with a walker. No evidence of seizure activity. Withdrawal symptoms seem to have abated. Exam Narrative Exam Narrative: On exam he is remarkably improved. He attends well, he answers questions. He is tolerating a regular diet but has feeding issues as noted. His lung sounds are completely clear and dry bilaterally. Heart sounds are regular no significant murmur. Abdomen quite rotund but nontender. Lower extremities have teds in place, no edema. Neurologically his movements are somewhat slow and halting but fluid. He does have some hand eye coordination difficulty. No significant tremor. Objective Objective Clinical Data: Abnormal lab results 08/02/19 08/02/19 08/02/19 Range/Units 06:00 06:00 06:00 RBC 3.97 L (4.50-6.00) m/cumm Hgb 12.6 L (13.5-17.5) g/dL Hct 37.4 L (40.0-50.0) % Potassium 3.2 L (3.5-5.1) mmol/L BUN 5 L (7-18) mg/dL Calcium 8.4 L (8.5-10.1) mg/dL Magnesium 1.6 L (1.8-2.4) mg/dL Ammonia 43 H (11-32) umol/L Total Protein 6.2 L (6.4-8.2) g/dL Albumin 2.3 L (3.4-5.0) g/dL Vital Signs Temperature 36.5 C 08/02/19 07:52 Temperature Source Temporal Artery Scan 08/02/19 07:52 Pulse 57 L 08/02/19 10:01 Pulse 57 L 08/02/19 10:01 Respiratory Rate 28 H 08/02/19 10:01 Respiratory Effort Incrsd Work of Breathing 08/02/19 07:55 Respiratory Depth Shallow 08/02/19 07:55 Respiratory Pattern Normal 08/02/19 07:55 Blood Pressure 169/98 H 08/02/19 10:01 Blood Pressure Mean 116 08/02/19 10:01 Blood Pressure Position Supine 08/02/19 00:21 Pulse Oximetry 91 L 08/02/19 09:00 Respiratory End-tidal CO2 36 07/31/19 10:01 Oxygen Delivery Method Room Air 08/02/19 07:54 Oxygen Flow Rate 0 08/02/19 07:54 Fraction of Inspired Oxygen (FIO2) 30 07/31/19 10:15 Pain Level 0 08/02/19 07:52 Intake & Output 08/01/19 08/02/19 08/02/19 23:59 11:59 23:59 Intake Total 1700.534 / 2732.534 30 / 30 Output Total 1600 / 2350 2925 / 2925 Balance 100.534 / 382.534 -2895 / -2895 Weight 112 kg Intake: IV 1500.534 / 2412.534 Oral 200 / 320 30 / 30 Output: Urine 1600 / 2350 2925 / 2925 Other: Urine Color Dark Danielle Light Danielle Urine Appearance Clear Clear Comment Hancock draining clear dark yellow urine. hancock to gravity CYU Laboratory Results WBC 6.33 k/cumm (4.4-10.8) 08/02/19 06:00 RBC 3.97 m/cumm (4.50-6.00) L 08/02/19 06:00 Hgb 12.6 g/dL (13.5-17.5) L 08/02/19 06:00 Hct 37.4 % (40.0-50.0) L 08/02/19 06:00 MCV 94.2 fL (80-95) 08/02/19 06:00 MCH 31.7 pg (27.0-33.0) 08/02/19 06:00 MCHC 33.7 g/dL (32.0-36.0) 08/02/19 06:00 RDW 13.5 % (11.8-14.1) 08/02/19 06:00 Plt Count 220 x1000/uL (130-400) 08/02/19 06:00 MPV 9.9 fL (8.0-11.0) 08/02/19 06:00 Immature Gran % 0.3 % 08/02/19 06:00 Neutrophils % 64.6 08/02/19 06:00 Band Neutrophils % 1.0 % 07/31/19 06:05 Lymphocytes % 22.0 08/02/19 06:00 Atypical Lymphs % 4 07/31/19 06:05 Monocytes % 10.1 08/02/19 06:00 Eosinophils % 2.8 08/02/19 06:00 Basophils % 0.2 08/02/19 06:00 Absolute Neutrophils 4.09 k/cumm (1.2-6.7) 08/02/19 06:00 Absolute Lymphocytes 1.39 k/cumm (1.2-3.4) 08/02/19 06:00 Absolute Monocytes 0.64 k/cumm (0.11-0.7) 08/02/19 06:00 Absolute Eosinophils 0.18 k/cumm (0.0-0.7) 08/02/19 06:00 Absolute Basophils 0.01 k/cumm (0.0-0.2) 08/02/19 06:00 Nucleated RBCs 1 /100WBC 07/27/19 16:28 Differential Comment Agrees w/ instrument 08/01/19 06:05 RBC Morphology Normal 08/01/19 06:05 Macrocytosis 1+ 07/27/19 16:28 ESR 12 mm/hr (1-20) 07/28/19 05:45 PT 10.8 sec (9.3-11.0) 07/28/19 05:45 INR 1.1 (0.9-1.1) 07/28/19 05:45 APTT 23.1 sec (21.0-31.4) 07/27/19 16:28 ABG Sample Site Right radial 07/30/19 07:56 ABG pH 7.39 (7.35-7.45) 07/30/19 07:56 ABG pCO2 40 mmHg (34-47) 07/30/19 07:56 ABG pO2 81 mmHg (83-108) L 07/30/19 07:56 ABG HCO3 25 mmol/L (22-28) 07/30/19 07:56 ABG Total CO2 22 mmol/L (22-29) 07/30/19 07:56 ABG O2 Saturation 95 % (94-98) 07/30/19 07:56 ABG Base Excess -0.4 mmol/L (-3-3) 07/30/19 07:56 Oxygen Liter Flow Cancelled 07/29/19 07:55 FiO2 60 % 07/30/19 07:56 Sodium 144 mmol/L (136-145) 08/02/19 06:00 Potassium 3.2 mmol/L (3.5-5.1) L 08/02/19 06:00 Chloride 107 mmol/L (98-107) 08/02/19 06:00 Carbon Dioxide 27.7 mmol/L (21.0-32.0) 08/02/19 06:00 Anion Gap 9.3 mmol/L (3-11) 08/02/19 06:00 BUN 5 mg/dL (7-18) L 08/02/19 06:00 Creatinine 0.82 mg/dL (0.70-1.30) 08/02/19 06:00 Estimated GFR/1.73 m2 >= 60.00 (mL/min/1.73m2) 08/02/19 06:00 Glucose 93 mg/dL (74-106) 08/02/19 06:00 Hemoglobin A1c 5.4 % (3.8-5.6) 07/29/19 06:40 Calcium 8.4 mg/dL (8.5-10.1) L 08/02/19 06:00 Phosphorus 3.0 mg/dL (2.6-4.7) 07/27/19 19:30 Magnesium 1.6 mg/dL (1.8-2.4) L 08/02/19 06:00 Total Bilirubin 0.9 mg/dL (0.2-1.0) 08/02/19 06:00 AST 21 U/L (15-37) 08/02/19 06:00 ALT 21 U/L (16-63) 08/02/19 06:00 Alkaline Phosphatase 51 U/L (46-116) 08/02/19 06:00 Ammonia 43 umol/L (11-32) H 08/02/19 06:00 Creatine Kinase 65 U/L (39-308) 07/29/19 06:40 Troponin I < 0.05 ng/Ml (<0.06) 07/28/19 05:45 C-Reactive Protein 7.95 mg/dL (0.0-0.3) H 07/29/19 06:40 Total Protein 6.2 g/dL (6.4-8.2) L 08/02/19 06:00 Albumin 2.3 g/dL (3.4-5.0) L 08/02/19 06:00 Vitamin B12 238 pg/mL (193-986) 07/29/19 06:40 Folate 15.7 ng/mL (8.6-20.0) 07/29/19 06:40 Procalcitonin < 0.1 ng/mL 07/28/19 05:45 TSH 1.95 uIU/mL (0.36-3.74) 07/28/19 05:45 Urine Color Yellow (Yellow) 07/28/19 18:00 Urine Clarity Cloudy (Clear) 07/28/19 18:00 Urine pH 5.5 (5-8) 07/28/19 18:00 Ur Specific Speculator 1.025 (1.005-1.025) 07/28/19 18:00 Urine Protein 100 mg/dL (Negative) H 07/28/19 18:00 Urine Ketones Negative mg/dL (Negative) 07/28/19 18:00 Urine Blood Large (Negative) H 07/28/19 18:00 Urine Nitrite Negative (Negative) 07/28/19 18:00 Urine Bilirubin Negative (Negative) 07/28/19 18:00 Urine Urobilinogen 0.2 EU/dL (Up TO 0.2) 07/28/19 18:00 Ur Leukocyte Esterase Trace (Negative) H 07/28/19 18:00 Urine RBC >50 HPF (0-2) H 07/28/19 18:00 Urine WBC 20-50 HPF (0-5) H 07/28/19 18:00 Ur Epithelial Cells Few HPF (Negative) 07/28/19 18:00 Urine Crystals Many uric acid HPF (Negative) 07/28/19 18:00 Urine Bacteria Not Applicable 07/28/19 18:00 Urine Casts Negative LPF (Negative) 07/28/19 18:00 Urine Mucus Negative (Negative) 07/28/19 18:00 Ur Culture Indicated? Yes 07/28/19 18:00 Urine Glucose Negative mg/dL (Negative) 07/28/19 18:00 Urine Opiates Screen Negative (Negative) 07/27/19 17:10 Urine Methadone Screen Negative (Negative) 07/27/19 17:10 Ur Barbiturates Screen Negative (Negative) 07/27/19 17:10 Ur Tricyclics Screen Negative (Negative) 07/27/19 17:10 Ur Amphetamines Screen Negative (Negative) 07/27/19 17:10 U Benzodiazepines Scrn Negative (Negative) 07/27/19 17:10 Urine Cocaine Screen Negative (Negative) 07/27/19 17:10 Ur THC Screen Negative (Negative) 07/27/19 17:10 Ethyl Alcohol < 3.0 mg/dL (<3) 07/27/19 16:28 Coronavirus (PCR) Negative (Negative) 07/28/19 10:45 Path Cons Comment 07/27/19 16:28
--- NOTE | 2019-08-02 14:55 | PTTR_ITS ---
Date of service: 08/02/19 Time of Service: 14:55 PT Notes Visit Reasons: ALCOHOL WITHDRAWAL SEIZURE Inpatient Physical Therapy Treatment Note [facility] Date: 08/02/2019 PRECAUTIONS: Fall risk. Activity as tolerated. SUBJECTIVE: When asked how Rick was doing, I would be well if I am headed home was the reply. He complained of achiness in his whole body, he said his back is the one that is mostly bothering him towards the end of his walking activity. He did not verbalize dizziniess the way he did during the morning walk. OBJECTIVE: General Observation: Patient lying in bed. Oxygen supplementation as well as hancock catheter were discharged as of this morning. Telemetry monitoring in place but was taken off by Nurse Fontaine right before walking activity in the afternoon. Bilateral TEDS readjusted to both legs to prevent cutting circulation around proximal leg area. Mental Status: Alert and oriented x4 PAIN: Reported some discomfort some achiness in his whole body towards the end of ambulation activity with his back bothering him the most. Bed mobility/Transfers: Supine to sit CGA with HOB 30 degrees, moderate verbal cues needed for safe technique Sit to supine CGA with HOB 30 degrees, moderate verbal cues needed for safe technique Sit to stand minimal assist in the morning from edge of bed, CGA in the afternoon both requiring moderate verbal cues for use of the B UE and safe technique Stand to sit minimal assist in the morning from edge of bed, CGA in the afternoon both requiring moderate verbal cues for use of the B UE and safe technique Bed to chair minimal assist in the morning from edge of bed, CGA in the afternoon both requiring moderate verbal cues for use of the B UE and safe technique Chair to bed minimal assist in the morning from edge of bed, CGA in the afternoon both requiring moderate verbal cues for use of the B UE and safe technique GAIT: Morning session--Patient was able to tolerate 90 feet of level surface ambulation using a front wheel walker with full weight bearing with minimal assist and IV pole management of PT and wheelchair follow of nurse Roca. Patient complained of mild dizziness that was short-lived. HR ranged from 76 to 89 bpm, oxygen saturation ranged from 91% to 93% on room air. Caitlin decreased. Promotions Assistant on walker handles not so strong needed cueing for correct walker management. Afternoon session--patient managed 200 feet using front wheeled walker this time with just contact-guard assist with caitlin increasing and no complaints of dizziness. Patient did state something about a back discomfort towards the end of ambulation activity that disappeared with rest. Holding onto walker handles a lot better. THEREX: Morning session--Using green Thera-Band, seated hip flexion x10, clamshell exercises x10, shoulder horizontal abduction x10, unilateral shoulder flexion through the scapular plane x10 on each side, shoulder external rotation x10. Standing level balance exercises consisting of heel raises x10 and marching in place x10 with intermittent rests needed due to mild breathlessness. Oxygen saturation remained above 90% on room air. Afternoon session??using green Thera-Band, seated hip flexion x10 clam shell exercises x10, resisted knee flexion x10. With 1 pound dumbbell unilateral forward reaching x10 on each side. ASSESSMENT: Significant improvements in terms of mental status/level of alertness, strength, activity tolerance, and balance awareness were demonstrated by patient today. He is being transitioned to acute level of care on the [facility] unit as of this afternoon and will continue with skilled physical therapy services in anticipation of return to home when medically cleared. PLAN: Continue with PT POC as established. TREATMENT CODE/TIME: Session 1??90762 x 35 minutes, 52127 x 31 minutes beginning at 10:55 AM. Session 2??[id number] x 30 minutes, 88575 x 13 minutes beginning at 14:55 PM.
--- NOTE | 2019-08-02 16:58 | PDOC.CMPRO ---
- If Service Date Differs Date of service: 08/02/19 Time of Service: 16:58 Care Management Progress Note S/O: Rick was sitting up in his bed when CM met with him. He stated that he is feeling much better, and that he would like to return home. CM asked if he would be interested in talking to a community living coach. He reported that he did talk to someone on April 14, and his plan was to cut back on his drinking at that point. He stated that after this experience he knows that he needs to stop drinking altogether. CM called the community living coach who will talk with him tomorrow. Today he is being transitioned to [facility], as he is much more stable. He has been working with PT, who reports that he is doing well, but he could benefit from a short rehab stay prior to returning home. PT also stated that he would benefit from an OT consult, which was relayed to the provider. Rick has stated that he would like to return home where his girlfriend will be supportive of not drinking. CM will continue to follow. A: Rick is a 73 year old male admitted to [facility] on 07/27/19 with Alcohol withdrawal seizure, and aspiration pneumonia currently intubated and being treated with IV abx. P: Rick was transferred to [facility] level of care today. Anticipate he will return home when medically cleared. Further evaluations will be made to determine discharge needs. Anticipate he will be driven home by family via private vehicle. CM will continue to follow and support discharge planning considerations.
[2019-08-02] MEDS: Magnesium Oxide 400 MG TAB PO (20:17)
[2019-08-02] MEDS: Enoxaparin 40 MG/0.4 ML SYR SC (22:09)
[2019-08-03] VITALS (8 sets, daily range): BP systolic 159–181; BP diastolic 81–109; PULSE 57–67; RESP 17–20; TEMP 36.2–37.5; O2SAT 91–97
[2019-08-03 07:02] LABS: Abs Immature Grans 0.02 k/cumm (0.0-0.09); Absolute Basophil Count 0.03 k/cumm (0.0-0.2); Absolute Eosinophil Count 0.14 k/cumm (0.0-0.7); Absolute Monocyte Count 0.64 k/cumm (0.11-0.7); Absolute Neutrophil Count 3.64 k/cumm (1.2-6.7); Basophils % 0.5; Eosinophils % 2.3; HCT 40.3 % (40.0-50.0); HGB 13.3 g/dL (13.5-17.5); Immature Grans % 0.3 %; Lymphocytes % 25.1; Mean Corpuscular Hemoglobin 30.8 pg (27.0-33.0); Mean Corpuscular Volume 93.3 fL (80-95); Mean Platelet Volume 10.1 fL (8.0-11.0); Monocytes % 10.7; Neutrophils % 61.1; Platelet Count 249 x1000/uL (130-400); RBC 4.32 m/cumm (4.50-6.00); RBC Distribution Width 13.7 % (11.8-14.1); White Blood Cell Count 5.97 k/cumm (4.4-10.8)
[2019-08-03 07:18] LABS: Anion Gap 8.2 mmol/L (3-11); BUN 5 mg/dL (7-18); CO2 27.8 mmol/L (21.0-32.0); Calcium 8.7 mg/dL (8.5-10.1); Chloride 106 mmol/L (98-107); Glucose 92 mg/dL (74-106); Magnesium 1.4 mg/dL (1.8-2.4); Potassium 3.1 mmol/L (3.5-5.1); Sodium 142 mmol/L (136-145)
[2019-08-03] MEDS: Lactulose 20 GM/30 ML CUP PO (07:45)
[2019-08-03] MEDS: Cyanocobalamin 500 MCG TAB 1000 MCG NG (07:45)
[2019-08-03] MEDS: Carvedilol 3.125 MG TAB PO ×2 (07:46→20:47)
[2019-08-03] MEDS: Thiamine 100 MG TAB PO (07:46)
[2019-08-03] MEDS: hydroCHLOROthiazide 12.5 MG TAB PO (07:46)
[2019-08-03] MEDS: Losartan 25 MG TAB PO (07:46)
[2019-08-03] MEDS: Folic Acid 1 MG TAB PO (07:46)
[2019-08-03] MEDS: Magnesium Oxide 400 MG TAB PO ×2 (07:46→20:00)
[2019-08-03] MEDS: Multivitamin TAB 1 TAB PO (07:46)
[2019-08-03] MEDS: Omeprazole 20 MG CAPCR 40 MG PO (07:46)
--- NOTE | 2019-08-03 10:41 | OT.INIE ---
Occupational Therapy Notes Inpatient Occupational Therapy Evaluation Date: 08/03/19 Referring Doctor: Joie Vieira NP OT Orders: Non-Urgent Precautions: Full, Standard PATIENT PROFILE/ADMITTING DIAGNOSIS: Pt is a 73-year-old male who presented to the ER on 07/27/2019 with c/o tingling in the (R) hand/UE and presentation of speech disturbance that was followed by an eventual sudden loss of consciousness and seizure seizure activity. Pt underwent intubation on admission and pt was transitioned to the ICU. Patient was medically monitored for diagnosis with alcohol withdrawal with seizure, acute respiratory failure hypotension, alcoholic encephalopathy and delirium. Past Medical History: Medical History Dyslipidemia Dysphagia Heart burn Hx of adenomatous polyp of colon Hypertension Obesity (BMI 30.0-34.9) Surgical History Colonoscopy - MAC 2010-nl EGD - MAC (05/19/17) Social History/Home Situation: Pt lives in [place] with his girlfriend. He reports that they live in a split level home that has 22 steep stairs to get from the basement to the 2nd floor. He states that they have a chair lift. Pt is (I) at his baseline level of function. They have a walk in shower with no seat which OT recommends would benefit pts safety. Pt drives (I), he (A) with cooking, meal prep and grocery shopping which he states I push the cart. He also notes that his laundry is on the top floor. His bedroom to the bathroom is connected and he reports 5-10 feet away from the side of the bed. His girlfriend works at home 4 hours a day and is there to (A) as needed. He has a camp in [place] that he enjoys spending time at. 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 He has a dog and a cat. He states that he is involved more with the dog and likes to take it for walks. He also reports that during the day he likes to do wood and be outside. He can drive around the back side of his home and get to the second floor. This decreases the need to go up and down the stairs. He has a FWW/cane at home. He does not typically use an assistive device for functional mobility at baseline. Equipment owned/DME: Chair lift, grab bars, FWW, cane SUBJECTIVE: Pt was sitting in chair when OT arrived. He was pleasant and agreeable to OT session. He reports that he would like to go home today and is done with being in the hospital. He notes that it has been a long 6 days. OBJECTIVE: General Observation: Pleasant and sitting in chair, no IV connected. Pt was able to answer questions appropriately. Mental Status: A&Ox3 Pain: no c/o pain ROM: RUE AROM WFL L UE AROM WFL STRENGTH: RUE 5/5 throughout globally LUE 5/5 throughout globally SENSATION: Intact to (B) UE FUNCTIONAL MOBILITY/ADLS: Transfers with FWW at this time Sit-Stand (S) with min vc for safety awareness and jumping up from chair Stand-sit (S) BATHING Performed prior to OT arrival. He was able to demonstrate functional ROM for performance of bathing routine. He is (I) with washing face and (B) UE. DRESSING Dressing LE Sitting in chair pt was able to don and doff (B) socks with decreased safety awareness. He had slight LOB when reaching down to doff his (B) socks. This required both verbal and tactile cues. GROOMING NT TOILETING Pt was coming back from toilet when OT arrived with Nursing. Pt states that he missed the toilet and was unable to youth court judge spatial awareness on where he was in the bathroom to get on to the toilet (I). He was able to make it to the toilet with FWW and nursing. EATING NT BALANCE: Static sitting Normal Dynamic Sitting Fair-Good Static Standing Normal Dynamic Standing NT SPECIAL TESTS: Daily Activity Limitations Standardized Measure [facility] AM -PAC ?6 clicks? Daily Activity Inpatient Short Form: Raw score: 20 Standardized score: 42.03 CMS score: 38.32% INFORMED CONSENT/EDUCATION: Pt instructed in purpose of OT Consult and plan of care. ASSESSMENT: Patient is a 73-year-old male referred to occupational therapy services with diagnosis of alcohol withdrawal with seizure, acute respiratory failure hypotension, alcoholic encephalopathy and delirium. Patient presents with clinical signs and symptoms consistent with dx, as demonstrated by the following impairment level findings: Decreased functional activity tolerance, decreased body spatial awareness with ADL routines, decreased safety awareness with functional mobility and LE dressing. Impairments are contributing to the following functional limitations: Decreased functional activity tolerance, decreased performance of LE dressing with cues for safety awareness, decreased spatial awareness in toileting routine, Fall risk. Pt has good social support from girlfriend who works from home 4 hours a day, his home is set up and is handicap accessible. He presents with decreased safety awareness during OT eval. He required tactile cues and vc when don and doffing socks, he jumps up from chair with functional mobility. He does have multiple stairs in his home but he reports he can drive up to the first floor. OT recommends a shower seat to decrease pts fall risk in bathing routine. Pt states that he will just bring in FWW, this is an increased fall risk and not safe for pt. AMPAC score 20 Patient is assessed as a Low 00104 complexity based on the following: History: See above Examination: see functional limitations as noted above Presentation: Evolving Decision Making: AMPAC score 20 GOALS Goals x1 week 1. Transfers with FWW (I) 2. Dressing sitting in chair (I) with don and doffing (B) socks without LOB, (I) with don and doffing pants and shirt 3. Bathing Sitting in chair (I) 4. Toileting on toilet (I) 5. Eating (I) 6. Grooming standing at sink (I) with brushing teeth with use of FWW PLAN OF CARE/TREATMENT PLAN: 1x/day, 5 days/ week x 1week Initiate Occupational Therapy Services for bathing, dressing, grooming, toileting, eating, transfer training. DISCHARGE RECOMMENDATIONS Home when medically cleared per MD. OT recommends a shower seat to decrease pts fall risk in bathing routine. Pt states that he will just bring in FWW, this is an increased fall risk and not safe for pt. TREATMENT TIME/MINUTES/CODES 21472, 17040, 20 minutes (09:50) [facility]
--- NOTE | 2019-08-03 12:58 | PTTR_ITS ---
Date of service: 08/03/19 Time of Service: 12:58 PT Notes Visit Reasons: ALCOHOL WITHDRAWAL SEIZURE Inpatient Physical Therapy Treatment Note [facility] Date: 08/03/2019 PRECAUTIONS: Fall risk. Activity as tolerated. SUBJECTIVE: Rick notes that he continues to feel stronger and would really like to be able to go home today. He notes that prior to his morning session he tried to get up out of bed without help and fell. He notes that he was trying to go to the bathroom on his own. He notes generalized stiffness in his low back. He notes that he is not getting a lot of rest due to all the noise in the hospital. OBJECTIVE: General Observation: Patient sitting up in bed just after breakfast. Bilateral TEDS Mental Status: Alert and oriented x4 PAIN: Reported some discomfort some achiness in his whole body noting generalized stiffness due to sitting around Bed mobility/Transfers: Supine to sit S with HOB 30 degrees, min verbal cues needed for safe technique Sit to supine S with HOB 30 degrees, min verbal cues needed for safe technique Sit to stand contact guard assist in the morning from edge of bed, supervision in the afternoon both requiring min verbal cues for use of the B UE and safe technique Stand to sit contact guard assist in the morning from edge of bed, supervision in the afternoon both requiring min verbal cues for use of the B UE and safe technique Bed to chair contact guard assist in the morning from edge of bed, supervision in the afternoon both requiring min verbal cues for use of the B UE and safe technique Chair to bed contact guard assist in the morning from edge of bed, supervision in the afternoon both requiring min verbal cues for use of the B UE and safe technique GAIT: Morning session--Patient was able to tolerate 200 feet of level surface ambulation using a front wheel walker with full weight bearing with contact guard assist of PT . Patient complained of generalized stiffness. Afternoon session--patient managed 400 feet using front wheeled walker this time with just supervision with basil increasing. Patient did state something about a back discomfort towards the end of ambulation activity that disappeared with rest. THEREX: Morning session--resisted dorsiflexion/plantarflexion with green Thera- Band 20 reps, seated rows Green Thera-Band 20 times, scapular retraction with external rotation green 20 reps, bicep curls 2 pounds 20 reps each, standing hip flexion at walker 20 reps each, hip abduction with green Thera-Band for resistance 20 reps, seated ham curls with green resistance bands of 20 reps. Afternoon session??seated hip flexion 20 reps without resistance, seated rows green Thera-Band 20 reps, Scap retraction with external rotation red resistance 20 reps, bicip curls 2 pound 20 reps each, hip abduction green thera band resisted 20 reps, seated knee flexion via green Thera-Band 20 reps and long arc quads 20 reps ASSESSMENT: Significant improvements in terms of mental status/level of alertness, strength, activity tolerance, and balance awareness were demonstrated by patient today. Will continue with skilled physical therapy services in anticipation of return to home when medically cleared. PLAN: Continue with PT POC as established. TREATMENT CODE/TIME: Session 1??55390 x1 [id number] x1 35 minutes beginning at 8:35 AM. Session 2??[id number] x1 54519 x1 30 minutes beginning at 12:25 PM.
--- NOTE | 2019-08-03 13:47 | PGE_ITS ---
Date of Service Date of service: 08/03/19 Time of Service: 10:30 Assessment and Plan Assessment and plan (1) Seizure: Status: Acute Assessment and plan: No recurrence, attributed to alcohol withdrawal. I do not see a role for anticonvulsant. (2) Alcoholic encephalopathy: Status: Acute Assessment and plan: Mentation clearing. Thought process may be a little slow. Complaining about the frequency of stooling. Ammonia level down. Discontinue lactulose and monitor. Off sedatives now. (3) Hypertension: Status: None Assessment and plan: Blood pressure trending high. Carvedilol has been added to his outpatient regimen. I am increasing losartan as well. Monitor blood pressure response. (4) Hypokalemia: Status: Acute Assessment and plan: Potassium level still low. At least partially diuretic induced. Increase potassium supplement and monitor as an outpatient. (5) Hypomagnesemia: Status: Acute Assessment and plan: Magnesium low, probably from his chronic alcohol use. Continue oral supplement. Watch for diarrhea. Monitor levels as an outpatient. Subjective Subjective Interval history since last seen: Eager to go home. No seizures. Try to get out of bed on his own this morning slipped, did not injure himself. PT and OT have evaluated him, still at risk for falls. States he has handicap accessible living arrangements at home from prior resident. States he will not start drinking again but declines any kind of medical assistance or offers to assist in enrollment in AA meeting. No cough. Denies shortness of breath. Blood pressures have been creeping up. Potassium level still low. Exam Narrative Exam Narrative: Awake, recognizes me as his PCP and knows my name. Speech sometimes a little slurred. No facial asymmetry. Conjunctiva clear. No JVD. Lungs clear with no crackles or wheeze. Regular heart rhythm no murmur S3 or S4. Abdomen obese soft nontender. No edema detected to compression stockings. He has no rest tremor. No intention tremor of the upper extremities. I did not observe him walk. Objective Objective Clinical Data: Abnormal lab results 08/03/19 08/03/19 Range/Units 06:31 06:35 RBC 4.32 L (4.50-6.00) m/cumm Hgb 13.3 L (13.5-17.5) g/dL Potassium 3.1 L (3.5-5.1) mmol/L BUN 5 L (7-18) mg/dL Magnesium 1.4 L (1.8-2.4) mg/dL Vital Signs Temperature 37.5 C 08/03/19 11:15 Temperature Source Temporal Artery Scan 08/03/19 11:15 Pulse 57 L 08/03/19 11:15 Pulse Rhythm Regular 08/03/19 00:45 Pulse 75 08/02/19 15:00 Respiratory Rate 20 08/03/19 11:15 Respiratory Effort Non-Labored 08/03/19 00:45 Respiratory Depth Normal 08/03/19 00:45 Respiratory Pattern Normal 08/03/19 00:45 Blood Pressure 166/96 H 08/03/19 11:15 Blood Pressure Mean 116 08/02/19 14:05 Blood Pressure Position Supine 08/02/19 11:30 Pulse Oximetry 92 L 08/03/19 11:15 Respiratory End-tidal CO2 36 07/31/19 10:01 Oxygen Delivery Method Room Air 08/03/19 11:15 Oxygen Flow Rate 0 08/03/19 11:15 Fraction of Inspired Oxygen (FIO2) 30 07/31/19 10:15 Pain Level 0 08/02/19 16:00 Intake & Output 08/02/19 08/03/19 08/03/19 23:59 11:59 23:59 Intake Total 3462.4 / 3492.4 Output Total 950 / 3975 550 / 550 Balance 2512.4 / -482.6 -550 / -550 Weight 105.1 kg Intake: IV 3022.4 / 3022.4 Oral 440 / 470 Output: Urine 950 / 3975 550 / 550 Other: Urine Color Yellow Yellow Urine Appearance Clear Clear Urine Odor None Comment uses urinal and is also incontinent small amount in toilet, small inct. Urgency to toilet. Stool Size Moderate Stool Characteristics Liquid Voiding Methods Urinal Toilet Incontinent Laboratory Results WBC 5.97 k/cumm (4.4-10.8) 08/03/19 06:31 RBC 4.32 m/cumm (4.50-6.00) L 08/03/19 06:31 Hgb 13.3 g/dL (13.5-17.5) L 08/03/19 06:31 Hct 40.3 % (40.0-50.0) 08/03/19 06:31 MCV 93.3 fL (80-95) 08/03/19 06:31 MCH 30.8 pg (27.0-33.0) 08/03/19 06:31 MCHC 33.0 g/dL (32.0-36.0) 08/03/19 06:31 RDW 13.7 % (11.8-14.1) 08/03/19 06:31 Plt Count 249 x1000/uL (130-400) 08/03/19 06:31 MPV 10.1 fL (8.0-11.0) 08/03/19 06:31 Immature Gran % 0.3 % 08/03/19 06:31 Neutrophils % 61.1 08/03/19 06:31 Band Neutrophils % 1.0 % 07/31/19 06:05 Lymphocytes % 25.1 08/03/19 06:31 Atypical Lymphs % 4 07/31/19 06:05 Monocytes % 10.7 08/03/19 06:31 Eosinophils % 2.3 08/03/19 06:31 Basophils % 0.5 08/03/19 06:31 Absolute Neutrophils 3.64 k/cumm (1.2-6.7) 08/03/19 06:31 Absolute Lymphocytes 1.50 k/cumm (1.2-3.4) 08/03/19 06:31 Absolute Monocytes 0.64 k/cumm (0.11-0.7) 08/03/19 06:31 Absolute Eosinophils 0.14 k/cumm (0.0-0.7) 08/03/19 06:31 Absolute Basophils 0.03 k/cumm (0.0-0.2) 08/03/19 06:31 Nucleated RBCs 1 /100WBC 07/27/19 16:28 Differential Comment Agrees w/ instrument 08/01/19 06:05 RBC Morphology Normal 08/01/19 06:05 Macrocytosis 1+ 07/27/19 16:28 ESR 12 mm/hr (1-20) 07/28/19 05:45 PT 10.8 sec (9.3-11.0) 07/28/19 05:45 INR 1.1 (0.9-1.1) 07/28/19 05:45 APTT 23.1 sec (21.0-31.4) 07/27/19 16:28 ABG Sample Site Right radial 07/30/19 07:56 ABG pH 7.39 (7.35-7.45) 07/30/19 07:56 ABG pCO2 40 mmHg (34-47) 07/30/19 07:56 ABG pO2 81 mmHg (83-108) L 07/30/19 07:56 ABG HCO3 25 mmol/L (22-28) 07/30/19 07:56 ABG Total CO2 22 mmol/L (22-29) 07/30/19 07:56 ABG O2 Saturation 95 % (94-98) 07/30/19 07:56 ABG Base Excess -0.4 mmol/L (-3-3) 07/30/19 07:56 Oxygen Liter Flow Cancelled 07/29/19 07:55 FiO2 60 % 07/30/19 07:56 Sodium 142 mmol/L (136-145) 08/03/19 06:35 Potassium 3.1 mmol/L (3.5-5.1) L 08/03/19 06:35 Chloride 106 mmol/L (98-107) 08/03/19 06:35 Carbon Dioxide 27.8 mmol/L (21.0-32.0) 08/03/19 06:35 Anion Gap 8.2 mmol/L (3-11) 08/03/19 06:35 BUN 5 mg/dL (7-18) L 08/03/19 06:35 Creatinine 0.80 mg/dL (0.70-1.30) 08/03/19 06:35 Estimated GFR/1.73 m2 >= 60.00 (mL/min/1.73m2) 08/03/19 06:35 Glucose 92 mg/dL (74-106) 08/03/19 06:35 Hemoglobin A1c 5.4 % (3.8-5.6) 07/29/19 06:40 Calcium 8.7 mg/dL (8.5-10.1) 08/03/19 06:35 Phosphorus 3.0 mg/dL (2.6-4.7) 07/27/19 19:30 Magnesium 1.4 mg/dL (1.8-2.4) L 08/03/19 06:35 Total Bilirubin 0.9 mg/dL (0.2-1.0) 08/02/19 06:00 AST 21 U/L (15-37) 08/02/19 06:00 ALT 21 U/L (16-63) 08/02/19 06:00 Alkaline Phosphatase 51 U/L (46-116) 08/02/19 06:00 Ammonia 43 umol/L (11-32) H 08/02/19 06:00 Creatine Kinase 65 U/L (39-308) 07/29/19 06:40 Troponin I < 0.05 ng/Ml (<0.06) 07/28/19 05:45 C-Reactive Protein 7.95 mg/dL (0.0-0.3) H 07/29/19 06:40 Total Protein 6.2 g/dL (6.4-8.2) L 08/02/19 06:00 Albumin 2.3 g/dL (3.4-5.0) L 08/02/19 06:00 Vitamin B12 238 pg/mL (193-986) 07/29/19 06:40 Folate 15.7 ng/mL (8.6-20.0) 07/29/19 06:40 Procalcitonin < 0.1 ng/mL 07/28/19 05:45 TSH 1.95 uIU/mL (0.36-3.74) 07/28/19 05:45 Urine Color Yellow (Yellow) 07/28/19 18:00 Urine Clarity Cloudy (Clear) 07/28/19 18:00 Urine pH 5.5 (5-8) 07/28/19 18:00 Ur Specific [place] 1.025 (1.005-1.025) 07/28/19 18:00 Urine Protein 100 mg/dL (Negative) H 07/28/19 18:00 Urine Ketones Negative mg/dL (Negative) 07/28/19 18:00 Urine Blood Large (Negative) H 07/28/19 18:00 Urine Nitrite Negative (Negative) 07/28/19 18:00 Urine Bilirubin Negative (Negative) 07/28/19 18:00 Urine Urobilinogen 0.2 EU/dL (Up TO 0.2) 07/28/19 18:00 Ur Leukocyte Esterase Trace (Negative) H 07/28/19 18:00 Urine RBC >50 HPF (0-2) H 07/28/19 18:00 Urine WBC 20-50 HPF (0-5) H 07/28/19 18:00 Ur Epithelial Cells Few HPF (Negative) 07/28/19 18:00 Urine Crystals Many uric acid HPF (Negative) 07/28/19 18:00 Urine Bacteria Not Applicable 07/28/19 18:00 Urine Casts Negative LPF (Negative) 07/28/19 18:00 Urine Mucus Negative (Negative) 07/28/19 18:00 Ur Culture Indicated? Yes 07/28/19 18:00 Urine Glucose Negative mg/dL (Negative) 07/28/19 18:00 Urine Opiates Screen Negative (Negative) 07/27/19 17:10 Urine Methadone Screen Negative (Negative) 07/27/19 17:10 Ur Barbiturates Screen Negative (Negative) 07/27/19 17:10 Ur Tricyclics Screen Negative (Negative) 07/27/19 17:10 Ur Amphetamines Screen Negative (Negative) 07/27/19 17:10 U Benzodiazepines Scrn Negative (Negative) 07/27/19 17:10 Urine Cocaine Screen Negative (Negative) 07/27/19 17:10 Ur THC Screen Negative (Negative) 07/27/19 17:10 Ethyl Alcohol < 3.0 mg/dL (<3) 07/27/19 16:28 Coronavirus (PCR) Negative (Negative) 07/28/19 10:45 Path Cons Comment 07/27/19 16:28
[2019-08-03] MEDS: Potassium Chloride 20 MEQ TABCR 40 MEQ PO (14:41)
--- NOTE | 2019-08-03 16:23 | CMPROGNOTE_ITS ---
- If Service Date Differs Date of service: 08/03/19 Time of Service: 16:23 Care Management Progress Note S/O: Rick was lying in bed when CM met with him. He reported that he was feeling much better today, and that, per provider, he will be able to return home tomorrow. CM discussed quitting drinking with Rick, who stated I just need to step up to the plate. CM expressed that there are many resources for him if he is looking for additional support. CM consulted the curriculum coach, who called to talk to Rick over the phone regarding his plan for sobriety. CM will provide him with information and resources that he will be able to access outpatient. CM will continue to follow. A: Rick is a 73 year old male admitted to [facility] on 07/27/19 with Alcohol withdrawal seizure, and aspiration pneumonia currently intubated and being treated with IV abx. P: Anticipate Rick will return home when medically cleared. CM will provide resources for alcohol cessation in the community. Anticipate he will be driven home by family via private vehicle. CM will continue to follow and support discharge planning considerations.
[2019-08-03 18:55] LABS: Bilirubin Negative (Negative); Blood Trace-intact (Negative); Clarity Clear (Clear); Glucose Negative (Negative); Ketones 15 mg/dL (Negative); Leukocyte Esterase Negative (Negative); Nitrite Negative (Negative); Specific Gravity 1.025 (1.005-1.025); Urobilinogen 0.2 EU/dL (Up TO 0.2); pH 7.5 (5-8)
[2019-08-03 19:02] LABS: Bacteria Rare HPF (Negative); C & S Indicated? No; Casts Negative LPF (Negative); Crystals Negative HPF (Negative); Epithelial Cells Negative HPF (Negative); Mucus Negative (Negative); Other Cells Negative (Negative); WBC Negative HPF (0-5)
[2019-08-03] MEDS: Potassium Chloride 10 MEQ TABCR PO (20:47)
[2019-08-04 00:02] VITALS: BP 156/88; PULSE 65; RESP 19; TEMP 37; O2SAT 95
[2019-08-04 04:11] VITALS: BP 187/114; PULSE 60; RESP 20; TEMP 36.8; O2SAT 95
[2019-08-04 04:15] VITALS: BP 180/110
[2019-08-04 06:00] VITALS: BP 170/100
[2019-08-04] MEDS: Carvedilol 3.125 MG TAB PO (06:38)
[2019-08-04] MEDS: Omeprazole 20 MG CAPCR 40 MG PO (06:38)
[2019-08-04] MEDS: hydroCHLOROthiazide 12.5 MG TAB PO ×2 (06:38→09:16)
[2019-08-04 06:44] VITALS: BP 180/110
[2019-08-04 07:35] VITALS: BP 181/104; PULSE 60; RESP 16; TEMP 37; O2SAT 95
--- NOTE | 2019-08-04 08:24 | DSE_ITS ---
Date of service: 08/04/19 Time of Service: 08:26 DS: Diagnosis Discharge Diagnosis (1) Alcohol withdrawal seizure with complication: Status: Resolved Asessment and Plan: Presented with witnessed tonic-clonic seizure with a history hours prior to his seizure of localized motor deficit and speech deficit, intubated for airway protection and subsequent neuroimaging negative for stroke or significant extracranial or intracranial cerebrovascular disease. Initial seizure treated with benzodiazepines and Keppra. Sedated while on the ventilator with transient neuromuscular blockade. No further seizures. He was not placed on any long-term anticonvulsant and had no further seizures. Concern raised of possible aspiration event at time of intubation (initially in the right mainstem, ET tube withdrawn and no further asymmetry in breath sounds or imaging). Nonfocal neurologic exam once he was extubated and awake. (2) Alcoholic encephalopathy: Status: Resolved Asessment and Plan: Heavily sedated while on ventilator then placed on scheduled Serax. Post extubation was lethargic and groggy for about 36 hours and then improvement in mental status. He had modestly elevated ammonia level. He was given lactulose for a few days. Mental status returned to baseline by discharge and no further treatment with benzodiazepines or lactulose for greater than 24 hours prior to discharge. (3) Alcohol withdrawal: Status: Resolved Asessment and Plan: After his presenting seizure he had heavy sedation while intubated and supported on ventilator. Post extubation he had no significant withdrawal symptoms. Discussion was held with him regarding treatment of his alcohol abuse and he declined any medication assisted therapy or referral for outpatient counseling. States that he needs to do this on his own. Knows that he should not drink anymore. (4) Hypotension: Status: Resolved Asessment and Plan: Hypotensive right after intubation requiring pressor support briefly. Postextubation blood pressure steadily peter as documented below. (5) Hypertension: Status: Chronic Asessment and Plan: After initial hypotensive episode, weaned off pressors and over time blood pressure steadily peter. Outpatient medications restarted in addition carvedilol added, losartan dose increased, diuretic dose increased on the day of discharge. He will monitor blood pressure at home with follow-up as an outpatient of any further medication adjustments. (6) Hypokalemia: Status: Acute Asessment and Plan: Potassium level down to 3.12 days prior to discharge. Supplement started and potassium will be followed as an outpatient. (7) Hypomagnesemia: Status: Resolved Asessment and Plan: Corrected with IV supplementation. (8) Aspiration pneumonia: Status: Ruled-out Asessment and Plan: Concern for aspiration at time of intubation. Initially on empiric broad-spectrum antibiotics. Subsequent lung exam and imaging studies did not show pneumonia and antibiotics discontinued. He had no respiratory symptoms during the latter part of his hospitalization. Discharge Plan Disposition Patient Disposition: HOME Condition: Serious Discharge Details Chief Complaint: AMS/LOC Clinical Impression: Seizure Reason For Visit: ALCOHOL WITHDRAWAL SEIZURE Admit Date/Time: 07/27/19 18:57 Admit Provider: Álvaro Roger Attending Provider: Álvaro Roger Primary Care Provider: Jack Reese ED Provider: Denis Meehan Hospital Course Hospital Course: Chief Complaint: seizure Narrative: 73-year-old male with a history of alcoholism, hypertension, hyperlipidemia presented emergency department with complaints of tingling in his right hand and speech disturbance and while patient was being placed into a room he had sudden loss of consciousness with generalized tonic-clonic seizure activity. Because of his lack of responsiveness with a Kyara Coma Scale of 3 and inability to protect his airway patient was emergently intubated with rapid sequence induction with etomidate and rocuronium and use of a video laryngoscope. Patient was subsequently found to have right mainstem bronchus intubation and the ET tube was pulled back appropriately with repeat x-ray confirmation. ER attending physician had obtained information from the patient's girlfriend that he is a heavy drinker of alcohol who recently had cut back his drinking but went on a binge drinking yesterday. According to other family members he has no history of seizure activity. Acute seizure was treated with 2 mg of Ativan IV and subsequently was started on Keppra. He was started on a propofol drip while in the emergency department and subsequently switched to of fentanyl drip and Versed drip because of problems with hypotension on the propofol drip. After admission to the intensive care unit he had further episodes of hypotension that necessitated weaning down his Versed drip and despite IV fluid boluses he required vasopressors including norepinephrine drip. He is now hemodynamically stable. Stat CT scan of the head was performed without contrast to rule out an intracranial hemorrhage. No intracranial pathology was seen. CTA of the head neck was performed and no occlusion or stenosis was found intracranial and no stenosis or occlusion of the cervical vessels was seen. However near complete c onsolidation left lung was seen on CT scan secondary to right mainstem bronchus intubation. Few scattered nonspecific patchy groundglass opacities are seen in the right lung. Post intubation chest x-ray showed endotracheal tube extending in the right mainstem bronchus. Enteric tube was seen to terminate in the inferior border within the stomach. Left lower lobe consolidation with air bronchograms were seen. EKG was performed demonstrating sinus rhythm at a rate 92 bpm with evidence of left atrial enlargement and flattening of ST waves laterally with subtle T wave inversions in V4 through V6. Labs were remarkable for WBC 14,490, no anemia, potassium of 3.2, magnesium of 1.6; troponin levels of 0.05 and 0.06. ABG post intubation and initiation of mechanical ventilation: 7.37/pCO2 50/pO2 126/HCO3 29 on 60% FiO2/TV 430/AC 15/PEEP 5 cm. Patient is now admitted to ICU for treatment of alcohol withdrawal seizures, acute alcohol withdrawal and respiratory failure d/t seizure and decreased LOC. There is question of pneumonia in LLL however because of a R. mainstem bronchus intubation, much of the LLL consolidation was felt to be d/t atelectasis. Repeat CXR after repositioning of ET showed improvement in aeration of LLL. His leukocytosis was felt to be secondary to his seizure. Please see above discharge diagnoses for hospital course by problem. Medication changes: Hydrochlorothiazide dose doubled, losartan dose doubled, carvedilol and potassium chloride new medications added Home Meds and New Rx's Prescriptions: New losartan 50 mg Tablet 50 mg PO DAILY Qty: 90 RF: 3 carvedilol 3.125 mg Tablet 3.125 mg PO BID Qty: 90 RF: 3 hydrochlorothiazide 25 mg Tablet 25 mg PO DAILY Qty: 90 RF: 3 potassium chloride [Klor-Con M10] 10 mEq Tablet,Er Particles/Crystals 10 meq PO BID Qty: 120 RF: 3 Continued omeprazole 40 MG capsule,delayed release(DR/EC) 40 mg PO DAILY@0730 Qty: 30 RF: 5 Discontinued ranitidine HCl 300 MG tablet 300 mg PO HS Qty: 30 RF: 2 losartan 25 mg tablet 25 mg PO DAILY RF: 0 hydrochlorothiazide 12.5 mg tablet 12.5 mg PO DAILY RF: 0 Discharge Instructions Instructions: Abuse of Alcohol (DC), Alcohol Withdrawal (DC), Alcohol Depende nce (DC) Additional Instructions: Please keep track of your blood pressures. Note the changes in your medication?hydrochlorothiazide and losartan doses have both been doubled. You have new prescriptions for carvedilol and potassium. Avoid all alcohol. Referrals: Jack Reese MD [Primary Care Provider] - 08/12/19 2:40 pm (There will be a phone call visit August 11 at 2:40) Activity:: Activity as Tolerated Equipment/Supplies:: No Equipment Needed Diet:: As Tolerated Discharge Orders Discharge Orders: Discharge Order (Routine); Ordered 08/04/19 Ordered By: Jack Reese DS: Summary Status at Discharge Functional status at discharge: independent ambulation Overall status at discharge: patient is progressing back to baseline Mental Status: mental status grossly normal Speech and Movement: speech and movement normal Mood: congruent mood Affect: normal affect Time Spent with Patient providing and/or coordinating discharge services: Greater than 30 minutes Exam Narrative Exam Narrative: On the morning of discharge she is hypertensive with blood pressure 180/100 initially but awake alert oriented x4. No conjunctival injection or jaundice. No neck vein distention. Lungs clear. Regular heart rhythm no murmur S3 or S4. Abdomen obese soft nontender with normal bowel sounds. He has no pitting edema in the lower extremities. No rest or intention tremor. Symmetric movement of all extremities. He walks independently. Psych Mental Status: mental status grossly normal Speech and Movement: speech and movement normal Mood: congruent mood Affect: normal affect DS: Data Vitals/I&O Vitals and I&O: Vital Signs Temperature 36.8 C 08/04/19 04:11 Temperature Source Tympanic 08/04/19 04:11 Pulse 60 08/04/19 04:11 Pulse Rhythm Regular 08/04/19 04:11 Pulse 75 08/02/19 15:00 Respiratory Rate 20 08/04/19 04:11 Respiratory Effort Non-Labored 08/04/19 04:11 Respiratory Depth Normal 08/04/19 04:11 Respiratory Pattern Normal 08/04/19 04:11 Blood Pressure 180/110 H 08/04/19 06:44 Blood Pressure Mean 116 08/02/19 14:05 Blood Pressure Position Supine 08/02/19 11:30 Pulse Oximetry 95 08/04/19 04:11 Respiratory End-tidal CO2 36 07/31/19 10:01 Oxygen Delivery Method Room Air 08/04/19 04:11 Oxygen Flow Rate 0 08/04/19 04:11 Fraction of Inspired Oxygen (FIO2) 30 07/31/19 10:15 Pain Level 0 08/03/19 15:30 Comment 08/04/19 04:15 Intake & Output 08/03/19 08/03/19 08/04/19 11:59 23:59 11:59 Intake Total 360 / 700 340 / 700 200 / 200 Output Total 1000 / 0 1050 / 2050 802 / 802 Balance -640 / -1350 -710 / -1350 -602 / -602 Weight 105.1 kg Intake: Oral 360 / 700 340 / 700 200 / 200 Output: Urine 1000 / 0 1050 / 0 802 / 802 Other: Urine Color Yellow Yellow Yellow Urine Appearance Clear Clear Clear Urine Odor None None None Comment small amount in toilet, small inct. Urgency to toilet. pt voiding every 5-10 minutes. urgency and frequency. bladder scanned for 1400 for 180. Stool Size Moderate Stool Characteristics Liquid Voiding Methods Toilet Urinal Urinal Incontinent Incontinent Data Completed and Pending Labs on day of discharge: Labs from last 24 hours 08/03/19 18:30 Urine Color Yellow Urine Clarity Clear Urine pH 7.5 Ur Specific [place] 1.025 Urine Protein Negative Urine Ketones 15 H Urine Blood Trace-intact H Urine Nitrite Negative Urine Bilirubin Negative Urine Urobilinogen 0.2 Ur Leukocyte Esterase Negative Urine RBC 3-5 H Urine WBC Negative Ur Epithelial Cells Negative Urine Crystals Negative Urine Bacteria Rare Urine Casts Negative Urine Mucus Negative Urine Other Negative Ur Culture Indicated? No Urine Glucose Negative CT scan of brain without infarct. CT angiography with no significant intracranial or extracranial vascular stenoses. Echocardiogram normal LV and RV function. Mild dilatation of the aortic root at 4.2 cm and mild dilatation of the ascending order at 3.7 cm. Urine and blood cultures negative. Sputum culture normal lasha. [facility] Medical History Dyslipidemia Dysphagia Heart burn Hx of adenomatous polyp of colon Hypertension Obesity (BMI 30.0-34.9) Surgical History Colonoscopy - MAC 2011-nl EGD - MAC (05/19/17) Social History (Updated 07/28/19 @ 01:21 by Álvaro Roger) Smoking/Tobacco Use Status: Current-Occasional Alcohol Intake: current Drug use: Never
[2019-08-04] MEDS: Potassium Chloride 10 MEQ TABCR PO (08:25)
[2019-08-04] MEDS: Multivitamin TAB 1 TAB PO (08:25)
[2019-08-04] MEDS: Cyanocobalamin 500 MCG TAB 1000 MCG NG (08:26)
[2019-08-04] MEDS: Folic Acid 1 MG TAB PO (08:26)
[2019-08-04] MEDS: Magnesium Oxide 400 MG TAB PO (08:26)
[2019-08-04] MEDS: Thiamine 100 MG TAB PO (08:26)
[2019-08-04] MEDS: Losartan 50 MG TAB PO (08:26)
--- NOTE | 2019-08-04 08:59 | OT.INDS ---
Date of service: 08/04/19 Time of Service: 08:40 Occupational Therapy Notes Occupational Therapy Inpatient Discharge Summary Date: 08/04/19 Dates of Service: 08/03/19-08/04/19 Referring Doctor: Joie Vieira NP OT Orders: Non-Urgent Precautions: Full, Standard PATIENT PROFILE/ADMITTING DIAGNOSIS: Pt is a 73-year-old male who presented to the ER on 07/27/2019 with c/o tingling in the (R) hand/UE and presentation of speech disturbance that was followed by an eventual sudden loss of consciousness and seizure seizure activity. Pt underwent intubation on admission and pt was transitioned to the ICU. Patient was medically monitored for diagnosis with alcohol withdrawal with seizure, acute respiratory failure hypotension, alcoholic encephalopathy and delirium. Past Medical History: Medical History Dyslipidemia Dysphagia Heart burn Hx of adenomatous polyp of colon Hypertension Obesity (BMI 30.0-34.9) Surgical History Colonoscopy - [facility] 2010-nl EGD - [facility] (05/19/17) Social History/Home Situation: Pt lives in [place] with his girlfriend. He reports that they live in a split level home that has 22 steep stairs to get from the basement to the 2nd floor. He states that they have a chair lift. Pt is (I) at his baseline level of function. They have a walk in shower with no seat which OT recommends would benefit pts safety. Pt drives (I), he (A) with cooking, meal prep and grocery shopping which he states I push the cart. He also notes that his laundry is on the top floor. His bedroom to the bathroom is connected and he reports 5-10 feet away from the side of the bed. His girlfriend works at home 4 hours a day and is there to (A) as needed. He has a camp in [place] that he enjoys spending time at. 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 He has a dog and a cat. He states that he is involved more with the dog and likes to take it for walks. He also reports that during the day he likes to do wood and be outside. He can drive around the back side of his home and get to the second floor. This decreases the need to go up and down the stairs. He has a FWW/cane at home. He does not typically use an assistive device for functional mobility at baseline. Equipment owned/DME: Chair lift, grab bars, FWW, cane SUBJECTIVE: Pt was sitting in chair when OT arrived. He reports that he is so glad to be going home today. He states that he is going through some tough times with his marriage and that he has a drinking problem. He also reports that with softball season being put on hold this has limited his occupational activities that he performs. He states, I really have a lot going on but I'm working on it. He is agreeable to OT session and states that the plan is for him to leave this morning. OBJECTIVE: General Observation: Pleasant and sitting in chair, no IV connected but placed in (L) UE. ROM: RUE AROM WFL L UE AROM WFL STRENGTH: RUE 5/5 throughout globally LUE 5/5 throughout globally SENSATION: Intact to (B) UE FUNCTIONAL MOBILITY/ADLS: Transfers with FWW at this time Sit-Stand (I) Stand-sit (I) Chair to Bed (S) Bed to Chair (S) BATHING Standing at sink (I) with washing (B) hands, face and UE. Denies performance of the rest of bathing routine reporting that he will perform this when he returns home. DRESSING Sitting on side of the bed- pt was able to (I) don and doff (B) socks, shoes, underwear and pants without LOB. Standing he was able to don t-shirt with ideal technique and no vc or (A) provided. He had slight difficulty with don and doffing (B) shoes which OT and pt discuss use of shoe horn. He reports that he has one at home that he uses all the time. He denies the need for one at this time. GROOMING NT TOILETING with supervision for functional mobility pt was able to perform (I) and with ideal technique. EATING Sitting in chair (I) with good gross and fine motor skills required for performance. BALANCE: Static sitting Normal Dynamic Sitting Fair-Good Static Standing Normal Dynamic Standing NT ASSESSMENT: Patient is a 73-year-old male referred to occupational therapy services with diagnosis of alcohol withdrawal with seizure, acute respiratory failure hypotension, alcoholic encephalopathy and delirium. Pt was seen for 2 skilled OT sessions. He was able to demonstrate his ADLs with decreased LOB today. He is receptive to slowing down his routine to decrease fall risk. Functionally pt was able to perform his dressing and bathing (I). He performed his functional mobility without use of FWW and is presenting closer to his baseline level of function. Based on pts functional (I) and plan to discharge pt home today, OT will formally discharge pt from skilled OT services at this time. GOALS 1. Transfers with FWW (I)- met 2. Dressing sitting in chair (I) with don and doffing (B) socks without LOB, (I) with don and doffing pants and shirt- met 3. Bathing Sitting in chair (I)- met 4. Toileting on toilet (I)- met with (S) 5. Eating (I)- met 6. Grooming standing at sink (I) with brushing teeth with use of FWW- pt denies at todays session PLAN OF CARE/TREATMENT PLAN: Plan is for pt to be discharged home today when medically cleared per MD. DISCHARGE RECOMMENDATIONS Home when medically cleared per MD. OT recommends a shower seat to decrease pts fall risk in bathing routine. TREATMENT TIME/MINUTES/CODES 53856, 15 minutes (08:40) LATASHA [facility]
--- NOTE | 2019-08-04 09:42 | PT.INDS ---
Date of service: 08/04/19 Time of Service: 09:42 PT Notes Visit Reasons: ALCOHOL WITHDRAWAL SEIZURE Inpatient Physical Therapy Discharge Summary Dates: August 04, 2019 Dates of Service: 08/01/19-08/04/19 SUBJECTIVE: Rick reports that he is feeling much better and is ready to return home. He notes continued LBP however is going to take it a day at a time and work to get stronger and stay healthy. OBJECTIVE: Pain: 06/21 LBP ROM: L UE: WFL R UE: WFL L LE: WFL R LE: WFL STRENGTH: L UE: WFL R UE: WFL L LE: WFL R LE: WFL BED MOBILITY/TRANSFERS: Supine-sit I Sit-supine I Sit-stand I Stand-sit I Bed-Chair I Chair-bed I GAIT: I with use of FWW 400' BALANCE: Static sitting Good Dynamic sitting Good Static standing Good Dynamic standing Good Assessment: Rick overall has made great gains with his level of independence with all functional transfers. Continues to require use of assistive device for ambulation however improved functional endurance and stamina noted. Rick to be discharged via MD order home today. Goals: Goals X1 week 1. Supine-Sit independent (MET) 2. Sit-Supine independent (MET) 3. Sit-Stand independent (MET) 4. Stand-Sit independent (MET) 5. Bed-Chair independent (MET) 6. Chair-Bed independent (MET) 7. Independent gait on level surface with use of least restrictive device for at least 300 feet without report of pain nor dyspnea (MET) 8. Independent with home exercise program (MET) 9. Good static and dynamic standing balance/tolerance (MET) DISCHARGE PLAN/RECOMMENDATIONS: Patient is to be discharged at this time from skilled PT services home via MD order. Treatment: 55069 15 minutes 9:15 AM LOUISE Ortega [facility]
--- NOTE | 2019-08-04 16:00 | PDOC.CMDIS ---
- If Service Date Differs Date of service: 08/04/19 Time of Service: 16:00 LACE Index Scoring Tool - Questions: Length of Stay (in days): 7 - 13 Acuity (Admit via E.D.?): Yes E.D. Visits: 1 - Answers: Total Score: 9 Risk of Readmission: Low Risk Care Management Discharge Reason for Hospitalization: Alcohol withdrawal seizure Discharge Plan: Rick will return home with his girlfriend, Shira, who will transport him via private vehicle. CM provided resources for treatment in order to quit drinking. He is agreeable to seeking help at this time. He will follow up with his PCP and discharge plan of care. He is happy to be returning home. Patient/Family Education Needs: Review discharge instructions regarding activity levels and medications, discussion of self care needs including ask me three
== END 2019-08-04 10:07 | disposition home or self-care (01) | DRG 896 ==
LOC: ER 20:29 → ICU 20:41 → MS 08-02 16:22 → ICU 08-05 11:23
PROVIDERS: Family Medicine; Internal Medicine; Physician Assistant; Admitting Provider Internal Medicine; Emergency Provider Student in an Organized Health Care Education/Training Program; PCP Internal Medicine; Visit Provider Internal Medicine
DX: F10.231 Alcohol dependence with withdrawal delirium (principal); J96.00 Acute respiratory failure, unspecified whether with hypoxia or hypercapnia; E72.20 Disorder of urea cycle metabolism, unspecified; R56.9 Unspecified convulsions; G31.2 Degeneration of nervous system due to alcohol; E86.1 Hypovolemia; E87.6 Hypokalemia; E83.42 Hypomagnesemia; I95.89 Other hypotension; E87.79 Other fluid overload; I10 Essential (primary) hypertension; E78.5 Hyperlipidemia, unspecified; R40.2432 Glasgow coma scale score 3-8, at arrival to emergency department; K21.9 Gastro-esophageal reflux disease without esophagitis; Z78.1 Physical restraint status
CPT/HCPCS: 31500; 36415; 70496; 70498; 71045; 80048; 80053; 80307; 82550; 82805; 84145; 85652; 87040; 93005; 94640; 95822; 96374; 96375; 96376; 97110; 97163; 97165; 97530; 97535; 99232; 99233; 99239; 99291; J1650; U0003; 36600; 70450; 76705; 80320; 81003; 81015; 82140; 82607; 82746; 83036; 83735; 84100; 84443; 84484; 85025; 85610; 85730; 86140; 87070; 87086; 87205; 93010; 93306; 94002; 94003; 95816; J0610; J1940; J1941; J1953; J2060; J2250; J2270; J2543; J3010; J3360; J3420; J3475; J3480; J3490

== ENCOUNTER → 2019-08-03 13:35 | Outpatient (BNVA) | payer MEDICARE, BC, SELFPAY | PROVIDERS: PCP Internal Medicine; Referring Provider Internal Medicine; Visit Provider Psychiatry & Neurology Neurology | DX: R69 Illness, unspecified (principal) ==

== ENCOUNTER 2019-08-12 16:20 | Outpatient (REF) | payer MEDICARE, BC, SELFPAY ==
[2019-08-12 21:01] LABS: Anion Gap 10.4 mmol/L (3-11); BUN 20 mg/dL (7-18); CO2 28.6 mmol/L (21.0-32.0); CREATININE 1.18 mg/dL (0.70-1.30); Calcium 9.3 mg/dL (8.5-10.1); Chloride 99 mmol/L (98-107); Glucose 87 mg/dL (74-106); Potassium 3.4 mmol/L (3.5-5.1); Sodium 138 mmol/L (136-145); Vitamin B12 322 pg/mL (193-986)
== END 2019-08-12 16:40 ==
LOC: NCHCN 16:20
PROVIDERS: PCP Internal Medicine; Visit Provider Internal Medicine
DX: I10 Essential (primary) hypertension (principal); F10.21 Alcohol dependence, in remission; R20.2 Paresthesia of skin; M25.511 Pain in right shoulder; M72.0 Palmar fascial fibromatosis [Dupuytren]
CPT/HCPCS: 80048; 82607

== ENCOUNTER 2019-09-08 09:03 | Inpatient (IN) | payer MEDICARE, BC, SELFPAY ==
[2019-09-08] VITALS (8 sets, daily range): BP systolic 129–166; BP diastolic 76–90; PULSE 65–75; RESP 16–20; TEMP 36.1–37.8; O2SAT 92–96
--- NOTE | 2019-09-08 09:24 | W.ED.GENAD ---
Discharge Plan Disposition Patient Disposition: [facility] INPATIENT Condition: Stable Discharge Details Chief Complaint: Abd Prob Clinical Impression: Acute diverticulitis, Perforation bowel Admit Date/Time: 09/08/19 11:57 Admit Provider: Shelley Bray Attending Provider: Shelley Bray Primary Care Provider: Jack Reese ED Provider: Barb Giron Hospital Course Hospital Course: The patient was admitted on IV Cipro/Flagyl and kept NPO. The day after admission he noted significantly improved pain. His WBC had normalized. His diet was advanced throughout the day without worsening of symptoms. He was passing flatus. 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 The patient declined follow up as his symptoms were not bothersome enough to investigate. He will follow up with Dr. Bray. Discharge Instructions Instructions: Diverticulitis (DC), Low Fiber Diet (DC), Perforated Bowel (DC) Additional Instructions: Call for worsening abdominal pain, fever or lack of bowel activity Keep diet light/low fiber until seen for follow up appointment Take a probiotic or Kefir while on the antibiotics Do not take Zofran along with the ciprofloxacin Okay to use Tylenol alternating with ibuprofen (or your Naproxen) for pain Forms: Nursing Discharge Form Referrals: Shelley Bray MD [ [facility] STAFF PHYSICIAN] - 09/17/19 8:30 am (Return next week for a recheck) Jack Reese MD [Primary Care Provider] - 09/21/19 8:15 am Discharge Data Discharge Date/Time-TO BE ENTERED AT DEPARTURE: 09/08/19 12:45 Medical Decision Making 0920 -- 73-year-old male with a history of hypertension, hyperlipidemia, GERD, migraine, obesity, former alcohol abuse with recent alcohol withdrawal seizure requiring intubation 1 month ago here who presents with right lower quadrant abdominal pain and vomiting since last night. Blood pressure mildly hypertensive. Patient appears uncomfortable but nontoxic. He has diffuse abdominal tenderness but worse in right lower quadrant. Differential diagnosis includes acute appendicitis, bowel obstruction, hernia, diverticulitis, colitis, gastroenteritis. Will place an IV, bolus IV fluids, screening labs, CT abdomen pelvis give a dose of morphine and Zofran and reassess. 1130 --labs reviewed. White blood cell count 12. Potassium 2.9. Likely due to hydrochlorothiazide. P.o. and IV potassium ordered. Patient reassessed -states his pain is the same. He is declining any further pain medication. He appears in no acute distress. Denies nausea. CT reviewed -notes sigmoid diverticulitis with perforation. Case discussed with surgery who accepts patient for admission. Will place order for antibiotics and see patient on the floor. Case discussed with and pt who was notified of results and plan. Medical Records Medical records reviewed: Yes I reviewed the patient's medical records. Imaging Data Radiologic Study: Radiologist's impression: CT ABDOMEN PELVIS W CLINICAL HISTORY: RLQ abd pain, r/o appendicitis. TECHNIQUE: Imaging Protocol: Axial computed tomography images with coronal and sagittal reformatted images were created and reviewed CONTRAST MATERIAL: Intravenous: Omnipaque 350 Contrast volume:100 ml Oral: / no COMPARISON: CT ABD PELVIS WITH CONTRAST from 06/04/2013 CR,XR XR PORTABLE CHEST AP POST LINE from 07/27/[address] BRAIN NECK CTA from 07/27/2019 CR,XR XR PORTABLE CHEST AP POST LINE from 07/27/2019 CR XR PORTABLE CHEST AP POST LINE from 07/28/2019 CR XR PORTABLE CHEST AP POST LINE from 07/29/2019 CR XR PORTABLE CHEST AP POST LINE from 07/29/2019 FINDINGS: ABDOMEN: Lung Bases: Basilar scarring versus atelectasis. Calcified pleural plaques. Liver: Mild fatty infiltration.. No measurable mass. Gallbladder and biliary tract: No radiodense calculus or dilation. Pancreas: Normal density, no abnormal calcifications or inflammatory process. Spleen: Normal. Kidneys: Normal size, contour and axis. No radiodense stones or obstructive uropathy. No masses seen. Retroaortic left renal vein. Adrenal glands: No masses seen. Abdominal Aorta: Abdominal portion non-dilated. Calcified. PELVIS: Bladder: Minimally distended. Question of wall thickening.. Bowel: There is extensive diverticulosis, greatest in the sigmoid region. The sigmoid deviates toward the right. There is wall thickening and inflammation stranding in the surrounding fat at the sigmoid in the right lower quadrant, consistent with diverticulitis. There is no evidence abscess. There are a few air bubbles should be outside the lumen, consistent with perforation. The appendix appears normal. There is no small bowel dilatation. Bones: There is a mild compression fracture of the superior endplate of T11 and a moderate to severe compression fracture T12. Reproductive organs: Within normal limits. Lymph nodes: Unremarkable. Impression: Sigmoid diverticulitis with perforation. No evidence of abscess.. Lab Data Lab results reviewed: Yes I reviewed the patient's lab results. HPI General Mode of arrival: ambulatory. Date/Time Provider Initiated Documentation: 09/08/19 09:19. Limitations to Documentation: no limitations. Information obtained by: patient. HPI Narrative: Patient is a 73-year-old male with a history of hypertension, hyperlipidemia, GERD, former daily alcohol abuse with recent history of alcohol withdrawal seizure requiring intubation 1 month ago who presents with right lower quadrant abdominal pain since last night and vomiting 4 times since this morning. Vomit mainly looks like bile. He states his pain feels crampy and is currently 5/10. Pain is worse with any movement and when laying on right side. Pain improved when remaining still. No relief with Tums. Last bowel movement 3 days ago which is unusual for him. Denies any hematemesis, melena or hematochezia. Denies any fever, chest pain, shortness of breath, urinary symptoms, recent travel, recent exposure to coronavirus. He was recently tested for coronavirus here last month and was negative. Related Data Home Medications Medication Instructions Recorded Confirmed carvedilol 3.125 mg PO BID #90 tab 08/04/19 09/08/19 hydrochlorothiazide 25 mg PO DAILY #90 tab 08/04/19 09/08/19 potassium chloride [Klor-Con M10] 10 meq PO BID #120 tab 08/04/19 09/08/19 lorazepam 1 mg PO HS PRN 09/08/19 09/08/19 losartan 100 mg PO DAILY 09/08/19 09/08/19 methocarbamol 500 mg PO BID PRN 09/08/19 09/08/19 naproxen 500 mg PO BID 09/08/19 09/08/19 omeprazole 40 mg PO DAILY 09/08/19 09/08/19 ondansetron HCl [Zofran] 8 mg PO TID PRN 09/08/19 09/08/19 potassium chloride 20 meq PO BID 09/08/19 09/08/19 sertraline 100 mg PO DAILY 09/08/19 09/08/19 ciprofloxacin HCl [Cipro] 500 mg PO BID #14 tab 09/10/19 metronidazole 500 mg PO Q8H #21 tab 09/10/19 Previous Rx's Medication Instructions Recorded carvedilol 3.125 mg PO BID #90 tab 08/04/19 hydrochlorothiazide 25 mg PO DAILY #90 tab 08/04/19 potassium chloride [Klor-Con M10] 10 meq PO BID #120 tab 08/04/19 ciprofloxacin HCl [Cipro] 500 mg PO BID #14 tab 09/10/19 metronidazole 500 mg PO Q8H #21 tab 09/10/19 Allergies Allergy/AdvReac Type Severity Reaction Status Date / Time No Known Allergies Allergy Unverified 09/08/19 09:12 General Stated Complaint: Abd Prob TIMMY: 3 Review of Systems All systems reviewed & are unremarkable except as noted in HPI and below Constitutional Constitutional: Reports as per HPI, Denies chills and Denies fever(s) Eyes Eyes: Denies blurry vision ENT Ears, Nose, Mouth, and Throat: Denies dizziness, Denies sore throat and Denies throat swelling Cardiovascular Cardiovascular: Denies chest pain and Denies dyspnea Respiratory Respiratory: Denies cough and Denies dyspnea Gastrointestinal Gastrointestinal: Reports abdominal pain, Denies diarrhea and Reports vomiting Genitourinary Genitourinary: Denies hematuria and Denies dysuria Musculoskeletal Musculoskeletal: Denies back pain and Denies numbness Integumentary/Breasts Skin/Breast: Denies lesions and Denies rash Neurologic Neurologic: Denies dizziness, Denies localized weakness and Denies numbness Allergic/Immunologic Allergic/Immunologic: Denies throat swelling [facility] Medical History Alcohol withdrawal (Resolved) Alcohol withdrawal seizure with complication (Resolved) Alcoholic encephalopathy (Resolved) Aspiration pneumonia (Resolved) Delirium (Inactive) Dyslipidemia Hx of adenomatous polyp of colon Hypertension (Chronic) Obesity (BMI 30.0-34.9) Surgical History Colonoscopy - MAC 2010-nl EGD - MAC (05/19/17) History of tonsillectomy (Chronic) Social History Smoking/Tobacco Use Status: Current-Occasional Alcohol Intake: former Year quit: 2019 Drug use: Never Substance use type: does not use Do you feel safe at home: Yes Exam Const General: cooperative, uncomfortable and no acute distress Orientation: alert, awake and oriented x3 HENMT Head: normal to inspection Face and sinus: normal facial exam Eyes General: appearance normal, both eyes and all related structures Pupils: PERRL EOM: EOM intact bilaterally Neck Neck: normal visual inspection and No submandibular swelling Lymphatic: no lymphadenopathy noted Chest Chest: normal inspection of the chest and no tenderness Resp Effort & Inspection: normal respiratory effort and able to speak in complete sentences Auscultation: clear to auscultation bilaterally Cardio Rate: regular rate Rhythm: regular rhythm GI Inspection: normal to inspection Palpation: soft, not firm, not rigid and tender (diffuse, worse in lower abdomen; much worse in RLQ) in the RLQ Auscultation: normal bowel sounds Male General Exam: Yes normal external exam Penis: normal penis Scrotum: scrotum normal Skin General skin exam: no rashes or lesions noted Neuro General: patient alert, patient awake and patient oriented x3 Cognition: normal cognition Speech: speech normal Motor: muscle tone normal throughout Sensory Exam: no sensory deficits noted Extrem General: normal to inspection, full ROM, capillary refill normal, no calf tenderness bilaterally and no edema Psych Appearance: grossly normal Mental Status: mental status grossly normal Speech and Movement: speech and movement normal Affect: normal affect Course Vital Signs Vital signs: Vital Signs Temperature 97.9 F 09/08/19 09:07 Pulse 75 09/08/19 09:07 Respiratory Rate 16 09/08/19 09:07 Blood Pressure 166/87 H 09/08/19 09:07 Pulse Oximetry 96 09/08/19 09:07 Temperature 97.9 F 09/08/19 09:07 Temperature Source Skin 09/08/19 09:07 Pulse 75 09/08/19 09:07 Respiratory Rate 16 09/08/19 09:07 Blood Pressure 166/87 H 09/08/19 09:07 Blood Pressure Position Sitting 09/08/19 09:07 Pulse Oximetry 96 09/08/19 09:07 Oxygen Delivery Method Room Air 09/08/19 09:07 Oxygen Flow Rate 0 09/08/19 09:07 Pain Level 5 09/08/19 09:07
--- NOTE | 2019-09-08 09:30 | DI.CT_ITS ---
EXAM: CT ABDOMEN PELVIS W CLINICAL HISTORY: RLQ abd pain, r/o appendicitis. TECHNIQUE: Imaging Protocol: Axial computed tomography images with coronal and sagittal reformatted images were created and reviewed CONTRAST MATERIAL: Intravenous: Omnipaque 350 Contrast volume:100 ml Oral: / no COMPARISON: CT ABD PELVIS WITH CONTRAST from 06/04/2013 CR,XR XR PORTABLE CHEST AP POST LINE from 07/27/[address] BRAIN NECK CTA from 07/27/2019 CR,XR XR PORTABLE CHEST AP POST LINE from 07/27/2019 CR XR PORTABLE CHEST AP POST LINE from 07/28/2019 CR XR PORTABLE CHEST AP POST LINE from 07/29/2019 CR XR PORTABLE CHEST AP POST LINE from 07/29/2019 FINDINGS: ABDOMEN: Lung Bases: Basilar scarring versus atelectasis. Calcified pleural plaques. Liver: Mild fatty infiltration.. No measurable mass. Gallbladder and biliary tract: No radiodense calculus or dilation. Pancreas: Normal density, no abnormal calcifications or inflammatory process. Spleen: Normal. Kidneys: Normal size, contour and axis. No radiodense stones or obstructive uropathy. No masses seen. Retroaortic left renal vein. Adrenal glands: No masses seen. Abdominal Aorta: Abdominal portion non-dilated. Calcified. PELVIS: Bladder: Minimally distended. Question of wall thickening.. Bowel: There is extensive diverticulosis, greatest in the sigmoid region. The sigmoid deviates towar d the right. There is wall thickening and inflammation stranding in the surrounding fat at the sigmo id in the right lower quadrant, consistent with diverticulitis. There is no evidence abscess. There are a few air bubbles should be outside the lumen, consistent with perforation. The appendix appear s normal. There is no small bowel dilatation. Bones: There is a mild compression fracture of the superior endplate of T11 and a moderate to severe compression fracture T12. Reproductive organs: Within normal limits. Lymph nodes: Unremarkable. Impression: Sigmoid diverticulitis with perforation. No evidence of abscess.. RADIATION DOSE DELIVERED: 937.04mGy.cm Total DLP DATA REPOSITORY: All CT scans at this facility are submitted to the National Radiology Data Registry (NRDR) Dose Index Registry (DIR) with the [employer] ([employer]). RADIATION OPTIMIZATION: All CT scans at this facility use at least one of these dose optimization te chniques: automated exposure control; mA and/or kV adjustment per patient size (includes targeted exa ms where dose is matched to clinical indication); or iterative reconstruction.
[2019-09-08] MEDS: Normal Saline 1,000 ML 1000 ML IV (09:53)
[2019-09-08] MEDS: Normal Saline Flush 10 ML SYR IVP ×2 (09:54→13:45)
[2019-09-08] MEDS: Ondansetron 4 MG/2 ML VIAL IVP (09:54)
[2019-09-08 09:56] LABS: Abs Immature Grans 0.04 k/cumm (0.0-0.09); Absolute Basophil Count 0.02 k/cumm (0.0-0.2); Absolute Monocyte Count 0.83 k/cumm (0.11-0.7); Absolute Neutrophil Count 12.93 k/cumm (1.2-6.7); Basophils % 0.1; HCT 41.8 % (40.0-50.0); HGB 14.3 g/dL (13.5-17.5); Immature Grans % 0.3 %; Lymphocytes % 10.4; Mean Corp. HGB Concentration 34.2 g/dL (32.0-36.0); Mean Corpuscular Hemoglobin 30.4 pg (27.0-33.0); Mean Corpuscular Volume 88.9 fL (80-95); Mean Platelet Volume 10.4 fL (8.0-11.0); Monocytes % 5.4; Neutrophils % 83.8; Platelet Count 304 x1000/uL (130-400); RBC Distribution Width 13.7 % (11.8-14.1); White Blood Cell Count 15.43 k/cumm (4.4-10.8)
[2019-09-08 10:08] LABS: ALT 26 U/L (16-63); AST 16 U/L (15-37); Albumin 3.4 g/dL (3.4-5.0); Alkaline Phosphatase 87 U/L (46-116); Anion Gap 7.1 mmol/L (3-11); BUN 17 mg/dL (7-18); Bilirubin, Total 1.3 mg/dL (0.2-1.0); CO2 31.9 mmol/L (21.0-32.0); CREATININE 0.98 mg/dL (0.70-1.30); Calcium 8.8 mg/dL (8.5-10.1); Chloride 100 mmol/L (98-107); Glucose 138 mg/dL (74-106); Lipase 44 U/L (73-393); Sodium 139 mmol/L (136-145); Total Protein 7.5 g/dL (6.4-8.2)
[2019-09-08 10:09] LABS: Potassium 2.9 mmol/L (3.5-5.1)
[2019-09-08] MEDS: Potassium Chloride 20 MEQ TABCR 40 MEQ PO (10:43)
[2019-09-08] MEDS: POTASSIUM CHLORIDE 20 MEQ/100 ML BAG 50 MEQ IVPB (10:44)
[2019-09-08] MEDS: Omnipaque 350 MG/ML 100 ML BTL IJ (11:12)
[2019-09-08] MEDS: Normal Saline - Diluent 50 ML VIAL IV (11:13)
[2019-09-08] MEDS: Lactated Ringers 1,000 ML 125 ML IV (12:20)
[2019-09-08] MEDS: Pantoprazole 40 MG VIAL IVP (13:42)
--- NOTE | 2019-09-08 14:12 | W.PM.HP.N ---
Date of service: 09/08/19 Time of Service: 14:13 Assessment and Plan Assessment and plan (1) Hypertension: Status: Chronic Assessment and plan: A\\ Well controlled Hypertension P\\ Continue po medications Qualifiers: Hypertension type: essential hypertension Qualified Code(s): I10 - Essential (primary) hypertension (2) Acute diverticulitis: Status: Acute Assessment and plan: A\\ Sigmoid Diverticulitis with microperforation P\\ 1. IV fluids 2. IV antibiotics 3. Bowel rest 4. DVT prophilaxis with Lovenox and SCD's 5. Activity: up ad benedict (3) Hypokalemia: Status: Acute Assessment and plan: P\\ Continue with Home doses and supplement as needed Re-check potassium (4) Numbness and tingling in both hands: Status: Acute Assessment and plan: A\\ intermittent numbness and tingling both hands intermittent buzzing in the ears as well as intermittent visual changes P\\ Check B12 Check Mag Re-check potassium Consult Dr. Chatterjee History of Present Illness History of Present Illness Chief Complaint: Abdominal pain Consults Consult date: 09/08/19 Requesting physician: Barb Grion Narrative: Patient is a 73-year-old male with a history of hypertension, hyperlipidemia, GERD, former daily alcohol abuse with recent history of alcohol withdrawal seizure requiring intubation 1 month ago who presents with right lower quadrant abdominal pain since last night and vomiting 4 times since this morning. Vomit mainly looks like bile. He states his pain feels crampy and is currently 5/10. Pain is worse with any movement and when laying on right side. Pain improved when remaining still. No relief with Tums. Last bowel movement 3 days ago which is unusual for him. Denies any hematemesis, melena or hematochezia. Denies any fever, chest pain, shortness of breath, urinary symptoms, recent travel, recent exposure to coronavirus. He was recently tested for coronavirus here last month and was negative. Labs showed an elevated WBC count and a low Potassium CT scan showed Diverticulitis and microperforation. (CT scan reviewed by me) FINDINGS: ABDOMEN: Lung Bases: Basilar scarring versus atelectasis. Calcified pleural plaques. Liver: Mild fatty infiltration.. No measurable mass. Gallbladder and biliary tract: No radiodense calculus or dilation. Pancreas: Normal density, no abnormal calcifications or inflammatory process. Spleen: Normal. Kidneys: Normal size, contour and axis. No radiodense stones or obstructive uropathy. No masses seen. Retroaortic left renal vein. Adrenal glands: No masses seen. Abdominal Aorta: Abdominal portion non-dilated. Calcified. PELVIS: Bladder: Minimally distended. Question of wall thickening.. Bowel: There is extensive diverticulosis, greatest in the sigmoid region. The sigmoid deviates toward the right. There is wall thickening and inflammation stranding in the surrounding fat at the sigmoid in the right lower quadrant, consistent with diverticulitis. There is no evidence abscess. There are a few air bubbles should be outside the lumen, consistent with perforation. The appendix appears normal. There is no small bowel dilatation. Bones: There is a mild compression fracture of the superior endplate of T11 and a moderate to severe compression fracture T12. Reproductive organs: Within normal limits. Lymph nodes: Unremarkable. Impression: Sigmoid diverticulitis with perforation. No evidence of abscess. His pain started last night after eating pizza. He denies N/V. he also complains of intermittent numbness and tingling of his fingers, intermittent buzzing in his ears as well as intermittent visual disturbances. He doesn't have any of those symptoms right now. He does have a history of hypokalemia and is on 30 mg of potassium BID at home. He takes HCTZ 25 mg daily for his HTN. Review of Systems Constitutional Constitutional: Denies fever(s), Reports headache(s) and Denies weight loss Eyes Eyes: Reports as per HPI ENT Ears, Nose, Mouth, and Throat: Denies dysphagia, Reports headache(s) and Denies hoarseness Cardiovascular Cardiovascular: Denies chest pain, Denies irregular heart rhythm, Denies radiating jaw, neck or arm pain and Denies dyspnea Respiratory Respiratory: Denies cough and Denies dyspnea Gastrointestinal Gastrointestinal: Reports as per HPI and Denies dysphagia Genitourinary Genitourinary: Denies oliguria and Denies difficulty urinating Musculoskeletal Musculoskeletal: Denies back pain Neurologic Neurologic: Reports as per HPI and Reports headache(s) Psychiatric Psychiatric: Reports system reviewed and no additional complaints, except as documented Endocrine Endocrine: Reports system reviewed and no additional complaints, except as documented [facility] Medical History (Updated 09/08/19 @ 15:10 by Shelley Bray MD) Alcohol withdrawal (Resolved) Alcohol withdrawal seizure with complication (Resolved) Alcoholic encephalopathy (Resolved) Aspiration pneumonia (Resolved) Delirium (Inactive) Dyslipidemia Hx of adenomatous polyp of colon Hypertension (Chronic) Obesity (BMI 30.0-34.9) Surgical History (Updated 09/08/19 @ 09:42 by Barb Giron DO) Colonoscopy - MAC 2011-nl EGD - MAC (05/19/17) History of tonsillectomy (Chronic) Social History (Updated 09/08/19 @ 15:00 by Shelley Bray MD) Smoking/Tobacco Use Status: Current-Occasional Alcohol Intake: former Year quit: 2019 Drug use: Never Substance use type: does not use Do you feel safe at home: Yes Meds Home Medications and Allergies Home Medications Medication Instructions Recorded Confirmed Type carvedilol 3.125 mg PO BID #90 tab 08/04/19 09/08/19 Rx hydrochlorothiazide 25 mg PO DAILY #90 tab 08/04/19 09/08/19 Rx potassium chloride [Klor-Con M10] 10 meq PO BID #120 tab 08/04/19 09/08/19 Rx lorazepam 1 mg PO HS PRN 09/08/19 09/08/19 History losartan 100 mg PO DAILY 09/08/19 09/08/19 History methocarbamol 500 mg PO BID PRN 09/08/19 09/08/19 History naproxen 500 mg PO BID 09/08/19 09/08/19 History omeprazole 40 mg PO DAILY 09/08/19 09/08/19 History ondansetron HCl [Zofran] 8 mg PO TID PRN 09/08/19 09/08/19 History potassium chloride 20 meq PO BID 09/08/19 09/08/19 History sertraline 100 mg PO DAILY 09/08/19 09/08/19 History Allergies Allergy/AdvReac Type Severity Reaction Status Date / Time No Known Allergies Allergy Unverified 09/08/19 09:12 Exam Const General: cooperative, comfortable and no acute distress Orientation: alert and oriented x3 HENMT Head: normocephalic and atraumatic Resp Effort & Inspection: normal respiratory effort Auscultation: clear to auscultation bilaterally Cardio Rate: regular rate Rhythm: regular rhythm Heart Sounds: no gallops, no murmurs and no rubs GI Inspection: normal to inspection Palpation: soft, no hepatosplenomegaly and tender in the RLQ (guarding); with no rebound tenderness Auscultation: hypoactive bowel sounds Results Labs Result diagrams: 09/08/19 09:20 09/08/19 09:20 Labs: Laboratory Results - last 24 hr 09/08/19 09/08/19 09:20 09:20 WBC 15.43 H RBC 4.70 Hgb 14.3 Hct 41.8 MCV 88.9 MCH 30.4 MCHC 34.2 RDW 13.7 Plt Count 304 MPV 10.4 Immature Gran % 0.3 Neutrophils % 83.8 Lymphocytes % 10.4 Monocytes % 5.4 Eosinophils % 0.0 Basophils % 0.1 Absolute Neutrophils 12.93 H Absolute Lymphocytes 1.60 Absolute Monocytes 0.83 H Absolute Eosinophils 0.00 Absolute Basophils 0.02 Sodium 139 Potassium 2.9 L* Chloride 100 Carbon Dioxide 31.9 Anion Gap 7.1 BUN 17 Creatinine 0.98 Estimated GFR/1.73 m2 >= 60.00 Glucose 138 H Calcium 8.8 Total Bilirubin 1.3 H AST 16 ALT 26 Alkaline Phosphatase 87 Total Protein 7.5 Albumin 3.4 Lipase 44 Last Vital Signs Temp 100.0 F H 09/08/19 13:12 Pulse 75 09/08/19 13:12 Resp 16 09/08/19 13:12 BP 131/84 09/08/19 13:12 Pulse Ox 93 L 09/08/19 13:12 COVID-19 Screening In the past 14 days, have you traveled outside of [place] or [place]?: NO Had IN PERSON contact w/suspected or confirmed C-19 person: No
[2019-09-08] MEDS: CIPROFLOXACIN 400 MG/200 ML BAG 200 MG IVPB (14:52)
--- NOTE | 2019-09-08 15:48 | NCONE_ITS ---
Date of service: 09/08/19 Time of Service: 15:48 Assessment and Plan Assessment and plan (1) Numbness and tingling in both hands: Status: Acute Assessment and plan: His neurological exam was unremarkable. 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 Based on his symptoms, I favor an ulnar neuropathy. We discussed conservative treatment including avoiding resting his elbows on hard surfaces and sleeping with his elbow straight at night. Also reducing activities that require a lot of elbow flexion and extension. If his symptoms persist or worsen, we discussed follow-up neurology clinic for diagnostic testing vs physical therapy. He did not want to make a follow-up appointment at this time and wait to see how things go. (2) Ocular migraine: Status: Acute Assessment and plan: He has a long history of ocular migraines, slightly increased in frequency in the last several weeks. Once stable, we discussed a trial of magnesium 400 mg at bedtime for migraine prophylaxis. He was not interested in adding further medications or supplements current regimen. He would like to follow-up in the neurology clinic as needed. (3) Tinnitus: Status: Acute Assessment and plan: Mr. Crystal appears to be describing tinnitus without any obvious hearing loss. The tinnitus is not bothersome to him. If it becomes bothersome, I recommend consulting with audiology/ENT. We discussed the use of white noise to cancel out the sound. He would like to follow-up as needed. Please call with any further questions or concerns. History of Present Illness History of Present Illness Chief Complaint: stroke Narrative: Handedness: right. HPI: Mr. Crystal is a 73-year-old man with a past medical history of hypertension, anemia, alcohol abuse currently sober x2 months, and esophageal strictures/esophagitis who was admitted today for diverticulitis with microperforation. He notes several symptoms. #1. Bilateral hand numbness and tingling. In the last 6 weeks, he has noticed numbness and tingling involving the entire hands bilaterally as well as the arms up to the elbow, right more than left. Symptoms are intermittent and seem to occur most often when he is sitting and watching television. It does not occur at night and does not wake him up. Symptoms also occur while driving. He has not noticed any weakness in his hands. #2. Vision changes. He has a long history, for as long as he can remember, of wavy lines appearing in his vision bilaterally. These will occur once daily to multiple times daily and are often triggered by exposure to bright lights. His symptoms will last anywhere from 20 minutes to an hour with shorter durations with the use of Tylenol. These are not associated with headaches. Remotely, he was given a diagnosis of ocular migraine. He has never been on a prophylactic medication for these. #3. Tinnitus. In the last several weeks, he has noticed a ringing/vibration mainly out of his left ear but also in the right ear. It is present all day but does not interfere with his ability to hear people talking, the television, etc. It does not necessarily bother him. He sleeps with a fan at night and has no issues falling asleep. He has not noticed any changes in his hearing. He otherwise was admitted to [facility] in July for alcohol withdrawal seizure requiring intubation. He underwent a CT head as well as a CTA head and neck during that visit. I was able to review the images personally. They were unremarkable except for mild chronic small vessel disease changes seen on the CTH. The EEG at that time showed severe diffuse slowing while he was on IV midazolam. Current blood work includes a potassium of 2.9 and white blood cell ~15. Magnesium level is pending. Recent laboratory work-up includes a B12 of 322, A1c 5.4, and TSH 1.95. Consults Requesting physician: Shelley Bray Review of Systems All systems reviewed & are unremarkable except as noted in HPI and below [facility] Medical History (Updated 09/08/19 @ 15:50 by Deepika Chatterjee MD) Alcohol withdrawal (Resolved) Alcohol withdrawal seizure with complication (Resolved) Alcoholic encephalopathy (Resolved) Aspiration pneumonia (Resolved) Delirium (Inactive) Dyslipidemia Hx of adenomatous polyp of colon Hypertension (Chronic) Obesity (BMI 30.0-34.9) Surgical History (Updated 09/08/19 @ 09:42 by Barb Giron DO) Colonoscopy - MAC 2010-nl EGD - MAC (05/19/17) History of tonsillectomy (Chronic) Social History (Updated 09/08/19 @ 15:00 by Shelley Bray MD) Smoking/Tobacco Use Status: Current-Occasional Alcohol Intake: former Year quit: 2019 Drug use: Never Substance use type: does not use Do you feel safe at home: Yes Visit Medication and Allergies Active Medications Generic Name Dose Route Start Last Admin Trade Name Freq PRN Reason Stop Dose Admin Carvedilol 3.125 mg 09/08/19 20:00 Coreg PO BID MAEGAN Enoxaparin Sodium 40 mg 09/08/19 12:00 09/08/19 13:43 Lovenox SC Not Given Q24H MAEGAN Hydrochlorothiazide 25 mg 09/09/19 08:30 Hydrodiuril PO DAILY [facility] Hydromorphone HCl 1 mg 09/08/19 11:57 Dilaudid Injection IVP Q6H PRN PRN Pain Ringer's Solution 1,000 mls @ 125 mls/hr 09/08/19 12:00 09/08/19 12:20 IV 125 mls/hr INFUSION MAEGAN Administration Acetaminophen 1,000 mg in 100 mls @ 400 mls/hr 09/08/19 11:57 Ofirmev IVPB Q8H PRN PRN Pain or Fever Metronidazole 500 mg in 100 mls @ 100 mls/hr 09/08/19 16:00 Flagyl IVPB Q8H MAEGAN Ciprofloxacin 400 mg in 200 mls @ 200 mls/hr 09/08/19 14:00 09/08/19 14:52 Cipro I.V. IVPB 200 mls/hr Q12H MAEGAN Administration Protocol IV Miscellaneous Supplies 1 each 09/08/19 09:45 IV DIRECTED MAEGAN Ketorolac Tromethamine 15 mg 09/08/19 14:12 Toradol Injection IVP 09/13/19 14:11 Q6H PRN PRN Losartan Potassium 100 mg 09/09/19 08:30 Cozaar PO DAILY [facility] Ondansetron HCl 0 mg 09/08/19 11:57 Zofran Injection IVP Q6H PRN PRN Pantoprazole Sodium 40 mg 09/08/19 12:00 09/08/19 13:42 Protonix Injection IVP 40 mg Q24H MAEGAN Administration Potassium Chloride 20 meq 09/08/19 20:00 K-Dur PO BID [facility] Promethazine HCl 0 mg 09/08/19 11:57 Phenergan Injection IM Q6H PRN PRN Sertraline HCl 100 mg 09/09/19 08:30 Zoloft PO DAILY [facility] Sodium Chloride 0 ml 09/08/19 09:38 09/08/19 13:45 Saline Flush 10 Ml Syringe IVP 10 ml PRN PRN Administration Sodium Chloride 50 ml 09/08/19 11:15 09/08/19 11:13 Saline 50 Ml Diluent Vial IV 50 ml .FOR DI USE MAEGAN Administration Allergies No Known Allergies Allergy (Unverified 09/08/19 09:12) Exam Narrative Exam Narrative: Physical Exam: Gen: Patient of apparent stated age, NAD Head and face: no facial or cranial abnormalities Neck: Supple, no meningismus, no occipital tenderness CV: + S1, S2, RRR, no murmur Resp: CTA B/L Abd: semirigid. tender, distended Ext: No edema. No clubbing or cyanosis. No bony deformity. Neuro Exam: Language: fluency, naming, repetition, and comprehension intact; Mental Status: AAOx3, current events intact, fund of knowledge intact; Speech: no dysarthria Cranial nerves: Funduscopy: not performed CN II: visual perea intact CN III, IV, : extraocular movements intact, no nystagmus, pupils symmetric and reactive to light CN V: face sensation intact to LT and PP CN VII: no facial asymmetry noted CN VIII: hearing intact bilaterally CN IX, X: palate rises symmetrically CN XI: trapezius/SCM 5/5 bilaterally CN XII: protrudes tongue symmetrically Sensory: intact to LT, PP, vibration, and joint position in all extremities; no 2nd/5th digit PP difference; negTinels at the wrist and neg Phalens; Motor: bulk and tone intact. Fine motor movements intact bilaterally. No pronator drift. Strength 5/5 throughout including the deltoids, biceps, triceps, wrist extensors, hip flexors, knee flexors, knee extensors, ankle flexors, and ankle extensors. FDI 5/5 bilaterally. APB 4+/5 bilaterally. Reflexes: 2+ at the biceps, triceps, brachioradialis, and patella; absent at the achilles tendons bilaterally; toes down going bilaterally; Coordination: FTN and HTS intact bilaterally Gait: deferred; Results Last Vital Signs Temp 37.8 C H 09/08/19 13:12 Pulse 75 09/08/19 13:12 Resp 16 09/08/19 13:12 BP 131/84 09/08/19 13:12 Pulse Ox 93 L 09/08/19 13:12 Labs Result diagrams: 09/08/19 09:20 09/08/19 09:20 Labs: Laboratory Results - last 24 hr 09/08/19 09/08/19 09:20 09:20 WBC 15.43 H RBC 4.70 Hgb 14.3 Hct 41.8 MCV 88.9 MCH 30.4 MCHC 34.2 RDW 13.7 Plt Count 304 MPV 10.4 Immature Gran % 0.3 Neutrophils % 83.8 Lymphocytes % 10.4 Monocytes % 5.4 Eosinophils % 0.0 Basophils % 0.1 Absolute Neutrophils 12.93 H Absolute Lymphocytes 1.60 Absolute Monocytes 0.83 H Absolute Eosinophils 0.00 Absolute Basophils 0.02 Sodium 139 Potassium 2.9 L* Chloride 100 Carbon Dioxide 31.9 Anion Gap 7.1 BUN 17 Creatinine 0.98 Estimated GFR/1.73 m2 >= 60.00 Glucose 138 H Calcium 8.8 Total Bilirubin 1.3 H AST 16 ALT 26 Alkaline Phosphatase 87 Total Protein 7.5 Albumin 3.4 Lipase 44
[2019-09-08 16:06] LABS: Potassium 3.1 mmol/L (3.5-5.1)
[2019-09-08 16:08] LABS: Magnesium 1.3 mg/dL (1.8-2.4)
[2019-09-08] MEDS: metroNIDAZOLE 500 MG/100 ML BAG 100 MG IVPB ×2 (16:27→23:32)
[2019-09-08] MEDS: POTASSIUM CHLORIDE/D5-0.45NACL 1,000 ML 125 MEQ IV (17:00)
[2019-09-08] MEDS: Potassium Chloride 20 MEQ TABCR PO (20:03)
[2019-09-08] MEDS: Carvedilol 3.125 MG TAB PO (20:03)
[2019-09-09] VITALS (12 sets, daily range): BP systolic 102–144; BP diastolic 60–86; PULSE 57–79; RESP 16–20; TEMP 36.3–38; O2SAT 93–98
[2019-09-09] MEDS: CIPROFLOXACIN 400 MG/200 ML BAG 200 MG IVPB ×2 (01:28→13:43)
[2019-09-09] MEDS: POTASSIUM CHLORIDE/D5-0.45NACL 1,000 ML 125 MEQ IV ×2 (03:45→18:17)
[2019-09-09] MEDS: Ketorolac 15 MG/ML VIAL IVP (04:02)
[2019-09-09 07:12] LABS: Abs Immature Grans 0.01 k/cumm (0.0-0.09); Absolute Basophil Count 0.02 k/cumm (0.0-0.2); Absolute Eosinophil Count 0.07 k/cumm (0.0-0.7); Absolute Lymphocyte Count 1.79 k/cumm (1.2-3.4); Absolute Monocyte Count 0.49 k/cumm (0.11-0.7); Basophils % 0.2; Eosinophils % 0.8; HCT 35.2 % (40.0-50.0); HGB 11.5 g/dL (13.5-17.5); Immature Grans % 0.1 %; Lymphocytes % 21.7; Mean Corp. HGB Concentration 32.7 g/dL (32.0-36.0); Mean Corpuscular Hemoglobin 29.9 pg (27.0-33.0); Mean Corpuscular Volume 91.4 fL (80-95); Mean Platelet Volume 10.5 fL (8.0-11.0); Monocytes % 5.9; Neutrophils % 71.3; RBC 3.85 m/cumm (4.50-6.00); RBC Distribution Width 13.8 % (11.8-14.1); White Blood Cell Count 8.25 k/cumm (4.4-10.8)
[2019-09-09 07:21] LABS: Absolute Neutrophil Count 5.88 k/cumm (1.2-6.7)
[2019-09-09 07:28] LABS: Anion Gap 2.6 mmol/L (3-11); BUN 22 mg/dL (7-18); CO2 32.4 mmol/L (21.0-32.0); CREATININE 1.11 mg/dL (0.70-1.30); Calcium 8.2 mg/dL (8.5-10.1); Chloride 104 mmol/L (98-107); Glucose 120 mg/dL (74-106); Potassium 3.4 mmol/L (3.5-5.1); Sodium 139 mmol/L (136-145)
[2019-09-09 07:42] LABS: Diff Comment Agrees w/ Instrument; RBC Morphology Normal
[2019-09-09 07:43] LABS: Platelet Count 205 x1000/uL (130-400)
[2019-09-09] MEDS: hydroCHLOROthiazide 25 MG TAB PO (07:55)
[2019-09-09] MEDS: Potassium Chloride 20 MEQ TABCR PO ×2 (07:58→20:07)
[2019-09-09] MEDS: Carvedilol 3.125 MG TAB PO ×2 (07:58→20:07)
[2019-09-09] MEDS: Losartan 50 MG TAB 100 MG PO (07:58)
[2019-09-09] MEDS: Sertraline 50 MG TAB 100 MG PO (07:59)
[2019-09-09 08:02] LABS: Vitamin B12 246 pg/mL (193-986)
[2019-09-09] MEDS: metroNIDAZOLE 500 MG/100 ML BAG 100 MG IVPB ×3 (08:03→23:23)
[2019-09-09 08:23] LABS: COVID-19 RT-PCR UVMMC Result Negative (Negative)
--- NOTE | 2019-09-09 08:54 | PGE_ITS ---
Date of Service Date of service: 09/09/19 Time of Service: 08:54 Assessment and Plan Assessment and plan (1) Acute diverticulitis: Status: Acute Assessment and plan: His symptoms have improved and WBC normalized Start clears, ADAT Will replace Mg, start probiotics Patient declines PO pain meds Advise continuing IV antibiotics for another day with possible D/C tomorrow if trend continues. Subjective Subjective Interval history since last seen: He feels much better than yesterday. Was able to sleep on his right side Passing flatus No N/V Only using Toradol for pain Exam Narrative Exam Narrative: Appears comfortable Abdomen soft, nondistended Minimal RLQ tenderness, no peritonitis Objective Objective Clinical Data: Abnormal lab results 09/08/19 09/08/19 09/08/19 Range/Units 09:20 09:20 15:47 WBC 15.43 H (4.4-10.8) k/cumm RBC (4.50-6.00) m/cumm Hgb (13.5-17.5) g/dL Hct (40.0-50.0) % Absolute Neutrophils 12.93 H (1.2-6.7) k/cumm Absolute Monocytes 0.83 H (0.11-0.7) k/cumm Potassium 2.9 L* 3.1 L (3.5-5.1) mmol/L Carbon Dioxide (21.0-32.0) mmol/L Anion Gap (3-11) mmol/L BUN (7-18) mg/dL Glucose 138 H (74-106) mg/dL Calcium (8.5-10.1) mg/dL Magnesium (1.8-2.4) mg/dL Total Bilirubin 1.3 H (0.2-1.0) mg/dL 09/08/19 09/09/19 09/09/19 Range/Units 15:47 06:15 06:15 WBC (4.4-10.8) k/cumm RBC 3.85 L (4.50-6.00) m/cumm Hgb 11.5 L D (13.5-17.5) g/dL Hct 35.2 L (40.0-50.0) % Absolute Neutrophils (1.2-6.7) k/cumm Absolute Monocytes (0.11-0.7) k/cumm Potassium 3.4 L (3.5-5.1) mmol/L Carbon Dioxide 32.4 H (21.0-32.0) mmol/L Anion Gap 2.6 L (3-11) mmol/L BUN 22 H (7-18) mg/dL Glucose 120 H (74-106) mg/dL Calcium 8.2 L (8.5-10.1) mg/dL Magnesium 1.3 L (1.8-2.4) mg/dL Total Bilirubin (0.2-1.0) mg/dL Vital Signs Temperature 98.4 F 09/09/19 07:11 Temperature Source Tympanic 09/09/19 07:11 Pulse 62 09/09/19 07:11 Pulse Rhythm Regular 09/09/19 03:45 Respiratory Rate 18 09/09/19 07:11 Respiratory Effort Non-Labored 09/09/19 03:45 Respiratory Depth Normal 09/09/19 03:45 Respiratory Pattern Normal 09/09/19 03:45 Blood Pressure 122/82 09/09/19 07:11 Blood Pressure Position Sitting 09/08/19 09:07 Pulse Oximetry 93 L 09/09/19 07:11 Oxygen Delivery Method Room Air 09/09/19 07:11 Oxygen Flow Rate 0 09/09/19 07:11 Pain Level 3 09/09/19 07:11 Intake & Output 09/08/19 09/08/19 09/09/19 11:59 23:59 11:59 Intake Total 2309 / 2309 1300 / 1300 Output Total 200 / 200 200 / 200 Balance 2109 1100 / 1100 Weight 209 lb 0.007 oz 209 lb 0.007 oz Intake: IV 2309 / 2309 1300 / 1300 Output: Urine 200 / 200 200 / 200 Other: Urine Color Dark Danielle Dark Danielle Urine Appearance Clear Clear Urine Odor Strong Strong Voiding Methods Toilet Toilet Urinal Urinal Laboratory Results WBC 8.25 k/cumm (4.4-10.8) D 09/09/19 06:15 RBC 3.85 m/cumm (4.50-6.00) L 09/09/19 06:15 Hgb 11.5 g/dL (13.5-17.5) L D 09/09/19 06:15 Hct 35.2 % (40.0-50.0) L 09/09/19 06:15 MCV 91.4 fL (80-95) 09/09/19 06:15 MCH 29.9 pg (27.0-33.0) 09/09/19 06:15 MCHC 32.7 g/dL (32.0-36.0) 09/09/19 06:15 RDW 13.8 % (11.8-14.1) 09/09/19 06:15 Plt Count 205 x1000/uL (130-400) 09/09/19 06:15 MPV 10.5 fL (8.0-11.0) 09/09/19 06:15 Immature Gran % 0.1 % 09/09/19 06:15 Neutrophils % 71.3 09/09/19 06:15 Lymphocytes % 21.7 09/09/19 06:15 Monocytes % 5.9 09/09/19 06:15 Eosinophils % 0.8 09/09/19 06:15 Basophils % 0.2 09/09/19 06:15 Absolute Neutrophils 5.88 k/cumm (1.2-6.7) 09/09/19 06:15 Absolute Lymphocytes 1.79 k/cumm (1.2-3.4) 09/09/19 06:15 Absolute Monocytes 0.49 k/cumm (0.11-0.7) 09/09/19 06:15 Absolute Eosinophils 0.07 k/cumm (0.0-0.7) 09/09/19 06:15 Absolute Basophils 0.02 k/cumm (0.0-0.2) 09/09/19 06:15 Differential Comment Agrees w/ instrument 09/09/19 06:15 RBC Morphology Normal 09/09/19 06:15 Sodium 139 mmol/L (136-145) 09/09/19 06:15 Potassium 3.4 mmol/L (3.5-5.1) L 09/09/19 06:15 Chloride 104 mmol/L (98-107) 09/09/19 06:15 Carbon Dioxide 32.4 mmol/L (21.0-32.0) H 09/09/19 06:15 Anion Gap 2.6 mmol/L (3-11) L 09/09/19 06:15 BUN 22 mg/dL (7-18) H 09/09/19 06:15 Creatinine 1.11 mg/dL (0.70-1.30) 09/09/19 06:15 Estimated GFR/1.73 m2 >= 60.00 (mL/min/1.73m2) 09/09/19 06:15 Glucose 120 mg/dL (74-106) H 09/09/19 06:15 Calcium 8.2 mg/dL (8.5-10.1) L 09/09/19 06:15 Magnesium 1.3 mg/dL (1.8-2.4) L 09/08/19 15:47 Total Bilirubin 1.3 mg/dL (0.2-1.0) H 09/08/19 09:20 AST 16 U/L (15-37) 09/08/19 09:20 ALT 26 U/L (16-63) 09/08/19 09:20 Alkaline Phosphatase 87 U/L (46-116) 09/08/19 09:20 Total Protein 7.5 g/dL (6.4-8.2) 09/08/19 09:20 Albumin 3.4 g/dL (3.4-5.0) 09/08/19 09:20 Lipase 44 U/L (73-393) 09/08/19 09:20 Vitamin B12 246 pg/mL (193-986) 09/09/19 06:15 COVID-19 PCR Negative (Negative) 09/08/19 12:50 Nasopharyn COVID-19 PCR Not Applicable 09/08/19 12:50 Ref Test Perform Site [facility] lab 09/08/19 12:50
[2019-09-09] MEDS: MAGNESIUM SULFATE 2 GM/50 ML BAG IVPB (09:32)
[2019-09-09] MEDS: Pantoprazole 40 MG VIAL IVP (11:26)
[2019-09-09] MEDS: Normal Saline Flush 10 ML SYR IVP (11:33)
[2019-09-09] MEDS: Acetaminophen 325 MG TAB 650 MG PO (15:38)
--- NOTE | 2019-09-09 16:04 | CHAPLAIN ---
Rick was resting in bed when I visited. H said he is feeling much better than yesterday. He originally from [place], but lives in [place]. He's been in touch with family by phone. Rick was pleasant, but not interested in further conversation.
--- NOTE | 2019-09-09 18:00 | PDOC.CMIN ---
- If Service Date Differs Date of service: 09/09/19 Time of Service: 18:00 Care Management Initial Assess REASON FOR HOSPITALIZATION:: Diverticulitis with microperforation PAST MEDICAL HISTORY/PAST SURGICAL HISTORY:: Medical History (Updated 09/08/19 @ 15:10 by Shelley Bray MD). Alcohol withdrawal (Resolved). Alcohol withdrawal seizure with complication (Resolved). Alcoholic encephalopathy (Resolved). Aspiration pneumonia (Resolved). Delirium (Inactive). Dyslipidemia. Hx of adenomatous polyp of colon. Hypertension (Chronic). Obesity (BMI 30.0-34.9). Surgical History (Updated 09/08/19 @ 09:42 by Barb Giron DO). Colonoscopy - MAC. 2010-nl. EGD - MAC (05/19/17). History of tonsillectomy (Chronic) PREVIOUS FUNCTIONAL STATUS/SOCIAL/FAMILY SUPPORTS:: Rick lives in [place] with his girlfriend, Shira. He is also in contact with his , Emile, who lives in [place]. He is a retired . He is independent at baseline. CURRENT FUNCTIONAL STATUS:: Rick was lying in bed when CM met with him. He reported that he was feeling better. He stated that he was able to eat food today, as his diet was advanced. He also reported, that per MD, if he tolerated this advanced diet, he may be able to discharge tomorrow. Rick's last admission was for alcohol withdrawal, and he reported to CM that he is doing well at home and has not had a drop of alcohol since that event. He also reported that he has spoken with a volleyball coach a few times, and has their contact information if he needs them. CM will continue to follow. ADVANCE DIRECTIVES:: DPOA on file, Emile listed as agent. Has patient been provided with information about the portal?: No Did the patient sign up for the portal?: No CODE STATUS:: Full Code INSURANCE COVERAGE / FINANCIAL ISSUES:: [facility]/ BCBS CURRENT HOME/COMMUNITY SERVICES/EQUIPMENT:: [employer] PRIMARY CARE PHYSICIAN:: Jack Reese POTENTIAL DISCHARGE NEEDS:: Evaluations for further needs, follow up appointments. PATIENT/FAMILY EDUCATION NEEDS:: Review discharge instructions regarding activity levels and medications, discussion of self care needs including ask me three ANTICIPATED BARRIERS TO DISCHARGE:: None identified at this time. TRANSPORTATION:: Anticipate he will be driven home via private vehicle by family. PLAN:: Rick will return home when medically cleared with no anticipated services. He will follow up with his PCP and discharge plan of care. He will be driven home via private vehicle by family when ready. CM will continue to support discharge planning considerations.
[2019-09-10 00:26] VITALS: RESP 20; O2SAT 97
[2019-09-10] MEDS: CIPROFLOXACIN 400 MG/200 ML BAG 200 MG IVPB (01:22)
[2019-09-10 03:57] VITALS: BP 137/84; PULSE 63; RESP 16; TEMP 37.3; O2SAT 96
[2019-09-10] MEDS: POTASSIUM CHLORIDE/D5-0.45NACL 1,000 ML 125 MEQ IV (04:15)
--- NOTE | 2019-09-10 05:29 | DSE_ITS ---
Date of service: 09/10/19 Time of Service: 07:12 DS: Diagnosis Discharge Diagnosis (1) Acute diverticulitis: Status: Acute Discharge Plan Disposition Patient Disposition: HOME Condition: Stable Discharge Details Chief Complaint: Abd Prob Clinical Impression: Acute diverticulitis, Perforation bowel Reason For Visit: DIVERTICULITIS WITH MICROPERFORATION Admit Date/Time: 09/08/19 11:57 Admit Provider: Shelley Bray Attending Provider: Shelley Bray Primary Care Provider: Jack Reese ED Provider: Barb Giron Hospital Course Hospital Course: The patient was admitted on IV Cipro/Flagyl and kept NPO. The day after admission he noted significantly improved pain. His WBC had normalized. His diet was advanced throughout the day without worsening of symptoms. He was passing flatus. 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 The patient declined follow up as his symptoms were not bothersome enough to investigate. He will follow up with Dr. Bray. Home Meds and New Rx's Prescriptions: New ciprofloxacin HCl [Cipro] 500 mg tablet 500 mg PO BID Qty: 14 RF: 0 metronidazole 500 mg tablet 500 mg PO Q8H Qty: 21 RF: 0 Continued carvedilol 3.125 mg Tablet 3.125 mg PO BID Qty: 90 RF: 3 hydrochlorothiazide 25 mg Tablet 25 mg PO DAILY Qty: 90 RF: 3 potassium chloride [Klor-Con M10] 10 mEq Tablet,Er Particles/Crystals 10 meq PO BID Qty: 120 RF: 3 methocarbamol 500 mg Tablet 500 mg PO BID PRNRF: 0 ondansetron HCl [Zofran] 8 mg Tablet 8 mg PO TID PRNRF: 0 sertraline 100 mg Tablet 100 mg PO DAILY RF: 0 lorazepam 1 mg Tablet 1 mg PO HS PRNRF: 0 naproxen 500 mg Tablet 500 mg PO BID RF: 0 potassium chloride 20 mEq Tablet Extended Release 20 meq PO BID RF: 0 losartan 50 mg tablet 100 mg PO DAILY RF: 0 omeprazole 40 MG capsule,delayed release(DR/EC) 40 mg PO DAILY RF: 0 Discharge Instructions Additional Instructions: Call for worsening abdominal pain, fever or lack of bowel activity Keep diet light/low fiber until seen for follow up appointment Take a probiotic or Kefir while on the antibiotics Do not take Zofran along with the ciprofloxacin Okay to use Tylenol alternating with ibuprofen (or your Naproxen) for pain Referrals: Shelley Bray MD [ [facility]YS[facility]] - (Return next week for a recheck) Activity:: Activity as Tolerated Equipment/Supplies:: No Equipment Needed Diet:: Soft/low fiber Discharge Orders Discharge Orders: Discharge Order (Routine); Ordered 09/10/19 Ordered By: Nicole Steele DS: Summary Status at Discharge Functional status at discharge: independent ambulation Overall status at discharge: patient is progressing back to baseline Mental Status: mental status grossly normal Speech and Movement: speech and movement normal Mood: congruent mood Affect: normal affect Exam Narrative Exam Narrative: Alert, no distress Abdomen soft, no significant tenderness. Psych Mental Status: mental status grossly normal Speech and Movement: speech and movement normal Mood: congruent mood Affect: normal affect DS: Data Vitals/I&O Vitals and I&O: Vital Signs Temperature 99.1 F 09/10/19 03:57 Temperature Source Tympanic 09/10/19 03:57 Pulse 63 09/10/19 03:57 Pulse Rhythm Regular 09/09/19 18:27 Respiratory Rate 16 09/10/19 03:57 Respiratory Effort 09/09/19 18:27 Respiratory Depth Normal 09/09/19 18:27 Respiratory Pattern Normal 09/09/19 18:27 Blood Pressure 137/84 09/10/19 03:57 Blood Pressure Position Sitting 09/08/19 09:07 Pulse Oximetry 96 09/10/19 03:57 Oxygen Delivery Method Room Air 09/10/19 03:57 Oxygen Flow Rate 0 09/10/19 03:57 Pain Level 3 09/09/19 19:00 Comment 09/09/19 17:15 Intake & Output 09/09/19 09/09/19 09/10/19 11:59 23:59 11:59 Intake Total 2640 / 4180 1540 / 4180 1000 / 1000 Output Total 400 / 1375 975 / 1375 350 / 350 Balance 2240 / 2805 565 / 2805 650 / 650 Intake: IV 2400 / 3700 1300 / 3700 1000 / 1000 Oral 240 / 480 240 / 480 Output: Urine 400 / 1375 975 / 1375 350 / 350 Other: Urine Color Dark Danielle Yellow Yellow Urine Appearance Clear Clear Clear Urine Odor None Strong Comment beginning to drink fluids this am Voiding Methods Urinal Urinal Toilet Bedside Commode Data Completed and Pending Labs on day of discharge: Labs from last 24 hours 09/10/19 09/10/19 09/09/19 05:35 05:35 06:15 WBC Pending RBC Pending Hgb Pending Hct Pending MCV Pending MCH Pending MCHC Pending RDW Pending Plt Count Pending MPV Pending Immature Gran % Pending Neutrophils % Pending Lymphocytes % Pending Monocytes % Pending Eosinophils % Pending Basophils % Pending Absolute Neutrophils Pending Absolute Lymphocytes Pending Absolute Monocytes Pending Absolute Eosinophils Pending Absolute Basophils Pending Differential Comment RBC Morphology Sodium Pending Potassium Pending Chloride Pending Carbon Dioxide Pending Anion Gap Pending BUN Pending Creatinine Pending Estimated GFR/1.73 m2 Pending Glucose Pending Calcium Pending Vitamin B12 246 COVID-19 PCR Nasopharyn COVID-19 PCR Ref Test Perform Site 09/09/19 09/09/19 09/08/19 06:15 06:15 12:50 WBC 8.25 D RBC 3.85 L Hgb 11.5 L D Hct 35.2 L MCV 91.4 MCH 29.9 MCHC 32.7 RDW 13.8 Plt Count 205 MPV 10.5 Immature Gran % 0.1 Neutrophils % 71.3 Lymphocytes % 21.7 Monocytes % 5.9 Eosinophils % 0.8 Basophils % 0.2 Absolute Neutrophils 5.88 Absolute Lymphocytes 1.79 Absolute Monocytes 0.49 Absolute Eosinophils 0.07 Absolute Basophils 0.02 Differential Comment Agrees w/ instrument RBC Morphology Normal Sodium 139 Potassium 3.4 L Chloride 104 Carbon Dioxide 32.4 H Anion Gap 2.6 L BUN 22 H Creatinine 1.11 Estimated GFR/1.73 m2 >= 60.00 Glucose 120 H Calcium 8.2 L Vitamin B12 COVID-19 PCR Negative Nasopharyn COVID-19 PCR Not Applicable Ref Test [facility] Medical History Alcohol withdrawal (Resolved) Alcohol withdrawal seizure with complication (Resolved) Alcoholic encephalopathy (Resolved) Aspiration pneumonia (Resolved) Delirium (Inactive) Dyslipidemia Hx of adenomatous polyp of colon Hypertension (Chronic) Obesity (BMI 30.0-34.9) Surgical History Colonoscopy - MAC 2010-nl EGD - MAC (05/19/17) History of tonsillectomy (Chronic) Social History Smoking/Tobacco Use Status: Current-Occasional Alcohol Intake: former Year quit: 2019 Drug use: Never Substance use type: does not use Do you feel safe at home: Yes
[2019-09-10 07:05] LABS: Abs Immature Grans 0.02 k/cumm (0.0-0.09); Absolute Basophil Count 0.01 k/cumm (0.0-0.2); Absolute Eosinophil Count 0.14 k/cumm (0.0-0.7); Absolute Monocyte Count 0.47 k/cumm (0.11-0.7); Absolute Neutrophil Count 4.93 k/cumm (1.2-6.7); Basophils % 0.1; HCT 35.4 % (40.0-50.0); HGB 11.6 g/dL (13.5-17.5); Immature Grans % 0.3 %; Lymphocytes % 20.1; Mean Corp. HGB Concentration 32.8 g/dL (32.0-36.0); Mean Corpuscular Hemoglobin 29.4 pg (27.0-33.0); Mean Corpuscular Volume 89.8 fL (80-95); Mean Platelet Volume 10.7 fL (8.0-11.0); Monocytes % 6.7; Neutrophils % 70.8; Platelet Count 227 x1000/uL (130-400); RBC 3.94 m/cumm (4.50-6.00); RBC Distribution Width 13.7 % (11.8-14.1); White Blood Cell Count 6.97 k/cumm (4.4-10.8)
[2019-09-10 07:15] LABS: Anion Gap 4.9 mmol/L (3-11); BUN 15 mg/dL (7-18); CO2 29.1 mmol/L (21.0-32.0); CREATININE 0.99 mg/dL (0.70-1.30); Calcium 8.3 mg/dL (8.5-10.1); Chloride 103 mmol/L (98-107); Glucose 132 mg/dL (74-106); Potassium 3.1 mmol/L (3.5-5.1); Sodium 137 mmol/L (136-145)
[2019-09-10 07:27] LABS: Diff Comment Agrees w/ Instrument
[2019-09-10 07:28] LABS: RBC Morphology Normal
[2019-09-10 07:30] VITALS: BP 154/82; PULSE 59; RESP 18; TEMP 36.8; O2SAT 96
--- NOTE | 2019-09-10 08:38 | PDOC.CMDIS ---
LACE Index Scoring Tool - Questions: Length of Stay (in days): 2 Acuity (Admit via E.D.?): Yes E.D. Visits: 2 - Answers: Total Score: 7 Risk of Readmission: Low Risk Care Management Discharge Reason for Hospitalization: Diverticulitis with microperforation Discharge Plan: Rick will return home when medically cleared with no additional services. He will follow up with his PCP, surgical services and his discharge plan of care as prescribed. He will be driven home via private vehicle by family when ready. Patient/Family Education Needs: Review discharge instructions, discuss Ask Me Three.
[2019-09-10 09:05] VITALS: RESP 20; O2SAT 97
[2019-09-10] MEDS: metroNIDAZOLE 500 MG/100 ML BAG 100 MG IVPB (09:09)
[2019-09-10] MEDS: Losartan 50 MG TAB 100 MG PO (09:10)
[2019-09-10] MEDS: Sertraline 50 MG TAB 100 MG PO (09:10)
[2019-09-10] MEDS: hydroCHLOROthiazide 25 MG TAB PO (09:10)
[2019-09-10] MEDS: Carvedilol 3.125 MG TAB PO (09:11)
[2019-09-10] MEDS: Potassium Chloride 20 MEQ TABCR PO (09:11)
== END 2019-09-10 09:44 | disposition home or self-care (01) | DRG 392 ==
LOC: ER 12:29 → MS 13:11
PROVIDERS: Admitting Provider Surgery; Emergency Provider Physician Assistant; PCP Internal Medicine; Visit Provider Surgery
DX: K57.20 Diverticulitis of large intestine with perforation and abscess without bleeding (principal); I10 Essential (primary) hypertension; E87.6 Hypokalemia; R20.0 Anesthesia of skin; G43.109 Migraine with aura, not intractable, without status migrainosus; H93.19 Tinnitus, unspecified ear; K21.9 Gastro-esophageal reflux disease without esophagitis; E78.5 Hyperlipidemia, unspecified
CPT/HCPCS: 36415; 80048; 80053; 83690; 96361; 96365; 96366; 96375; 99222; 99223; 99231; 99238; 99285; U0003; 74177; 82607; 83735; 84132; 85025; J0744; J1885; J2405; J3480; J3490

== ENCOUNTER 2019-09-13 11:13 | Outpatient (CLI) | payer MEDICARE, BC, SELFPAY ==
--- NOTE | 2019-09-13 10:15 | DI.RAD_ITS ---
EXAM: XR SHOULDER RT COMPLETE 2+V CLINICAL HISTORY: RIGHT SHOULDER PAIN TECHNIQUE: COMPARISON: CR,RF BARIUM SWALLOW ONLY from 05/14/2017 CR,XR XR PORTABLE CHEST AP POST LINE from 07/27/2019 CR XR PORTABLE CHEST AP POST LINE from 07/28/2019 CR XR PORTABLE CHEST AP POST LINE from 07/29/2019 FINDINGS: Three views were obtained. There may be mild narrowing of the cartilaginous joint space of glenohume ral joint. Mild hypertrophic changes seen involving acromioclavicular and glenohumeral joints. On the AP view there is question of a sclerotic region of the infra glenoid scapula, possible interna l lucency. This area is not well visualized, additional evaluation with shoulder MRI should be consi dered to evaluate the possibility of a bony scapular lesion. IMPRESSION:
== END 2019-09-13 11:33 ==
PROVIDERS: PCP Internal Medicine; Referring Provider Internal Medicine; Visit Provider Student in an Organized Health Care Education/Training Program
DX: M25.511 Pain in right shoulder (principal); R93.6 Abnormal findings on diagnostic imaging of limbs; M75.101 Unspecified rotator cuff tear or rupture of right shoulder, not specified as traumatic; M72.0 Palmar fascial fibromatosis [Dupuytren]; I10 Essential (primary) hypertension
CPT/HCPCS: 99203; 99214; 73030

== ENCOUNTER → 2019-09-17 08:24 | Outpatient (BNVA) | payer MEDICARE, BC, SELFPAY | PROVIDERS: PCP Internal Medicine; Referring Provider Internal Medicine; Visit Provider Surgery | DX: K57.20 Diverticulitis of large intestine with perforation and abscess without bleeding (principal); I10 Essential (primary) hypertension | CPT/HCPCS: 99212; 99213 ==

== ENCOUNTER 2019-09-20 02:29 | Outpatient (CLI) | payer MEDICARE, BC, SELFPAY ==
--- NOTE | 2019-09-20 07:45 | DI.MRI_ITS ---
EXAM: MR UPPER JOINT RT WO CLINICAL HISTORY: RT SHOULDER PAIN, M25.511. TECHNIQUE: Multiplanar multisequence MRI was performed. COMPARISON: X-ray right shoulders 09/13/2019. FINDINGS: BONES: There is edema seen in the articular subchondral bone of the humerus. It appears somewhat cornelio ear surrounding the marrow edema. The findings raise the question of avascular necrosis. Fracture/c ontusion cannot be excluded. JOINTS: Mild degenerative changes are seen at the acromioclavicular joint. There is superior subluxa tion of the humeral head relative to the glenoid. This is likely due to the rotator cuff tears as de scribed above. TENDONS: Supraspinatus: Complete tear of the supraspinatus tendon with retraction to the level of the glenohum eral joint. Infraspinatus: Large full-thickness tear of the infraspinatus tendon with retraction almost to the le francisco j of the glenohumeral joint. Subscapularis: Increased signal and thickening of the subscapularis tendon consistent with tendinosis or partial tear. There does appear to be a full-thickness tear of the superior aspect of the subsca pularis tendon at its insertion onto the lesser tuberosity. Teres Minor: Unremarkable. Biceps and [place]: Increased signal seen in the biceps tendon suggesting tendinosis or partial tear. MUSCLES: Vvwd-no-[id number] fatty atrophy of the supraspinatus and infraspinatus muscles. The subscapu yanique and teres minor muscles show normal signal and size. GLENOID LABRUM: Unremarkable on this noncontrast examination. SOFT TISSUES: Unremarkable. LIGAMENTS: The coracoclavicular ligament appears intact. OTHER: There is fluid seen in the subacromial subdeltoid bursa secondary to the rotator cuff tears. IMPRESSION: 1. Complete supraspinatus tendon tear and large full-thickness tear of the infraspinatus tendon with retraction of both tendons to the level of the glenohumeral joints. 2. At least a partial tear involving the superior aspect of the subscapularis tendon. 3. Tendinosis or partial tear involving the biceps tendon. 4. Abnormal signal seen in the subchondral bone of the humeral head. Differential considerations inc lude acute fracture, contusion or avascular necrosis. 5. Mild to moderate fatty atrophy of the supraspinatus and infraspinatus muscles. 6. Superior subluxation of the humeral head. DATA REPOSITORY:
== END 2019-09-20 02:49 ==
PROVIDERS: PCP Internal Medicine; Visit Provider Student in an Organized Health Care Education/Training Program
DX: M25.511 Pain in right shoulder (principal); M19.011 Primary osteoarthritis, right shoulder; M75.101 Unspecified rotator cuff tear or rupture of right shoulder, not specified as traumatic; M75.81 Other shoulder lesions, right shoulder; M62.511 Muscle wasting and atrophy, not elsewhere classified, right shoulder
CPT/HCPCS: 73221

== ENCOUNTER 2019-09-21 10:04 | Outpatient (REF) | payer MEDICARE, BC, SELFPAY ==
[2019-09-23 10:26] LABS: Hepatitis C Ab w Rflx HCV PCR Negative (Negative)
== END 2019-09-21 10:24 ==
LOC: NCHCN 10:04
PROVIDERS: PCP Internal Medicine; Visit Provider Internal Medicine
DX: F43.0 Acute stress reaction (principal); I10 Essential (primary) hypertension; F10.21 Alcohol dependence, in remission; Z87.19 Personal history of other diseases of the digestive system; Z11.59 Encounter for screening for other viral diseases; E87.6 Hypokalemia
CPT/HCPCS: 86803; 84132

== ENCOUNTER 2019-09-23 12:20 | Outpatient (REF) | payer MEDICARE, BC, SELFPAY ==
[2019-09-23 20:53] LABS: Potassium 4.7 mmol/L (3.5-5.1)
== END 2019-09-23 12:40 ==
LOC: NCHCN 12:20
PROVIDERS: PCP Internal Medicine; Visit Provider Internal Medicine
DX: E87.5 Hyperkalemia (principal)
CPT/HCPCS: 84132

== ENCOUNTER 2019-10-07 10:30 | Outpatient (REF) | payer MEDICARE, BC, SELFPAY ==
[2019-10-07 21:20] LABS: Potassium 2.6 mmol/L (3.5-5.1)
== END 2019-10-07 10:50 ==
LOC: NCHCN 10:30
PROVIDERS: PCP Internal Medicine; Visit Provider Internal Medicine
DX: E87.5 Hyperkalemia (principal)
CPT/HCPCS: 84132

== ENCOUNTER 2019-10-11 03:04 | Outpatient (CLI) | payer MEDICARE, BC, SELFPAY ==
[2019-10-11 11:25] LABS: Anion Gap 7.1 mmol/L (3-11); BUN 19 mg/dL (7-18); CO2 33.9 mmol/L (21.0-32.0); CREATININE 1.17 mg/dL (0.70-1.30); Calcium 8.4 mg/dL (8.5-10.1); Chloride 99 mmol/L (98-107); Glucose 102 mg/dL (74-106); Sodium 140 mmol/L (136-145)
[2019-10-11 11:33] LABS: Potassium 2.7 mmol/L (3.5-5.1)
== END 2019-10-11 03:24 ==
PROVIDERS: PCP Internal Medicine; Visit Provider Student in an Organized Health Care Education/Training Program
DX: M72.0 Palmar fascial fibromatosis [Dupuytren] (principal); Z01.812 Encounter for preprocedural laboratory examination
CPT/HCPCS: 36415; 80048; U0003

== ENCOUNTER 2019-10-11 07:53 | Outpatient (CLI) | payer MEDICARE, BC, SELFPAY ==
[2019-10-12 00:49] LABS: COVID-19 RT-PCR UVMMC Result Negative (Negative)
== END 2019-10-11 08:13 ==
PROVIDERS: PCP Internal Medicine; Visit Provider Student in an Organized Health Care Education/Training Program
DX: Z01.818 Encounter for other preprocedural examination (principal); M72.0 Palmar fascial fibromatosis [Dupuytren]
CPT/HCPCS: U0003

== ENCOUNTER → 2019-10-12 13:20 | Outpatient (BNVA) | payer MEDICARE, BC, SELFPAY | PROVIDERS: PCP Internal Medicine; Referring Provider Internal Medicine; Visit Provider Student in an Organized Health Care Education/Training Program | DX: S46.011D Strain of muscle(s) and tendon(s) of the rotator cuff of right shoulder, subsequent encounter (principal); W19.XXXD Unspecified fall, subsequent encounter; M75.21 Bicipital tendinitis, right shoulder; M75.51 Bursitis of right shoulder; M75.41 Impingement syndrome of right shoulder; Z01.818 Encounter for other preprocedural examination | CPT/HCPCS: 99214 ==

== ENCOUNTER 2019-10-13 08:12 | Day surgery (SDC) | payer MEDICARE, BC, SELFPAY ==
--- NOTE | 2019-10-11 13:42 | NUR.NOTE ---
10/11/19: Office aware of critical value Potassium 2.7...consulted with Bhavin, with possiblility of switching pt. from MAC to a LOCAL case, office will advise by end of day today. Nursing Note:
[2019-10-13 08:27] VITALS: BP 184/108; PULSE 60; RESP 16; TEMP 36.7; O2SAT 97
[2019-10-13] MEDS: Lactated Ringers 1,000 ML 80 ML IV (08:54)
--- NOTE | 2019-10-13 09:24 | PDOC.DSDIS_ITS ---
Discharge Plan Disposition Patient Disposition: HOME Condition: Good Discharge Details Reason For Visit: Right Dupuytren's Contracture Attending Provider: Sergio Woods Primary Care Provider: Jack Reese Home Meds and New Rx's Prescriptions: New hydrocodone-acetaminophen 5-325 mg tablet 1 tab PO Q8H PRN PRN (Reason: pain) Qty: 6 RF: 0 acetaminophen 500 mg tablet 500 mg PO Q8H PRN (Reason: pain) Qty: 30 RF: 3 ibuprofen 600 mg tablet 600 mg PO TID PRNQty: 30 RF: 3 Continued polyethylene glycol 3350 17 gram powder in packet 255 g PO DAILY Qty: 15 RF: 0 carvedilol 3.125 mg Tablet 3.125 mg PO BID Qty: 90 RF: 3 potassium chloride [Klor-Con M10] 10 mEq Tablet,Er Particles/Crystals 10 meq PO BID Qty: 120 RF: 3 methocarbamol 500 mg Tablet 500 mg PO BID PRNRF: 0 ondansetron HCl [Zofran] 8 mg Tablet 8 mg PO TID PRNRF: 0 sertraline 100 mg Tablet 100 mg PO DAILY RF: 0 lorazepam 1 mg Tablet 1 mg PO HS PRNRF: 0 potassium chloride 20 mEq Tablet Extended Release 20 meq PO BID RF: 0 losartan 50 mg tablet 100 mg PO DAILY RF: 0 omeprazole 40 MG capsule,delayed release(DR/EC) 40 mg PO DAILY RF: 0 Discontinued naproxen 500 mg Tablet 500 mg PO BID RF: 0 Discharge Instructions Additional Instructions: Activity: You may use your fingers for light activity. You should limit any excessive motion or forceful gripping until the sutures have been removed. You may perform activities with the splint in place. Dressings: You should keep the initial surgical dressing and splint in place until your office appointment. If the splint gets dirty or unwrapped, you may remove your dressings and and rewrap. Medications: - You should take Tylenol and Ibuprofen around the clock as prescribed or per toolroom clerk's recommendations. - You have Hydrocodone prescribed for breakthrough pain control. Take only as needed and limit use as much as possible. This may cause constipation. Follow-up: 7-10 days for wound check and suture removal. Referrals: Sergio Woods MD [ [facility] STAFF PHYSICIAN] - Equipment/Supplies: Splint Activity:: Elevate Remove Dressings/Wound Care:: Do Not Remove Shower/Bathe:: Cover Diet:: As Tolerated Discharge Orders Discharge Orders: Discharge Order (Routine); Ordered 10/13/19 Ordered By: Sergio Woods DS: Diagnosis Discharge Diagnosis (1) Dupuytren's contracture of right hand: Status: Acute
[2019-10-13] MEDS: ceFAZolin 2 GM/50 ML BAG IVPB (09:31)
[2019-10-13] MEDS: Sodium Bicarbonate 50 MEQ/50 ML VIAL (09:48)
[2019-10-13 11:21] VITALS: BP 153/81; PULSE 51; RESP 16; TEMP 36.1; O2SAT 97
--- NOTE | 2019-10-13 15:01 | ROE_ITS ---
Date of service: 10/13/19 Time of Service: 10:01 Operative Note Operative Note DATE OF PROCEDURE: 10/13/19 PRE-OP DIAGNOSIS: Dupuytren's Contracture - Right Hand POST-OP DIAGNOSIS: same PROCEDURE: Partial Palmar Fasciectomy - Right Palm and Little Finger SURGEON: Sergio Woods ANESTHESIA: MAC ESTIMATED BLOOD LOSS: 5 PATHOLOGY: none sent TOURNIQUET TIME: 0 COMPLICATIONS: None Patient was transported to: same day Patient's condition: stable Indications: Rick is a 73yo male who I have seen for Dupuytren's contracture of the right hand. He had notable PIP and MCP contracture which was interfering with daily activities. I discussed treatments and different techniques. He agreed that something should be done. I recommended a partial palmar fasciectomy with removal of the cord and straigthening of the finger. I reviewed the risk of the procedure to include bleeding, infection, pain, stiffness, continued contracture, damage to nerves and vessels, damage to muscles and tendons, need for repeat procedures. Despite these risk, patient desired to proceed. Findings: There was a large cord from the ulnar palm extending on to the little finger, base of the middle phalanx. This was resected in whole. Procedure Description: Rick was greeted in the preoperative holding area. The correct site was identified and marked. The consent was reviewed the patient and signed. The history physical was updated. Patient was taken back to the op erating room and placed in the supine position with the right hand placed on a hand table. A nonsterile tourniquet was placed high up onto the arm. The hand and forearm was then prepped with ChloraPrep and draped in standard fashion. Prophylactic antibiotics in the form of cefazolin were given. A timeout was performed for safe surgery. The surgical site was then injected and anesthetized with 1% lidocaine with epinephrine buffered with sodium bicarbonate. This Geovanny type incision was carried out over the central cord and onto the radial border of the little finger. After local anesthesia was provided, I incised the Geovanny type incision. Make sure not to penetrate to deeply but free of the skin edges. Once these were opened fully the central cord was identified proximally. Once i dentified it was transected proximally and elevated off of the deeper structures. It was then used to be elevated out the wound to help guide resection of the central cord. The central cord was fully identified traveling up to the radial aspect of the MCP joint. Up to this point there were no crossing structures. At the level MCP joint there was a small superficial branch on top of the cord so therefore I concentrated moving more distally. The cord was these identifiable over the radial aspect of the little finger. There is some crossing tissue but not neurovascular bundle. The neurovascular bundle was deep to the spiral cord. This cord was then transected at the level of the PIP joint and once again was elevated and carefully dissected out of the finger paying careful attention to the underlying neurovascular bundle. This distal to proximal dissection then met up with the proximal distal dissection of the cord was removed in whole. After this, the finger was noted to have full extension of the MCP joint, proxy -20 degrees. The PIP joint was still limited to about 15 degrees of flexion but much better than his preoperative state. I did not perform any volar plate transection to the PIP joint. The wounds were thoroughly irrigated. There is minimal bleeding. The tissue was then closed using standard techniques and 4-0 nylon. The wound was dressed with Xeroform, 4 x 4's. He was placed into an extension splint of the little and ring fingers. At the end the case all counts are correct. The patient tolerated the procedure well and was transferred back to the day surgery area in a stable condition.
== END 2019-10-13 11:19 | disposition home or self-care (01) ==
PROVIDERS: PCP Internal Medicine; Visit Provider Student in an Organized Health Care Education/Training Program
PROC: (CPT 26045; principal; 2019-10-13 09:30)
DX: M72.0 Palmar fascial fibromatosis [Dupuytren] (principal); I10 Essential (primary) hypertension; K21.9 Gastro-esophageal reflux disease without esophagitis
CPT/HCPCS: 26123; 84132; J0690; J2001; J2704

== ENCOUNTER 2019-10-14 09:25 | Outpatient (REF) | payer MEDICARE, BC, SELFPAY ==
[2019-10-14 20:37] LABS: Potassium 3.4 mmol/L (3.5-5.1)
== END 2019-10-14 09:45 ==
LOC: NCHCN 09:25
PROVIDERS: PCP Internal Medicine; Visit Provider Internal Medicine
DX: E87.5 Hyperkalemia (principal)
CPT/HCPCS: 84132

== ENCOUNTER 2019-10-21 09:17 | Outpatient (REF) | payer MEDICARE, BC, SELFPAY ==
[2019-10-21 20:54] LABS: Potassium 3.8 mmol/L (3.5-5.1)
== END 2019-10-21 09:37 ==
LOC: NCHCN 09:17
PROVIDERS: PCP Internal Medicine; Visit Provider Internal Medicine
DX: E87.5 Hyperkalemia (principal)
CPT/HCPCS: 84132

== ENCOUNTER → 2019-10-25 15:10 | Outpatient (BNVA) | payer MEDICARE, BC, SELFPAY | PROVIDERS: PCP Internal Medicine; Referring Provider Internal Medicine; Visit Provider Student in an Organized Health Care Education/Training Program | DX: Z47.89 Encounter for other orthopedic aftercare (principal); M72.0 Palmar fascial fibromatosis [Dupuytren] ==

== ENCOUNTER 2019-10-26 07:33 | Outpatient (CLI) | payer MEDICARE, BC, SELFPAY ==
[2019-10-28 09:42] LABS: COVID-19 RT-PCR Result NEGATIVE (Negative)
== END 2019-10-26 07:53 ==
PROVIDERS: PCP Internal Medicine; Visit Provider Student in an Organized Health Care Education/Training Program
DX: Z01.818 Encounter for other preprocedural examination (principal); Z03.818 Encounter for observation for suspected exposure to other biological agents ruled out
CPT/HCPCS: U0003

== ENCOUNTER 2019-10-29 06:10 | Day surgery (SDC) | payer MEDICARE, BC, SELFPAY ==
[2019-10-29] VITALS (9 sets, daily range): BP systolic 100–138; BP diastolic 60–91; PULSE 8–60; RESP 16–26; TEMP 36.2–36.5; O2SAT 93–98
[2019-10-29] MEDS: Lactated Ringers 1,000 ML 100 ML IV (06:58)
[2019-10-29] MEDS: Bupivacaine LIPOSOME/PF 133 MG/10 ML VIAL IJ (07:26)
[2019-10-29] MEDS: Bupivacaine 0.5% Pres-Free 30 ML VIAL (07:26)
[2019-10-29] MEDS: ceFAZolin 2 GM/50 ML BAG IVPB (08:15)
[2019-10-29] MEDS: EPINEPHrine 30 MG/30 ML VIAL (08:59)
--- NOTE | 2019-10-29 12:54 | W.PM.DSUDISC ---
Discharge Plan Disposition Patient Disposition: HOME Condition: Stable Discharge Details Reason For Visit: Right shoulder surgery Attending Provider: August Escamilla Primary Care Provider: Jack Reese Home Meds and New Rx's Prescriptions: New naproxen 250 mg tablet 250 - 500 mg PO BID PRN (Reason: Moderate pain or swelling) Qty: 60 RF: 0 aspirin 81 mg tablet,delayed release (DR/EC) 81 mg PO DAILY 14 Days Qty: 14 RF: 0 tramadol 50 mg Tablet 50 mg PO Q8H PRN PRN (Reason: severe pain) Qty: 12 RF: 0 Continued carvedilol 3.125 mg Tablet 3.125 mg PO BID Qty: 90 RF: 3 ondansetron HCl [Zofran] 8 mg Tablet 8 mg PO TID PRNRF: 0 sertraline 100 mg Tablet 100 mg PO DAILY RF: 0 lorazepam 1 mg Tablet 1 mg PO HS PRNRF: 0 losartan 50 mg tablet 100 mg PO DAILY RF: 0 omeprazole 40 MG capsule,delayed release(DR/EC) 40 mg PO DAILY RF: 0 amlodipine 5 mg Tablet 5 mg PO DAILY RF: 0 spironolactone 25 mg tablet 25 mg PO BID RF: 0 hydrocodone-acetaminophen 5-325 mg tablet 1 tab PO Q8H PRN PRN (Reason: pain) Qty: 6 RF: 0 acetaminophen 500 mg tablet 500 mg PO Q8H PRN (Reason: pain) Qty: 30 RF: 3 Discontinued naproxen 500 mg Tablet 500 mg PO DAILY RF: 0 ibuprofen 600 mg tablet 600 mg PO TID PRNQty: 30 RF: 3 Discharge Instructions Additional Instructions: Surgery: Shoulder arthroscopy with massive rotator cuff repair, biceps tenodesis, extensive debridement, and subacromial decompression. Activity: You should keep your arm at your side in a neutral position at all times except for physical therapy. Do not try to lift or raise your arm using your own muscles. You should use the sling whenever you are out of the house. You may have to adjust the abduction pillow or remove it for comfort. At home it is best to remove the sling and rest the arm on a pillow at your side or support the operative side with your other hand. You may allow the arm to dangle at your side. A physical therapy prescription will be provided separately today with a conservative rehab program. Prescriptions: Aspirin 81 mg take 1 daily to prevent a blood clot for 2 weeks Naproxen 250 mg take 1-2 every 12 hours with a meal as needed for moderate pain Tramadol 50 mg take 1 every 8 hours as needed for severe pain You may use [id number] Tylenol (acetaminophen) as needed for mild pain. These pain medications may be taken all at once or in different combinations as needed. Also, recommend Colace (docusate) as a stool softener as surgery and pain medicine cause constipation. Dressings: Remove shoulder bandage after 3 days. Leave the sticky Steri-Strips in place until they fall off or remove them after you shower. Cover the incisions with Band-Aids or leave them open to air. You may shower after 5 days. Follow-up: 10-[address] Escamilla You may take off the leg compression stockings this evening at home. You may also leave them on a few days longer if you have a history of leg swelling or edema. Let us know right away if you develop any redness, drainage, fevers, chest pain, or trouble breathing. Do not drink alcohol or drive for at least 24 hours after anesthesia. Please call the office during business hours with any questions or concerns. Referrals: August Escamilla MD [ [facility] STAFF PHYSICIAN] - Discharge Orders Discharge Orders: Discharge Order (Routine); Ordered 10/29/19 Ordered By: August Escamilla DS: Diagnosis Discharge Diagnosis (1) Traumatic tear of right rotator cuff: Status: Acute (2) Tendonitis of long head of biceps brachii of right shoulder: Status: Acute (3) Bursitis of right shoulder: Status: Acute (4) Impingement syndrome of right shoulder: Status: Acute
--- NOTE | 2019-10-29 13:41 | W.PM.OP ---
Date of service: 10/29/19 Time of Service: 12:55 Operative Note Operative Note DATE OF PROCEDURE: 10/29/19 PRE-OP DIAGNOSIS: Right: 1. Rotator cuff tear 2. LHB tendinopathy 3. Bursitis 4. Impingement POST-OP DIAGNOSIS: same PROCEDURE: Right: 1. Rotator cuff repair, CPT# 63841 with modifier 22: Massive, chronic subscapularis, supraspinatus, and infraspinatus repair with significantly increased counseling regarding potential complications, increased operative difficulty with approximately 100% increased operative time, and will require more frequent and attentive follow up and personalized rehab protocol. This chronic massive tendon injury required extensive releases of adhesions for appropriate tendon mobilization and a significantly more difficult repair involving incorporating anterior and posterior tissue in order to reattach the rotator cuff back to the footprint of the lesser and greater tuberosity. There is also the complicating factor of extremely long duration alcohol abuse poor nutrition likely making the bone extremely soft as well as in this case requiring multiple attempts to place suture anchors, failure of fixation of these anchors required suture anchor removal, and revising these anchors to larger anchors and different locations modifying and complicating the repair. 2. Extensive debridement, CPT# 11284. This involved using arthroscopic hand instruments, power instruments, and radiofrequency instruments to release to release the long head of the biceps tendon and debride areas of labral tearing, synovitis, and chondromalacia about the central glenoid and within the glenohumeral joint anteriorly, superiorly and posteriorly. 3. Subacromial decompression with partial acromioplasty, CPT# 48969. This involved using arthroscopic power instruments and a radiofrequency wand to complete a bursectomy and remove bone spurs on the undersurface of the acromion. The orthotics prosthetics assistant was medically required in order to help assist in techniques above, which require positioning the arm, holding the arthroscope, and manipulating 2 to 4 instruments and sutures at the same time. This cannot be done without the help of an experienced orthotics prosthetics assistant. SURGEON: August Escamilla [employer] REPAIRER: Barb Almazan ANESTHESIA: GETA and regional ESTIMATED BLOOD LOSS: 15 PATHOLOGY: none sent COMPLICATIONS: None Patient was transported to: PACU Patient's condition: stable Implants: Arthrex: 4.75mm knotless SwiveLocks x 2 and 5.5mm SwiveLocks x 3 Indications: The patient was diagnosed with the above conditions and appropriately indicated for surgical intervention. Please see complete medical record for details. Findings: Exam under anesthesia: Full, symmetrical range of motion; no instability. Glenohumeral joint: Extensive synovitis anteriorly superiorly and posteriorly. Significant anterior superior and posterior labral fraying. Biceps tendon injection and fraying about the bicipital groove. Largely intact subscapularis but disrupted retracted rotator cable starting at its upper border near the comma tissue. Massive chronic retracted supraspinatus tear starting just posterior to the interval and an L pattern involving the infraspinatus as well. Central glenoid chondromalacia and moderate thickness cartilage flaps. Subacromial space: Mild anterior subacromial bone spur. Extensive bursitis. Frayed remnant tissue over the greater tuberosity from the medial margin anteriorly completely posteriorly to the teres. Supraspinatus thinning retraction past the level of the glenoid. Delaminated supraspinatus tear. Retracted but more mobile infraspinatus tearing posteriorly. Procedure Description: In the operating room, general anesthesia was induced. Bilateral shoulders were examined. The patient was positioned in the beachchair position. All bony prominences were well-padded. Preoperative antibiotics were administered. The shoulder was prepped and draped in the usual sterile fashion. The correct patient, procedure, and side of the procedure were all verified prior to incision. Starting through the posterior portal a standard complete diagnostic arthroscopy was performed of the glenohumeral joint including inspection of the long head of the biceps, anterior and superior labrum, subscapularis tendon, supraspinatus and infraspinatus tendons, and axillary recess. The glenoid and humeral head cartilage as well as the posterior labrum were inspected from an anterior viewing portal. Significant findings and interventions noted above. The biceps tendon was released from the superior labrum using arthroscopic scissors. The subscapularis upper border could be retracted off the lesser tuberosity. There was significant medial displacement of the comma SGHL and CHL tissue. Decision was made to repair the subscapularis and include the anterior leading edge of the supraspinatus rotator cable complex to assist with what would be a difficult chronic massive retracted superior rotator cuff repair. A rigid cannula was inserted anteriorly. The lesser tuberosity footprint was prepared using hand and power instruments for tendon healing. The arm was positioned in neutral. Using a 1 portal technique, a suture lasso was used to pass a fiber tape fiber through the lateral and superior subscapularis taking care to include the anterior rotator cable tissue. This stitch was used for traction and passing of a suture tape link more medially and centrally in the subscapularis tendon body. The punch was used to localize placement of the anchor. The bone was soft and the punch advanced easily. A larger 5.5 mm anchor in usual was selected. Both sutures were passed through the anchor eyelet and the anchor was brought down to the bone with the sutures tensioned appropriately. The arm was brought through full external rotation demonstrating no restricted motion due to the repair and secure fixation of the tendon and anchor to bone. Starting through the posterior portal, the arthroscope was directed into the subacromial space. A lateral 50 yard line lateral portal was created. A combination of power instruments and a radiofrequency ablator were used to debride bursitis anteriorly, posteriorly, and laterally as well as expose and smooth a limited amount of anterior bone spurring on the undersurface of the acromion. The coracoacromial ligament was preserved as the patient had a high riding humeral head preoperatively. The bursectomy was completed viewing laterally and working from posteriorly and the rotator cuff was thoroughly inspected with findings noted above. Cannulas were inserted at the superior anterior lateral and superior posterior lateral margins of the acromion as well as at the lateral 50 yard line portal. The rotator cuff tear was inspected and debrided of frayed tissue at the margins exposing a full-thickness massive retracted supraspinatus infraspinatus tear. The greater was tuberosity cleared of fibrous tissue over the footprint and the bursectomy was extended laterally. The anterior leading edge of the supraspinatus and rotator cable complex had been reduced near the rotator interval. Cuff graspers and elevators were used to mobilize the tendons medially as best possible. There was significant thinning, degeneration, and delaminated layers of mid portion and posterior portion of the supraspinatus. It was clear that the supraspinatus would not produce over the entirety of the greater tuberosity footprint. The infraspinatus greater excursion after releases and was able to wrap around the greater tuberosity most posteriorly. The decision was made to proceed with a modified repair that would include the somewhat decent anterior cable complex supraspinatus tissue and posterior infraspinatus tissue reducing those over the greater tuberosity and then proceeding with at least a medial row repair of the middle and posterior supraspinatus and supplement as needed with a side to side repair anteriorly and posteriorly. A limited number of anchors was planned to be used given the patient's extremely soft bone and many years of poor nutrition and alcohol abuse. A punch was used to localize placement the first medial row anchor starting anteriorly that was loaded with fiber tape. A suture passer was as well as a tissue grasper was used to pass both ends of this fiber tape through all layers of the tendon at the appropriate level medially based on reasonable excursion and tension of the rotator cuff. The knotless repair suture was then passed through the supraspinatus medially to the anchor with reduction held by cuff grasper. This repair suture was then passed through its own eyelet and secured down and tensioned provisionally reducing the medial row repair anteriorly. The suture was cut flush with the anchor. This process was repeated for the second posterior medial row knotless anchor. Next, a self retrieving suture passer was used to pass fiber link sutures in cinch mode anterior to the first medial row anchor and, between the anchors. The rotator cuff tear had already been provisionally reduced provisionally reduced medially through the knotless medial row repair and these FiberLink sutures were used to best approximate anterior and posterior tissue over the greater tuberosity. The punch was used to localize placement of a lateral row anchor. The punch was delivered into bone rather easily. Another 5.5 mm swivel anchor was selected and cautiously driven into bone laterally containing a fiber tape from the anterior and posterior anchors and the 2 suture lengths. The screw head minimal purchase and fixation. While testing the repair sutures the eyelet was easily pulled out about the screw remarkably leaving the screw in place. The eyelet was removed from the shoulder. The screw was then separately removed in entirety from shoulder as well. Another lateral row anchor was attempted more anteriorly and far less laterally and attempt to find better bone. The punch was delivered here into bone rather easily as well. Another 5.5 mm swivel lock was driven in but sunken rather easily to cavernous soft bone. It was tested and easily pulled out of bone. The screw and eyelet were removed completely. At this point it was clear that the bone was in a limit suture anchor fixation except for the medialmost row. Attention was then turned to the posterior cuff to see what approximation and reduction of the infraspinatus to the medial row repair of the supraspinatus could be obtained. A third medial row anchor, localized with a punch, which had good bone resistance fortunately in this medial zone, and a 5.5 double loaded swivel lock was selected and secured into bone containing 1 set of the fiber tapes from the previously played medial row anchors. The anterior suture lengths were removed. Cuff grasper was used to bring the infraspinatus over this anchor as well as bring the supraspinatus posteriorly to the infraspinatus. A self passing suture passer was used to pass 1 set of fiber wires from this anchor through the posterior supraspinatus and anterior infraspinatus medially and another set more laterally over this anchor at adjacent levels. Starting medially side to side repair was performed using a self locking slipknot. This process was repeated for the lateral side to side repair. At this point there is still 1 FiberTape from each anterior and central medial row anchor. The infraspinatus had additional excursion mobility laterally and posteriorly about the greater tuberosity. The supraspinatus was securely fixated to a single medial row and posteriorly and side to side fashion infraspinatus. The anterior most rotator cable interval and upper border subscapularis was firmly attached to the greater tuberosity. The decision was made to try an additional anchor posteriorly and laterally avoiding the significantly soft area about the greater tuberosity centrally and laterally. The punch was used and was driven by hand through a relatively okay bone. The remaining fiber tapes were brought across the greater tuberosity and then passed from superficial to deep using a self retrieving suture passer through the infraspinatus. An additional 5.5 double loaded swivel lock was loaded with the remaining fiber tapes and secured into bone allowing no sutures to compress the infraspinatus most posteriorly and somewhat laterally to the footprint as well as backing up the medial row repair. Lastly, 1 set of FiberWire sutures from this posterior lateral anchor was then passed through the infraspinatus in a horizontal mattress fashion and tied down by hand using another self locking sliding knot. The rotator cuff was somewhat remarkably completely repaired without any residual defects from the subacromial to the glenohumeral space as the preoperative plan certainly included repairing the subscapularis, anterior supraspinatus, infraspinatus, and was had the potential for the supraspinatus retraction tissue quality to not be irreparable. The infraspinatus repair and side to side repair with supraspinatus was satisfactory. The anteriormost supraspinatus subscapularis rotator cable tissue was secure as well. The medial row only supraspinatus repair was probed and found to be secure as well. No anchors moved or loosen through physiologic shoulder range of motion. The shoulder was drained of arthroscopic fluid. All portal sites were copiously irrigated. These incisions were closed using 3-0 Monocryl in a buried fashion, covered with Mastisol, Steri-Strips, Xeroform, dry gauze, and ABDs. The dressings were covered and secured with Medipore tape. The operative extremity was placed into a sling for immobilization. The patient awoke from anesthesia without complication and was transferred to the recovery room in a stable condition.
== END 2019-10-29 14:50 | disposition home or self-care (01) ==
PROVIDERS: PCP Internal Medicine; Visit Provider Student in an Organized Health Care Education/Training Program
PROC: (CPT 29827; principal; 2019-10-29 07:30)
DX: S46.011A Strain of muscle(s) and tendon(s) of the rotator cuff of right shoulder, initial encounter (principal); M75.21 Bicipital tendinitis, right shoulder; M75.51 Bursitis of right shoulder; M75.41 Impingement syndrome of right shoulder; G89.18 Other acute postprocedural pain; M65.9 Synovitis and tenosynovitis, unspecified; M94.211 Chondromalacia, right shoulder; M83.8 Other adult osteomalacia; F10.10 Alcohol abuse, uncomplicated; W19.XXXA Unspecified fall, initial encounter; G31.2 Degeneration of nervous system due to alcohol
CPT/HCPCS: 29827; 29823; 29826; 76942; L3670; J0690; J1100; J2370; J2405

== ENCOUNTER → 2019-11-08 15:10 | Outpatient (BNVA) | payer MEDICARE, BC, SELFPAY | PROVIDERS: PCP Internal Medicine; Referring Provider Internal Medicine; Visit Provider Student in an Organized Health Care Education/Training Program | DX: S46.011D Strain of muscle(s) and tendon(s) of the rotator cuff of right shoulder, subsequent encounter (principal); X58.XXXD Exposure to other specified factors, subsequent encounter; M72.0 Palmar fascial fibromatosis [Dupuytren] ==

== ENCOUNTER → 2019-12-14 12:59 | Outpatient (BNVA) | payer MEDICARE, BC, SELFPAY | PROVIDERS: PCP Internal Medicine; Visit Provider Student in an Organized Health Care Education/Training Program | DX: Z47.89 Encounter for other orthopedic aftercare (principal); M75.21 Bicipital tendinitis, right shoulder; M75.51 Bursitis of right shoulder; M75.41 Impingement syndrome of right shoulder; I10 Essential (primary) hypertension ==

== ENCOUNTER → 2020-01-25 12:54 | Outpatient (BNVA) | payer MEDICARE, BC, SELFPAY | PROVIDERS: PCP Internal Medicine; Referring Provider Internal Medicine; Visit Provider Student in an Organized Health Care Education/Training Program | DX: S46.011D Strain of muscle(s) and tendon(s) of the rotator cuff of right shoulder, subsequent encounter (principal); X58.XXXD Exposure to other specified factors, subsequent encounter; M75.21 Bicipital tendinitis, right shoulder; M75.51 Bursitis of right shoulder; M75.41 Impingement syndrome of right shoulder; I10 Essential (primary) hypertension | CPT/HCPCS: 99213 ==

== ENCOUNTER → 2020-03-30 13:31 | Outpatient (BNVA) | payer MEDICARE, BC, SELFPAY | PROVIDERS: PCP Internal Medicine; Referring Provider Internal Medicine; Visit Provider Physical Therapy Assistant | DX: Z12.11 Encounter for screening for malignant neoplasm of colon (principal) ==

== ENCOUNTER → 2020-04-19 12:54 | Outpatient (BNVA) | payer MEDICARE, BC, SELFPAY | PROVIDERS: PCP Internal Medicine; Referring Provider Internal Medicine; Visit Provider Student in an Organized Health Care Education/Training Program | DX: Z47.89 Encounter for other orthopedic aftercare (principal); M75.21 Bicipital tendinitis, right shoulder; M75.51 Bursitis of right shoulder; M75.41 Impingement syndrome of right shoulder | CPT/HCPCS: 99213 ==

== ENCOUNTER 2020-04-20 02:07 | Outpatient (CLI) | payer MEDICARE, BC, SELFPAY ==
[2020-04-21 14:42] LABS: COVID-19 RT-PCR UVMMC Result Negative (Negative)
== END 2020-04-20 02:27 ==
PROVIDERS: PCP Internal Medicine; Visit Provider Surgery
DX: Z11.59 Encounter for screening for other viral diseases (principal); Z01.818 Encounter for other preprocedural examination
CPT/HCPCS: U0003

== ENCOUNTER 2020-04-24 06:15 | Day surgery (SDC) | payer MEDICARE, BC, SELFPAY ==
[2020-04-24 06:26] VITALS: BP 115/69; PULSE 56; RESP 17; TEMP 36.4; O2SAT 96
--- NOTE | 2020-04-24 06:40 | W.COLOREPORT ---
Date of service: 04/24/20 Time of Service: : Colonoscopy Report Date of procedure: 04/24/20 Pre-op diagnosis general: Colon Cancer Screening Post-op diagnosis procedure note: same (polyp and melchor-diverticulosis) Procedure: Colonoscopy with polypectomy Surgeon: Shelley Bray Anesthesia proc note operative: other (General/ASA 3/Misha Souza CRNA) Estimated blood loss (mL): 3 Pathology: other (Rectal polyp) Complications: None Disposition: same day Indications: The patient is here for Colonoscopy pre-op. His last screening was in 2010 and was unremarkable. He has no family history of colon cancer. He has not had any bowel habit changes. -Discussed colonoscopy bowel prep as well as the procedure. Discussed possible complications of the procedure to include bleeding, pain, perforation, missed small lesion/polyp, sore throat, aspiration and adverse reaction to the medications. Questions were answered to patient?s satisfaction. No guarantees were implied or given. Prep: Miralax/Dulcolax Procedure Start Time: Procedure End Time: :53 Retraction Time: 18 minutes Findings: One polyp in the rectum at 10 cm Melchor diverticulosis Procedure Description: After informed consent was obtained the patient was taken to the procedure room and placed in a left decubitous position. Monitors were applied and a time out was done. The patients name, date of , procedure, allergies to medications and metal in their body was reviewed. The patient was then sedated. Once sedated and comfortable a rectal exam was done. External exam was normal. Internal exam revealed a normal sphincter tone and no palpable masses. The prostate felt slightly enlarged but smooth. The scope was then introduced and retro-flexed. No internal hemorrhoids were identified. The scope was then advanced to the cecum without difficulty. The ileocecal valve and appendiceal orifice were identified. The prep was good. The scope was then slowly retracted over 18 minutes back into the rectum. Polyps were removed with hot snare and cold forceps in the rectum. There was melchor-diverticulosis noted. It was worse in the right colon. The scope was removed and the patient was woken up and taken back to Same day surgery in stable condition. The patient tolerated the procedure well and there were no immediate complications. Follow up: The patient should follow up in 5 years unless they develop changes in bowel habits or other new gastrointestinal complaints.
--- NOTE | 2020-04-24 06:44 | W.PM.DSUDISC ---
Discharge Plan Disposition Patient Disposition: HOME Condition: Good Discharge Details Reason For Visit: Colon cancer Screening Attending Provider: Shelley Bray Primary Care Provider: Jack Reese Home Meds and New Rx's Prescriptions: Continued carvedilol 3.125 mg Tablet 3.125 mg PO BID Qty: 90 RF: 3 ondansetron HCl [Zofran] 8 mg Tablet 8 mg PO TID PRNRF: 0 lorazepam 1 mg Tablet 1 mg PO HS PRNRF: 0 losartan 50 mg tablet 100 mg PO DAILY RF: 0 omeprazole 40 MG capsule,delayed release(DR/EC) 40 mg PO DAILY RF: 0 amlodipine 5 mg Tablet 5 mg PO DAILY RF: 0 spironolactone 25 mg tablet 25 mg PO BID RF: 0 acetaminophen 500 mg tablet 500 mg PO Q8H PRN (Reason: pain) Qty: 30 RF: 3 Discharge Instructions Instructions: Colorectal Polyps (DC), Diverticulosis (DC) Additional Instructions: Findings: One polyp Diverticulosis Follow up: 5 years Please call if you develop: fevers >101.5 Nausea or Vomiting Abdominal pain that is not transient DAY SURGERY UNIT POST ENDOSCOPY INSTRUCTIONS 1. Because there will be medication in your system for the next 24 hours, you may feel a little sleepy. Your coordination will be affected. Therefore: a. Do not drive or operate dangerous equipment for 24 hours. b. Do not drink alcohol beverages for 24 hours (not even beer). c. Plan to go home and rest for the day. 2. Generally there are no restrictions on your activity after a day or so has gone by, but you may feel a bit fatigued for a few days. 3 After you arrive home you may have a light meal and return to a normal diet as you can tolerate it without feeling sick to your stomach. 4. After surgery, you may feel pain or discomfort. This should be only transient, but if it persists please contact your doctor. 5. If there are any questions regarding the findings of your procedure, please feel free to contact your doctor. 6. If you are unable to contact your doctor with a problem, contact the hospital at [phone]. 7. Continue all your regular medications unless directed otherwise. I understand the above instructions and have no questions. Signature of Patient or Responsible Adult Escort Date/Time Name of Responsible Adult Escort Signature of Nurse Date/Time Activity:: Activity as Tolerated Diet:: high fiber diet Discharge Orders Discharge Orders: Discharge Order (Routine); Ordered 04/24/20 Ordered By: Shelley Bray
[2020-04-24] MEDS: Lactated Ringers 1,000 ML 80 ML IV (06:45)
--- NOTE | 2020-04-24 07:51 | BOWEL_PTH ---
PATIENT: Rick Crystal LOC: [facility] U#:[id number] AGE/SX: 74/M ROOM: RE04/24/[address]: Shelley Bray MD : [id number] BED: DIS: 04/24/2020 SPEC #: [id number] RECD: 04/24/20 12:40 STATUS: MELO REQ #: [id number] VENKAT: 04/24/20 07:[address]: Shelley Bray DEPT: Surgical Specimen RECD BY: Lawanda Wallis ENTERED: 04/24/20 12:41 SP TYPE: Bowel OTHR DR: Jack Reese Tissues: 1 - BIOPSY BOWEL Procedures: GROSS AND MICRO LEVEL 4 Comments: [id number]
[2020-04-24 08:25] VITALS: BP 111/70; PULSE 56; RESP 17; TEMP 36.1; O2SAT 96
== END 2020-04-24 08:48 | disposition home or self-care (01) ==
PROVIDERS: PCP Internal Medicine; Visit Provider Surgery
PROC: 0DJD8ZZ Inspection of Lower Intestinal Tract, Via Natural or Artificial Opening Endoscopic (ICD-10-PCS; CPT 45378; principal; 2020-04-24 07:30)
DX: Z12.11 Encounter for screening for malignant neoplasm of colon (principal); D12.8 Benign neoplasm of rectum; K57.30 Diverticulosis of large intestine without perforation or abscess without bleeding; Z87.19 Personal history of other diseases of the digestive system
CPT/HCPCS: 45385; 45380; 88305

== ENCOUNTER 2020-07-03 14:48 | Outpatient (REF) | payer MEDICARE, BC, SELFPAY ==
[2020-07-03 20:58] LABS: ALT 26 U/L (16-63); AST 18 U/L (15-37); Albumin 3.7 g/dL (3.4-5.0); Alkaline Phosphatase 57 U/L (46-116); BUN 25 mg/dL (7-18); Bilirubin, Total 0.4 mg/dL (0.2-1.0); CREATININE 1.1 mg/dL (0.70-1.30); Calcium 8.7 mg/dL (8.5-10.1); Chloride 105 mmol/L (98-107); Glucose 79 mg/dL (74-106); Potassium 5.6 mmol/L (3.5-5.1); Sodium 138 mmol/L (136-145)
[2020-07-03 21:01] LABS: HCT 36.3 % (40.0-50.0); HGB 11.8 g/dL (13.5-17.5); MCH 32.5 pg (27.0-33.0); MCHC 32.5 % (32.0-36.0); Platelet Count 284 10^3/uL (130-400); RBC 3.63 10^6/uL (4.36-5.78); RDW 12.7 % (11.8-14.1); RDW-SD 47.1 fL; WBC 6.55 10^3/uL (4.4-10.8)
== END 2020-07-03 14:49 | disposition home or self-care (01) ==
LOC: NCHCN 14:48
PROVIDERS: PCP Internal Medicine; Visit Provider Internal Medicine
DX: I10 Essential (primary) hypertension (principal)
CPT/HCPCS: 80053; 85027

== ENCOUNTER 2020-08-15 01:31 | Outpatient (CLI) | payer MEDICARE, BC, SELFPAY ==
--- NOTE | 2020-08-15 10:21 | DI.US_ITS ---
APPROVED REPORT EXAM: Comprehensive 2D, Doppler, and color-flow Echocardiogram Patient Location: Out-Patient [place] Attendant: Summer Jerry RDCS (AE) Indications: Aortic root dilation Other Information Study Quality: Adequate Conclusion Normal left ventricular wall thickness and chamber size. Estimated ejection fraction is 65%. Wall m otion is normal. Normal right ventricular size and systolic function Both atria are normal in size Trileaflet aortic valve with trace regurgitation Mild mitral annular calcification. Trace mitral regurgitation Normal tricuspid valve with trace regurgitation Normal pulmonic valve with trace regurgitation Dilated aortic root, 4.2 cm. Mildly dilated ascending aorta 3.84 cm Compared to echocardiogram of July 2019, no significant change Wall motion Left Ventricle The left ventricle is normal size. The left ventricular systolic function is normal. The left ventric ular ejection fraction is within the normal range. There is normal left ventricular wall thickness. T here is normal LV segmental wall motion. There is no ventricular septal defect visualized. LVEF is 60 -65%. Right Ventricle The right ventricle is normal size. The right ventricular systolic function is normal. Atria The left atrium size is normal. The right atrium size is normal. The interatrial septum is intact wit h no evidence for an atrial septal defect. Aortic Valve The aortic valve is normal in structure. Aortic valve is trileaflet. There is no aortic valvular sten osis. Trace aortic regurgitation. Mitral Valve Mild mitral annular calcification. No evidence of mitral valve stenosis. Trace mitral regurgitation. Tricuspid Valve The tricuspid valve is normal in structure. There is no tricuspid valve stenosis. Trace tricuspid reg urgitation. Unable to assess PA pressure. Pulmonic Valve The pulmonary valve is normal in structure. There is no pulmonic valvular stenosis. Trace pulmonic re gurgitation. Great Vessels Aortic root is mild to moderately dilated.4.21 CM The ascending aorta is mildly dilated.3.84 cm Aorti c arch is normal in caliber. IVC is normal in size and collapses >50% with inspiration. Pericardium There is no pericardial effusion. 2D Dimensions IVSD d PLAX 1.03 cm M: 0.6-1.2 LV Vol A2C d MOD 107.5 mL LVPW d PLAX 1.02 cm M: 0.6 - 1.2 LV Vol A4C d MOD 103.6 mL LVID d PLAX 4.79 cm M: 4.2 - 5.8 LA vol/ BSA A2C s A-L 26.5 mL/m2 LVDs 3.25 cm M: 2.5 - 4.0 LA vol/ BSA A4C s A-L 27.3 mL/m2 Ao Root d 4.21 cm M: 3.1 - 3.7 LA Vol/ BSA Biplane s A-L 27.3 mL/m2 RA Area A4C 16.80 cm2 LA Area A4C s MOD 20.15 cm2 RA Vol/ BSA A4C s A-L 21.4 mL/m2 LA Area A2C s MOD 19.51 cm2 Ao Asc Diam d 3.84 cm M: 2.6 - 3.4 LV EF A4C MOD 62.8 % LV EF Teichholz 58.8 % LV EF A2C MOD 65.2 % LVEF (Pat's) 63.65 % M: 52 - 72 LV EF Biplane MOD 63.7 % LV Volume 77.86 mL M: 62 - 150 SV 67.44 mL LV Volume Index 36.55 mL/m2 M: 34 - 74 SV Index 31.68 mL/m2 LV Vol Biplane MOD 105.9 mL FS 31.15 % M-Mode TAPSE 2.34 cm (M/F) >1.7 LV Diastology MV E' medial 0.098 (>0.07 m/s) E/A Ratio 0.9 LV E/e MED 6.25 (<14) MV E Vmax 0.61 (0.4-1.3 m/s) MV E' lateral 0.083 (>0.1 m/s) MV A Vmax 0.70 (0.4-1.3 m/s) LV E/e LAT 7.35 (<14) MV E/A Ratio 0.86 MV E/E' medial 6.29 MV E/E' lateral 7.39 Aortic Valve LVOT Area 3.76 cm2 AoV Area Vmax 3.53 cm2 LVOT Vmax 1.26 m/s AoV Area/ BSA (Vmax) 1.66 cm2/m2 LVOT Mean Donato. 0.76 m/s BENITO Mean Donato. 3.05 cm2 LVOT Peak Grad 6.4 mmHg BENITO Mean Donato. Index 1.43 cm2/m2 LVOT Mean Grad 2.8 mmHg LVOT VTI 0.263 m LVOT Diam s 2.15 cm AoV Vmax 1.34 m/s Velocity Ratio 0.94 AoV Mean Donato. 0.94 m/s AoV Peak Grad 7.2 mmHg LVOT SV 98.92 mL AoV Mean Grad 4.0 mmHg AoV VTI 0.279 m AoV Area VTI 3.54 cm2 AoV Area/ BSA (VTI) 1.67 cm/m2 Mitral Valve MV DT 253 (160-240 msec) MV PHT 73 msec MV Area PHT 3.00 cm2 Pulmonary Valve PV Vmax 1.09 (0.5-1.5 m/s) RVOT Peak Gr. 3.38 mmHg PV Peak Grad 4.8 mmHg RVOT Mean Gr. 1.60 mmHg PV Mean Grad 2.6 mmHg RVOT VTI 0.196 m PV VTI 0.229 m RVOT Vmax 0.92 m/s
== END 2020-08-15 01:51 ==
PROVIDERS: PCP Internal Medicine; Visit Provider Internal Medicine
DX: I77.810 Thoracic aortic ectasia (principal)
CPT/HCPCS: 93306

== ENCOUNTER 2020-11-13 13:55 | Outpatient (CLI) | payer MEDICARE, BC, SELFPAY ==
--- NOTE | 2020-11-13 13:30 | DI.RAD_ITS ---
Exam(s) XR KNEE RT 4V AP,LAT,MURIEL,PAT EXAM: XR KNEE RT 4V AP,LAT,MURIEL,PAT CLINICAL HISTORY: knee pain. TECHNIQUE: 2D digital imaging was performed. COMPARISON: CR XR KNEE LT 3V AP,LAT,MURIEL from 06/14/2019 FINDINGS: There is no evidence of fracture but there is a small amount of increased joint fluid. There are mod erate degenerative changes the medial aspect of the patellofemoral compartment. More prominent narro wing is noted in the medial compartment of the knee. Normal height evident in the lateral compartmen t. IMPRESSION: Degenerative changes in the medial patellofemoral compartments. Joint effusion. No osseous lesions. DATA REPOSITORY: RADIATION DOSE DELIVERED:
== END 2020-11-13 13:56 | disposition home or self-care (01) ==
LOC: DIORS 13:55
PROVIDERS: PCP Internal Medicine; Referring Provider Internal Medicine; Visit Provider Student in an Organized Health Care Education/Training Program
DX: M25.561 Pain in right knee (principal); M17.11 Unilateral primary osteoarthritis, right knee
CPT/HCPCS: 99214; 73564

== ENCOUNTER 2020-11-20 13:56 | Outpatient (CLI) | payer MEDICARE, BC, SELFPAY ==
--- NOTE | 2020-11-20 13:30 | DI.RAD_ITS ---
Exam(s) XR STANDING ALIGNMENT XR KNEE RT 1V EXAM: XR STANDING ALIGNMENT CLINICAL HISTORY: preop planning. TECHNIQUE: 2D digital imaging was performed. Standing AP views were performed from the pelvis throu gh the ankles. A lateral view of the right knee with COMPARISON: CR XR KNEE RT 4V AP,LAT,MURIEL,PAT from 11/13/2020 CR XR KNEE RT 4V AP,LAT,MURIEL,PAT from 11/13/2020 CR XR KNEE RT 1V from 11/20/2020 CR XR KNEE RT 1V from 11/20/2020 FINDINGS: BONES: No acute fracture is present. No bony destructive lesion is seen. JOINTS: Knees: Roughly symmetric bilateral medial femoral tibial joint space narrowing and mild varus angulation. The ankle and hip joints are unremarkable. SOFT TISSUE: Normal. IMPRESSION: Moderate to severe degenerative changes of both medial femoral tibial joints. No significant leg murray gth discrepancy. DATA REPOSITORY: RADIATION DOSE DELIVERED:
== END 2020-11-20 13:57 | disposition home or self-care (01) ==
LOC: DIORS 13:56
PROVIDERS: PCP Internal Medicine; Referring Provider Internal Medicine; Visit Provider Physician Assistant
DX: M17.11 Unilateral primary osteoarthritis, right knee (principal); Z01.818 Encounter for other preprocedural examination
CPT/HCPCS: 73560; 77073

== ENCOUNTER 2020-11-27 03:06 | Outpatient (CLI) | payer MEDICARE, BC, SELFPAY ==
[2020-11-27 10:04] LABS: HCT 38.3 % (40.0-50.0); HGB 12.8 g/dL (13.5-17.5); MCH 33.2 pg (27.0-33.0); MCHC 33.4 % (32.0-36.0); MCV 99.2 fL (80-95); Platelet Count 238 10^3/uL (130-400); RBC 3.86 10^6/uL (4.36-5.78); RDW 13.2 % (11.8-14.1); RDW-SD 47.8 fL; WBC 5.38 10^3/uL (4.4-10.8)
[2020-11-27 10:37] LABS: Anion Gap 10.7 mmol/L (3-11); BUN 30 mg/dL (7-18); CO2 23.3 mmol/L (21.0-32.0); CREATININE 1.3 mg/dL (0.70-1.30); Calcium 8.8 mg/dL (8.5-10.1); Chloride 106 mmol/L (98-107); Estimated GFR 54.26 (mL/min/1.73m2); Glucose 103 mg/dL (74-106); Sodium 140 mmol/L (136-145)
[2020-11-27 12:57] LABS: Source Nasal/Nares
[2020-11-27 18:38] LABS: COVID-19 PCR Negative (Negative)
== END 2020-11-27 03:07 | disposition home or self-care (01) ==
LOC: LBO 03:06
PROVIDERS: PCP Internal Medicine; Visit Provider Student in an Organized Health Care Education/Training Program
DX: M25.561 Pain in right knee (principal); M17.11 Unilateral primary osteoarthritis, right knee; Z20.822 Contact with and (suspected) exposure to COVID-19; Z01.818 Encounter for other preprocedural examination; Z01.812 Encounter for preprocedural laboratory examination
CPT/HCPCS: 36415; 80048; 85027; 87635

== ENCOUNTER 2020-11-29 07:46 | Day surgery (SDC) | payer MEDICARE, BC, SELFPAY ==
[2020-11-29] VITALS (8 sets, daily range): BP systolic 114–139; BP diastolic 64–82; PULSE 50–62; RESP 16–25; TEMP 36.1–36.3; O2SAT 95–99; BMI 36.5
--- NOTE | 2020-11-29 06:49 | W.ANESPRE ---
General Info Date of Service Date Performed: 11/29/20 Height: 5 ft 8 in Weight: 108.862 kg Body Mass Index (BMI): 36.5 Surgical Procedure: Operation Date: 11/29/20 09:55 Proposed Procedures Side Surgeon p Knee Total Arthroplasty Right Sergio Woods MD Meds Allergies and Home Medications Allergies Allergy/AdvReac Type Severity Reaction Status Date / Time No Known Allergies Allergy Verified 11/29/20 08:14 Home Medication Medication Instructions Recorded carvedilol 3.125 mg PO BID #90 tab 08/04/19 lorazepam 1 mg PO HS PRN 09/08/19 losartan 100 mg PO DAILY 09/08/19 omeprazole 40 mg PO DAILY 09/08/19 ondansetron HCl [Zofran] 8 mg PO TID PRN 09/08/19 acetaminophen 500 mg PO Q8H PRN #30 tab 10/13/19 amlodipine 5 mg PO DAILY 10/28/19 spironolactone 25 mg PO BID 10/28/19 mirtazapine 15 mg tablet 15 mg PO DAILY 11/13/20 naproxen 500 mg tablet 500 mg PO BID 11/13/20 Current Visit Medications: Current Medications Generic Name Dose Route Start Last Admin Trade Name Freq PRN Reason Stop Dose Admin Acetaminophen 1,000 mg 11/29/20 06:00 Acetaminophen 500 Mg Tab PO 11/29/20 16:00 PREOP MAEGAN Celecoxib 400 mg 11/29/20 06:00 Celecoxib 200 Mg Cap PO 11/29/20 16:00 PREOP MAEGAN Gabapentin 300 mg 11/29/20 06:00 Gabapentin 300 Mg Cap PO 11/29/20 16:00 PREOP MAEGAN Tranexamic Acid 1,000 mg/ 60 mls @ 360 mls/hr 11/29/20 06:00 Sodium Chloride IVPB 11/29/20 16:00 PREOP MAEGAN Tranexamic Acid 1,000 mg/ 60 mls @ 360 mls/hr 11/29/20 06:00 Sodium Chloride IVPB 11/29/20 16:00 DIRECTED MAEGAN Ringer's Solution 1,000 mls @ 80 mls/hr 11/29/20 06:00 IV 12/28/20 23:59 INFUSION MAEGAN Cefazolin Sodium 2,000 mg/ 100 mls @ 200 mls/hr 11/29/20 06:00 Sodium Chloride IVPB 11/29/20 16:00 PREOP MAEGAN IV Miscellaneous Supplies 1 each 11/29/20 06:00 Iv Access IV 12/28/20 23:59 DIRECTED MAEGAN Sodium Chloride 0 ml 11/29/20 06:00 Normal Saline Flush 10 Ml Syr IV 12/28/20 23:59 PRN PRN Sodium Chloride 0 ml 11/29/20 06:00 Normal Saline 10 Ml Vial IJ 12/28/20 23:59 DIRECTED PRN Sterile Water 0 ml 11/29/20 06:00 Water,Injection,Sterile 10 Ml Vial IJ 12/28/20 23:59 DIRECTED PRN PFSH Active Problems Active Problems: Problem Status Onset Code Traumatic tear of right rotator cuff S46.011A Tendonitis of long head of biceps brachii of right shoulder M75.21 Bursitis of right shoulder M75.51 Impingement syndrome of right shoulder M75.41 Tubular adenoma of colon D12.6 Osteoarthritis of right knee M17.11 Dupuytren's contracture of right hand M72.0 Medical History Medical History Alcohol withdrawal Alcohol withdrawal seizure with complication Alcoholic encephalopathy Aspiration pneumonia Delirium Dupuytren's contracture of right hand s/p partial palmar fasciectomy DOS: 10/13/19 Dyslipidemia Hx of adenomatous polyp of colon 1997 Hx of diverticulitis of colon Hypertension Hypokalemia Numbness and tingling in both hands Obesity (BMI 30.0-34.9) Ocular migraine pt. denies this Right rotator cuff tear Tinnitus Surgical History Surgical History Colonoscopy - MAC 2001,2010-nl EGD - MAC (05/19/17) H/O hand surgery Pt. states he doesn't remember having a seizure History of tonsillectomy Hx of rotator cuff surgery Tobacco Smoking/Tobacco Use Status: Current-Occasional Tobacco Type: cigars Alcohol Alcohol Intake: current Alcohol intake frequency: 3 or more drinks per day Alcohol type: hard liquor Substance Use Substance use: Never Substance use type: does not use Vital Signs and Lab Results Vital Signs Most Recent Vital Signs in EMR: Temp Pulse Resp BP Pulse Ox 36.2 C L 62 20 139/82 99 11/29/20 07:54 11/29/20 07:54 11/29/20 07:54 11/29/20 07:54 11/29/20 07:54 Lab Results Blood Type / Crossmatch: No Data to Display Complete Blood Count: White Blood Count 5.38 10^3/uL (4.4-10.8) 11/27/20 09:40 11/27/20 Red Blood Count 3.86 10^6/uL (4.36-5.78) L 11/27/20 09:40 11/27/20 Hemoglobin 12.8 g/dL (13.5-17.5) L 11/27/20 09:40 11/27/20 Hematocrit 38.3 % (40.0-50.0) L 11/27/20 09:40 11/27/20 Platelet Count 238 10^3/uL (130-400) 11/27/20 09:40 11/27/20 Complete Metabolic Panel: Sodium Level 140 mmol/L (136-145) 11/27/20 09:40 11/27/20 Potassium Level 5.0 mmol/L (3.5-5.1) 11/27/20 09:40 11/27/20 Chloride Level 106 mmol/L (98-107) 11/27/20 09:40 11/27/20 Carbon Dioxide Level 23.3 mmol/L (21.0-32.0) 11/27/20 09:40 11/27/20 Blood Urea Nitrogen 30 mg/dL (7-18) H 11/27/20 09:40 11/27/20 Creatinine 1.3 mg/dL (0.70-1.30) 11/27/20 09:40 11/27/20 Estimated GFR/1.73 m2 54.26 (mL/min/1.73m2) 11/27/20 09:40 11/27/20 Calcium Level 8.8 mg/dL (8.5-10.1) 11/27/20 09:40 11/27/20 Glucose Level 103 mg/dL (74-106) 11/27/20 09:40 11/27/20 Liver Function Panel: No Data to Display Coagulation Panel: No Data to Display Cardiac Panel: No Data to Display Arterial Blood Gas: No Data to Display Venous Blood Gas: No Data to Display Pancreas Panel: No Data to Display Thyroid Panel: No Data to Display Infectious Disease: Coronavirus (COVID-19)(PCR) Negative (Negative) 11/27/20 09:47 11/27/20 Coronavirus 2019 Source Nasal/Nares 11/27/20 09:47 11/27/20 Blood Cultures: No Data to Display Toxicology Panel: No Data to Display Imaging and Studies Imaging and Studies Echocardiogram Summary: 08/2020:LVEF 65%, trace MR/TR/VT. dilated Ao root 4.2 cm. Anesthesia Assessment and Plan Anesthesia History Personal History: No History of Anesthesia Complications Family History: No Family History of Anesthesia Complications Exercise Tolerance Exercise Tolerance: Metabolic Equivalents>4 Pertinent Negatives Pertinent Negatives: No Symptoms of GERD, No Major Cardiovascular Symptoms or Complaints and No Major Pulmonary Symptoms or Complaints Cardiac & Pulmonary Exam Cardiac Exam: Normal S1/S2 Heart Sounds Pulmonary Exam: Clear Bilateral Breath Sounds Airway Exam Known Difficult Airway: No Mallampati Class: 3 Mouth Opening: Normal (> 3cm) Thyromental Distance: Less than 3 cm Neck Range of Motion: Full ROM Neck Circumference: Normal Teeth Condition: Normal Dentition ASA Classification ASA Score: ASA 2 Emergency Case?: No NPO Status NPO Status: NPO Clears >2 hours, Solids >8 hours Anesthesia Plan Resuscitation Status: Full Code Anesthesia Technique: Spinal Anesthesia Airway Planned: Natural Airway Pain Management: Surgeon and patient request nerve block Monitors Used: Standard Monitors Preoperative Comments:: 74 yo male for TKA. PMHx of alcohol abuse, HTN, GERD Previous colo with prop only required 25 mg ephedrine. Previous glide 4 grade 1, difficult mask which improved with NMBD - still two hand mask.
[2020-11-29] MEDS: Lactated Ringers 1,000 ML 80 ML IV (08:31)
[2020-11-29] MEDS: Celecoxib 200 MG CAP 400 MG PO (08:39)
[2020-11-29] MEDS: Acetaminophen 500 MG TAB 1000 MG PO (08:39)
[2020-11-29] MEDS: Gabapentin 300 MG CAP PO (08:39)
--- NOTE | 2020-11-29 09:56 | PDOC.DSDIS_ITS ---
Documented by User: ROBYN Heath 11/29/20 10:02 Discharge Plan Disposition Patient Disposition: HOME Condition: Good Discharge Details Reason For Visit: R TKR Attending Provider: Sergio Woods Primary Care Provider: Jack Reese Home Meds and New Rx's Prescriptions: New acetaminophen 500 mg capsule 1,000 mg PO Q8H PRN PRNQty: 90 RF: 0 aspirin 81 mg tablet,delayed release (DR/EC) 81 mg PO BID Qty: 60 RF: 0 celecoxib 200 mg capsule 200 mg PO BID Qty: 60 RF: 0 gabapentin 300 mg capsule 300 mg PO QHS Qty: 14 RF: 0 oxycodone 5 mg tablet 5 mg PO Q4H PRN MDD 30mg PRN (Reason: pain) Qty: 20 RF: 0 Continued mirtazapine 15 mg tablet 15 mg PO DAILY RF: 0 carvedilol 3.125 mg Tablet 3.125 mg PO BID Qty: 90 RF: 3 ondansetron HCl [Zofran] 8 mg Tablet 8 mg PO TID PRNRF: 0 lorazepam 1 mg Tablet 1 mg PO HS PRNRF: 0 losartan 50 mg tablet 100 mg PO DAILY RF: 0 omeprazole 40 MG capsule,delayed release(DR/EC) 40 mg PO DAILY RF: 0 amlodipine 5 mg Tablet 5 mg PO DAILY RF: 0 spironolactone 25 mg tablet 25 mg PO BID RF: 0 Discontinued naproxen 500 mg tablet 500 mg PO BID RF: 0 acetaminophen 500 mg tablet 500 mg PO Q8H PRN (Reason: pain) Qty: 30 RF: 3 Discharge Instructions Additional Instructions: Total Knee Discharge Instructions Activity: The most important activity is to walk. You should try to take short walks a few times a day. It is important that when resting you work on keeping the knee straight. Avoid putting a pillow behind the knee as this will encourage flexion. Work on range of motion exercises as provided by Physical Therapy. - Start outpatient physical therapy within 2 weeks. - You should wear the JOE hose on both legs for 2 weeks. You may remove these at night. You may also use any compression sock in place of the JOE hose. Dressing: You may remove the Hadley wrap on your leg 2 days after your surgery and put on the JOE stocking given to you from the hospital. Keep the surgical dressing (underneath the HADLEY wrap) in place for at least one week. After the first week it may be removed and replaced with light gauze and tape or nothing. The wound and dressing may get wet after 3 days but avoid soaking the dressing or otherwise it will need to be changed. Many people prefer covering the dressing with cling wrap (saran wrap) to minimize it from getting soaked. If it gets wet, just pat dry. If it starts to peel off then it will need to be changed. Medications: - You should take Tylenol and anti-inflammatory Celebrex as your primary pain control medications. If the Celebrex is too expensive or not covered, please call the office for another alternative (Advil/Ibuprofen or Naproxen/Aleve) - You have been prescribed a stronger pain medication Oxycodone for breakthrough pain, take as needed as prescribed. - Continue to take your omeprazole to help reduce stomach acid and reflux. - You have been prescribed Gabapentin to take at night for restlessness and nerve pain. - You will be taking Aspirin 81mg twice a day for DVT prevention unless instructed otherwise. - If you have constipation you should take Colace or Miralax (both ove [id number]). It takes most people 3-4 days to have a bowel movement. Follow-up: 2 weeks If you have any acute concerns or questions, please do not hesitate to contact the office at [phone]. You may contact Dr. Woods with any questions after hours through the hospital at [phone] or on his cell phone at [phone]. Stand Alone Forms: Anesthesia Discharge Inst., Axel Martin ([facility]) Referrals: Sergio Woods MD [ [facility] STAFF PHYSICIAN] - Equipment/Supplies: Walker Activity:: Activity as Tolerated Shower/Bathe:: 72 hours Diet:: As Tolerated Discharge Orders Discharge Orders: Discharge Order (Routine); Ordered 11/29/20 Ordered By: Sergio Woods DS: Diagnosis Discharge Diagnosis (1) Osteoarthritis of right knee: Status: Acute (2) History of total right knee replacement (TKR): Status: Acute Documented by User: Sergio Woods MD 11/29/20 14:56 Discharge Plan Disposition Patient Disposition: HOME Condition: Good Discharge Details Reason For Visit: R TKR Attending Provider: Sergio Woods Primary Care Provider: Jack Reese Home Meds and New Rx's Prescriptions: New acetaminophen 500 mg capsule 1,000 mg PO Q8H PRN PRNQty: 90 RF: 0 aspirin 81 mg tablet,delayed release (DR/EC) 81 mg PO BID Qty: 60 RF: 0 celecoxib 200 mg capsule 200 mg PO BID Qty: 60 RF: 0 gabapentin 300 mg capsule 300 mg PO QHS Qty: 14 RF: 0 oxycodone 5 mg tablet 5 mg PO Q4H PRN MDD 30mg PRN (Reason: pain) Qty: 20 RF: 0 Continued mirtazapine 15 mg tablet 15 mg PO DAILY RF: 0 carvedilol 3.125 mg Tablet 3.125 mg PO BID Qty: 90 RF: 3 ondansetron HCl [Zofran] 8 mg Tablet 8 mg PO TID PRNRF: 0 lorazepam 1 mg Tablet 1 mg PO HS PRNRF: 0 losartan 50 mg tablet 100 mg PO DAILY RF: 0 omeprazole 40 MG capsule,delayed release(DR/EC) 40 mg PO DAILY RF: 0 amlodipine 5 mg Tablet 5 mg PO DAILY RF: 0 spironolactone 25 mg tablet 25 mg PO BID RF: 0 Discontinued naproxen 500 mg tablet 500 mg PO BID RF: 0 acetaminophen 500 mg tablet 500 mg PO Q8H PRN (Reason: pain) Qty: 30 RF: 3 Discharge Instructions Additional Instructions: Total Knee Discharge Instructions Activity: The most important activity is to walk. You should try to take short walks a few times a day. It is important that when resting you work on keeping the knee straight. Avoid putting a pillow behind the knee as this will encourage flexion. Work on range of motion exercises as provided by Physical Therapy. - Start outpatient physical therapy within 2 weeks. - You should wear the JOE hose on both legs for 2 weeks. You may remove these at night. You may also use any compression sock in place of the JOE hose. Dressing: You may remove the Hadley wrap on your leg 2 days after your surgery and put on the JOE stocking given to you from the hospital. Keep the surgical dressing (underneath the HADLEY wrap) in place for at least one week. After the first week it may be removed and replaced with light gauze and tape or nothing. The wound and dressing may get wet after 3 days but avoid soaking the dressing or otherwise it will need to be changed. Many people prefer covering the dressing with cling wrap (saran wrap) to minimize it from getting soaked. If it gets wet, just pat dry. If it starts to peel off then it will need to be changed. Medications: - You should take Tylenol and anti-inflammatory Celebrex as your primary pain control medications. If the Celebrex is too expensive or not covered, please call the office for another alternative (Advil/Ibuprofen or Naproxen/Aleve) - You have been prescribed a stronger pain medication Oxycodone for breakthrough pain, take as needed as prescribed. - Continue to take your omeprazole to help reduce stomach acid and reflux. - You have been prescribed Gabapentin to take at night for restlessness and nerve pain. - You will be taking Aspirin 81mg twice a day for DVT prevention unless instructed otherwise. - If you have constipation you should take Colace or Miralax (both [id number]). It takes most people 3-4 days to have a bowel movement. Follow-up: 2 weeks If you have any acute concerns or questions, please do not hesitate to contact the office at [phone]. You may contact Dr. Woods with any questions after hours through the hospital at [phone] or on his cell phone at [phone]. Stand Alone Forms: Anesthesia Discharge Inst., Axel Martin ([facility]) Referrals: Sergio Woods MD [ [facility] STAFF PHYSICIAN] - Equipment/Supplies: Walker Activity:: Activity as Tolerated Shower/Bathe:: 72 hours Diet:: As Tolerated Discharge Orders Discharge Orders: Discharge Order (Routine); Ordered 11/29/20 Ordered By: Sergio Woods
[2020-11-29] MEDS: ceFAZolin 2,000 MG in Normal Saline 100 ML 200 MG IVPB (10:42)
--- NOTE | 2020-11-29 10:54 | W.ANESNERVE ---
Nerve Block Single Injection Procedure Date and Time Date Performed: 11/29/20 Procedure Start: 10:33 Location Where Procedure Performed Procedure Location: PACU Reason Performed: Postoperative Analgesia Requesting Provider: Sergio Woods Timeout Performed Timeout Performed: Yes Monitoring Used ECG, Blood Pressure and SpO2 Sterility Sterility: Hand Hygiene, Surgical Cap, Surgical Mask and Sterile Gloves Sedation Given During Procedure Sedation Given (Indicate Dose Given): No Sedation given Patient Mental Status Patient Mental Status: Awake Nerve Block 1st Nerve Block: Laterality: Right Block Type: Adductor Canal Needle / Catheter Used: 100mm SonoPlex II Local Anesthetic Bolus (Indicate Dose Given): Lidocaine used for local infiltration of skin, Injected in 3-5ml increments after negative blood aspiration and Bupivacaine 0.375% Dose:: 10 mL Additives (Indicate Dose Given): None Ultrasound: Sterile probe cover and gel used Ultrasound Image Saved?: Yes Nerve Stimulator: Not Used Paresthesia: None Procedure Tolerated: No Complications Procedure Outcome: Successful Performed By: Floyd Dillard
[2020-11-29] MEDS: Ketorolac 30 MG/ML VIAL (11:09)
[2020-11-29] MEDS: Normal Saline 20 ML VIAL (11:11)
[2020-11-29] MEDS: Bupivacaine 0.25% Pres-Free 30 ML VIAL (11:11)
--- NOTE | 2020-11-29 12:06 | ROE_ITS ---
Date of service: 11/29/20 Time of Service: 12:06 Operative Note Operative Note DATE OF PROCEDURE: 11/29/20 PRE-OP DIAGNOSIS: Right Knee Osteoarthritis POST-OP DIAGNOSIS: same PROCEDURE: Right Total Knee Replacement SURGEON: Sergio Woods MAMMOGRAPHY SUPERVISOR: Rigo Basilio Refer to Anesthesia Record ESTIMATED BLOOD LOSS: 100 PATHOLOGY: none sent TOURNIQUET TIME: 0 COMPLICATIONS: None Patient was transported to: PACU Patient's condition: stable Implants: 1. Depuy Attune Cementless Cruciate Retaining Femoral Component, Size 7 2. Depuy Attune Cementless Rotating Platform Tibial Component, Size 7 3. Depuy Attune 7x6mm CR/RP Poly 4. Depuy Attune Patellar Component, Size 38 Indications: I have seen Rick in clinic for symptoms of knee arthritis, confirmed with radiographic findings. Rick has exhausted nonoperative methods and was having significant limitations in daily function and desired better function and less pain. I discussed the technical details of a knee replacement. I explained the risks of the procedure to include, but not limited to, bleeding, infection, pain, stiffness, fracture, damage to nerves and vessels, damage to muscles and tendons, loosening, need for repeat procedure, blood clot and cardiopulmonary demise. Despite these risks, he elected to proce ed. Findings: There was significant signs of arthritis throughout the knee. Procedure Description: Rick was greeted in the preoperative holding area where the correct side was identified and marked. The consent was reviewed with the patient and signed. The history and physical was updated. All questions were answered. Preoperative medications were administered: Acetaminophen 1000mg, Celebrex 400mg, and Gabapentin 300mg. An adductor canal block was then administered by the anesthesia team in the PACU. He was taken back to the operating room. A spinal anesthestic was then administered. The patient was placed into the supine position on the operating room table. A nonsterile tourniquet was placed high onto the leg but only used for cementing. Posts were placed for positioning during the procedure. All bony prominences were well padded. Prophylactic antibiotics in the form of Cefazolin were administered. 1g of Tranxemic Acid was given intravenously within 30 minutes of incision. The right leg was then prepped with Chloraprep and draped in a standard fashion with impervious stockinette. A second prep with Chloraprep was performed prior to application of Iodine impregnated skin protection. A timeout to confirm correct identity, side and site, procedure, allergies, anesthesia, and medical concerns was performed. With the knee in some flexion, a midline incision was made overlying the knee. Full thickness skin flaps were raised once the extensor mechanism was encounter ed. These were raised medially and laterally. Any bleeding was controlled with electrocautery. Once the extensor mechanism was fully exposed, a medial parapatellar arthrotomy was performed in a flexed position. All bleeding from the arthrotomy and the geniculate arteries was coagulated. A medial subperiosteal peel was performed with electrocautery to the midcoronal plane. The fat pad was removed while keeping the patellar tendon protected. The anterior distal femur synovium was removed for later visualization. The ACL and PCL were resected and the anterior horn of the lateral meniscus was transected. The knee was then flexed with the patella everted. Large osteophytes from the tibia were removed. Using a step drill, and based on preoperative templating, the femoral canal was entered. This was done with a step drill without any difficulty. The intramedullary distal femoral cut guide was inserted, set to a 6 degree valgus cut and 9mm cut thickness. The distal femoral cut guide was then held in position and pinned. With the soft tissues protected, the distal cut was performed. This was passed over a few times to ensure a planar cut. I then turned attention to the tibia. The extramedullary guide was placed onto the leg. The distal aspect was slid medial to adjust for position of center of ankle and stay in line with shaft of the tibia. Approximately 5 degrees of posterior slope was kept in the proximal cutting guide. The center of the guide was aligned with the PCL. The stylus was used to assess cut thickness. The medial side, most involved side, was set for a 3mm cut, corresponding to 9mm laterally. This was then held in position and pinned into place with 2 additional pins and a cross pin for stability. The medial and lateral collateral ligaments were protected and the cut was performed. With this completed, it was assessed and noted to be of appropriate dimensions. The guide was removed. A spacer block was inserted and the knee was brought into extension. The 6mm spacer block provided full extension, without hyperextension and with stability of both the medial and lateral collateral ligaments was assessed. The pins from the femur and the tibia were then removed. The distal femur was then sized. The anterior stylus was placed onto the lateral ridge of the anterior femur. This indicated a size 7 femur. The external rotation of the guide was adjusted to 3 degrees to match the epicondylar axis, perpendicular to [place]?s line. The 4-in-1 cutting guide was the placed. The posterior medial femur cut was evaluated and appeared of good thickness. The spacer block was inserted underneath the cutting guide and stability was confirmed in 90 degrees of flexion. An josephine wing was used to confirm appropriate position of the anterior cut to avoid notching. This cutting guide was ensured to be flush on the cut surface and then pinned into place with headed pins. While protecting the soft tissues, quad tendon, and col lateral ligaments, the anterior and posterior cuts were performed with a saw. The central two pins were removed and the posterior and anterior chamfers were cut next. The notch-cutting guide was placed. This was pinned to lateralize the femoral component as much as possible while keeping it flush on the cut surface. This was then pinned into position. A reciprocating saw was used to make the notch cut. A rasp smoothed the cut surfaces. The medial and lateral menisci were removed. A trial femoral component was then inserted, impacted down to the cut surfaces, and the lug holes were drilled. A provisional trial tibial component was placed and the knee was brought through range of motion. There was noted to be excellent extension and flexion. There was no significant instability. The patella was tracking without thumbs. A size 6mm polyethylene component provided the best range of motion and stability with less than 2mm gapping with medial and lateral stress and full extension without significant hyperextension. The tibial cut surface was fully exposed. The tibia was then sized as a 7. The tibia had been previously marked during trialing to correspond to the center of the tibial component to help with rotation. The trial was aligned to this rigo, approximately rotated to the medial 1/3rd of the tibial tubercle. The trial was pinned into place. The tibia was prepared with a reamer and a keel punch and lug holes. The knee was then brought into extension and the patella was measured as 26mm. Using the patellar clamp and cut guide, this was resected to a flat surface with at least 13mm of thickness remaining. The size 38 patella fit the best. This was oriented and then clamped into position. The lugs were drilled. The trial components were removed. The final components were opened on the back table. The periosteal and capsular tissues, especially posteriorly, around the knee were then systematically injected with a periarticular cocktail consisting of 50cc 0.25% Marcaine, 30mg Ketorolac, 20cc of Exparal and 50cc of injectable saline. The knee was thoroughly irrigated with a pulse lavage and dried. Irrisept was also used to irrigate the tissues. On the back table, with the implants opened, the cement was mixed. One batch of high viscosity cement was prepared with vacuum assistance. After the cement was ready a small amount was placed on the cut surface of the patella and the patellar button was clamped into position and held. While the cement was hardening, the cementless knee components were placed. Starting with the tibial component, the tibia was subluxed anteriorly and the lug holes of the component were lined up. The tibia was then impacted with an impactor and mallet until the tibial component was in contact with the tibia. The final polyethylene component was inserted. Then, the femoral component was inserted. The lug holes were aligned and the component was impacted into position. The knee was irrigated with Irrisept chlorhexadine solution. This was allowed to sit in the knee for 3 minutes. After the cement had finally cured, approximately 15min, the clamp was removed from the patella and the knee was taken through range of motion. The patella was tracking with a no-thumbs technique. The capsule was then reapproximated with a No. 1 Vicryl at multiple locations. The capsule was finally closed with a No. 2 Stratafix, barbed suture. The second dosing of 1g TXA was started. Deep tissues were then reapproximated with 0 Vicryl and 2-0 Vicryl. The skin was closed with a running 3-0 Monocryl in a subcuticular fashion. This was reinforced with skin glue. A Mepilex silver dressing was applied along with a [id number] PRO wrap. A CryoCuff was applied. Rick was transferred to the hospital bed without difficulty an suffering no apparent complication. Rick has a good prognosis. Physical therapy will start today and without restrictions, weight-bearing as tolerated. Aspirin 81mg BID will be used for DVT prophylaxis.
--- NOTE | 2020-11-29 12:52 | W.ANESPOSTOP ---
Postoperative Evaluation Date, Time and Location Date Performed: 11/29/20 Time Performed: 12:53 Patient Location: Day Surgery Unit Vital Signs Most Recent Imported Vital Signs: Most Recent Vital Signs Temp Pulse Resp BP Pulse Ox 36.1 C L 57 L 18 121/73 98 11/29/20 12:40 11/29/20 12:40 11/29/20 12:40 11/29/20 12:40 11/29/20 12:40 Pain Score Most Recent Pain Score: Most Recent Pain Score Pain Level 0 11/29/20 12:40 Assessment Mental Status: Awake (Alert & Oriented to Patient Baseline) Airway and Respiratory Function: Patent airway with normal (patient baseline) respiratory exam Cardiovascular Function: Hemodynamically Stable Hydration Status: Adequately Hydrated Nausea & Vomiting: No Nausea or Vomiting Pain: Pain is tolerable per patient Peripheral Nerve Block: Regional nerve block not resolved at time of post operative discharge
[2020-11-29] MEDS: oxyCODONE 5 MG TAB PO (13:03)
--- NOTE | 2020-11-29 13:40 | IN_ITS ---
Date of service: 11/29/20 Time of Service: 13:40 PT Notes Visit Reasons: R TKR Physical Therapy Day Surgery Initial Evaluation Date: 11/30/2020 Referring Doctor: PT Orders: PT CONSULT: Precautions: Patient Profile/Admitting Diagnosis: Patient is a 74-year-old male patient who has degenerative joint disease of the R knee and is S/P right total knee arthroplasty on postoperative day 0. PMHX: Medical History (Updated 11/13/20 @ 14:00 by ROBYN Christopher) Alcohol withdrawal Pt. states he hasn't drank for 6+ months Alcohol withdrawal seizure with complication Alcoholic encephalopathy Aspiration pneumonia Delirium Dupuytren's contracture of right hand s/p partial palmar fasciectomy DOS: 10/13/19 Dyslipidemia Hx of adenomatous polyp of colon 1997 Hx of diverticulitis of colon Hypertension Hypokalemia Numbness and tingling in both hands Obesity (BMI 30.0-34.9) Ocular migraine pt. denies this Right rotator cuff tear Tinnitus Surgical History (Updated 04/20/20 @ 10:45 by Bunny Morataya) Colonoscopy - MAC 2001,2010-nl EGD - MAC (05/19/17) H/O hand surgery History of tonsillectomy Hx of rotator cuff surgery Social History/Home Situation: Lives with significant other in a private home with 3 steps to enter without rails. Independent with all aspects of ADLs prior to surgery although he has had increasing difficulty to perform them. Likes to samaniego. Equipment Owned/DME: None Subjective: Reported just mild ache in the R knee with weight bearing but did quite well eventually. Denies dizziness, chest pain, and headache throughout. Indicates that Mandy will provided the support he needs at home. Hopeful to do his fall hunting this year. Objective: General Observation: PRO wraps to R knee. Cryocuff to R knee. Mental Status: Alert and oriented x 4 Pain: 2-3/10 in the medial part of the knee ROM: Right Lower Extremity: Hip flexion WFL. Hip abduction WFL. Knee flexion 20-95 degrees. Knee extension -20 degrees. Ankle dorsiflexion WFL. Ankle plantarflexion WFL. Left Lower Extremity: Hip flexion WFL. Hip abduction WFL. Knee flexion WFL. Ankle dorsiflexion WFL. Ankle plantarflexion WFL. STRENGTH: Right Lower Extremity: Hip flexors 5/5. Hip abductors 5/5. Knee flexors 3-/5. Knee extensors 3-/5. Ankle dorsiflexors 5/5. Ankle plantarflexors 5/5. Left Lower Extremity: Hip flexors 5/5. Hip abductors 5/5. Knee flexors 5/5. Knee extensors 5/5. Ankle dorsiflexors 5/5. Ankle plantarflexors 5/5. Sensation: Intact as to pain and light pressure in bilateral lower extremities Bed Mobility/Transfers: Supine to sit stand by assist Sit to stand stand by assist Stand to sit stand by assist Bed to chair stand by assist Gait: 150 feet using the FWW with step through gait pattern with stand by assist only. Reported 2-3/10 pain mostly in the medial aspect of R knee. Stairs: Up and down 6 x 4 steps while holding onto 1 rail and a single point cane with one hand, step-to gait pattern. Patient states that Mandy will be able to support him on one side while he uses a SPC on the other side at home. Balance: Static Sitting: Normal Dynamic Sitting: Normal Static Standing: Fair Dynamic Standing: Fair Special Tests: Mobility Limitations Standardized Measure [facility] AM-PAC 6 clicks Basic Mobility Inpatient Short Form: Raw Score: 22 CMS Score: 21% deficit Informed Consent/Education: Patient instructed in purpose of PT consult. P acket containing TKA exercise protocol has been given to patient. Education and training on initial set of exercises that can be done at home have been completed with patient. Assessment: Requires the use of a FWW to maximize independence and reduce fall risk at home. Significant other will provide all needed support. Patient presents with clinical signs and symptoms consistent with current/adm itting diagnoses that have resulted to mobility limitations, gait instability, generalized weakness, and impairment of motor control as demonstrated by the following impairment level findings: 1. Decreased strength to right knee major muscle groups 2. Impaired standing balance 3. Limitation of joint range of motion in right knee Impairments are contributing to the following functional limitations: 1. Inability to safely ambulate without assistive device 2. Increase completion time for mobility ADL performance 3. Increased fall risk Patient is assessed as a 48155 moderate complexity based on the following: History: 74-year-old male with impairment level findings, functional limitations, and past medical history as indicated above Examination: Demonstrable impairment in strength, balance, and mobility level with underlying impairments and functional limitations as documented above Presentation: Evolving Decision Makin moderate complexity Goals: N/A. PT evaluation and 1-2 treatment sessions only for functional mobility training using recommended AD and for HEP instruction. Plan of Care/Treatment Plan: N/A. PT evaluation and 1-2 treatment session only for functional mobility training using recommended AD and for HEP instruction. DISCHARGE RECOMMENDATIONS: Home when medically cleared by orthopedic surgeon. May benefit from OP services to facilitate return to community ambulation. TREATMENT CODE/TIME: 12723 x 25 minutes, 92384 x 29 minutes beginning at 13:40 PM. Thank you for the opportunity to participate in the care of this patient. Indiana Rodriguez PT, DPT, CLT [facility] [place], [place]
== END 2020-11-29 15:20 | disposition home or self-care (01) ==
PROVIDERS: PCP Internal Medicine; Visit Provider Student in an Organized Health Care Education/Training Program
PROC: (CPT 27447; principal; 2020-11-29 09:45)
DX: M17.11 Unilateral primary osteoarthritis, right knee (principal); I10 Essential (primary) hypertension; E78.5 Hyperlipidemia, unspecified
CPT/HCPCS: 27447; C1776; 97162; 97530; J0690; J1100; J1885; J2001; J2370; J2405; J2704

== ENCOUNTER → 2020-11-30 11:19 | Outpatient (BNVA) | payer MEDICARE, BC, SELFPAY | PROVIDERS: PCP Internal Medicine; Referring Provider Internal Medicine; Visit Provider Student in an Organized Health Care Education/Training Program | DX: Z47.1 Aftercare following joint replacement surgery (principal); Z96.651 Presence of right artificial knee joint ==

== ENCOUNTER → 2020-12-01 11:57 | Outpatient (BNVA) | payer MEDICARE, BC, SELFPAY | PROVIDERS: PCP Internal Medicine; Referring Provider Internal Medicine | DX: Z47.1 Aftercare following joint replacement surgery (principal); Z96.651 Presence of right artificial knee joint ==

== ENCOUNTER 2020-12-11 13:39 | Outpatient (CLI) | payer MEDICARE, BC, SELFPAY ==
--- NOTE | 2020-12-11 13:15 | DI.RAD_ITS ---
Exam(s) XR STANDING ALIGNMENT XR KNEE RT 1V EXAM: XR STANDING ALIGNMENT and XR knee RT 1 V CLINICAL HISTORY: R TKA. TECHNIQUE: 2D digital imaging was performed. COMPARISON: CR XR STANDING ALIGNMENT from 11/20/2020 FINDINGS: The hips are well maintained. Portions of the pelvis are obscured by the patient's clothing. The pa tient has a right total knee replacement. The orthopedic hardware is in good position. No lucencies are seen in or about the orthopedic hardware to suggest loosening or infection. The bones are intac t. The left knee shows mild degenerative changes with narrowing of the medial femoral tibial joint a nd periarticular spurring in the lateral femoral tibial joint. The ankles are well maintained. The right lower extremity measures 86.2 cm. The left lower extremity measures 88.4 cm. The soft tissues are unremarkable. IMPRESSION: Right TKR. DATA REPOSITORY: RADIATION DOSE DELIVERED:
== END 2020-12-11 13:40 | disposition home or self-care (01) ==
LOC: DIORS 13:40
PROVIDERS: PCP Internal Medicine; Referring Provider Internal Medicine; Visit Provider Physician Assistant
DX: Z96.651 Presence of right artificial knee joint (principal); Z47.1 Aftercare following joint replacement surgery
CPT/HCPCS: 73560; 77073

== ENCOUNTER → 2021-01-08 13:31 | Outpatient (BNVA) | payer MEDICARE, BC, SELFPAY | PROVIDERS: PCP Internal Medicine; Referring Provider Internal Medicine | DX: Z47.1 Aftercare following joint replacement surgery (principal); Z96.651 Presence of right artificial knee joint; G89.18 Other acute postprocedural pain ==

== ENCOUNTER → 2021-01-22 13:29 | Outpatient (BNVA) | payer MEDICARE, BC, SELFPAY | PROVIDERS: PCP Internal Medicine; Referring Provider Internal Medicine | DX: Z47.1 Aftercare following joint replacement surgery (principal); Z96.651 Presence of right artificial knee joint ==

== ENCOUNTER 2021-08-13 18:27 | Outpatient (REF) | payer MEDICARE, BC, SELFPAY ==
[2021-08-13 14:22] LABS: Abs Immature Grans 0.01 10^3/uL (0.0-0.06); Absolute Basophil Count 0.08 10^3/uL (0.0-0.2); Absolute Lymphocyte Count 2.29 10^3/uL (1.2-3.4); Absolute Monocyte Count 0.52 10^3/uL (0.1-0.8); Absolute Neutrophil Count 2.19 10^3/uL (1.2-6.7); Basophils % 1.5; Eosinophils % 3.8; HCT 43.2 % (40.0-50.0); HGB 14.3 g/dL (13.5-17.5); Immature Grans % 0.2; Lymphocytes % 43.3; MCH 34.4 pg (27.0-33.0); MCHC 33.1 % (32.0-36.0); MCV 104 fL (80-95); MPV 10.4 fL (8.0-11.0); Monocytes % 9.8; Neutrophils % 41.4; Platelet Count 204 10^3/uL (130-400); RBC 4.16 10^6/uL (4.36-5.78); RDW 13.2 % (11.8-14.1); RDW-SD 51.3 fL; WBC 5.29 10^3/uL (4.4-10.8)
[2021-08-13 14:42] LABS: ALT 22 U/L (16-63); AST 22 U/L (15-37); Albumin 3.6 g/dL (3.4-5.0); Alkaline Phosphatase 68 U/L (46-116); Anion Gap 9.1 mmol/L (3-11); BUN 21 mg/dL (7-18); Bilirubin, Total 0.9 mg/dL (0.2-1.0); CO2 26.9 mmol/L (21.0-32.0); CREATININE 1.1 mg/dL (0.70-1.30); Calcium 8.5 mg/dL (8.5-10.1); Calculated LDL 148 mg/dL (<100); Chloride 104 mmol/L (98-107); Cholesterol 205 mg/dL (<200); Glucose 91 mg/dL (74-106); HDL Cholesterol 36 mg/dL (40-60); Potassium 4.5 mmol/L (3.5-5.1); Sodium 140 mmol/L (136-145); Total Protein 6.8 g/dL (6.4-8.2); Triglyceride 109 mg/dL (<150)
== END 2021-08-13 18:28 | disposition home or self-care (01) ==
LOC: NCHCN 18:27
PROVIDERS: PCP Internal Medicine; Visit Provider Family Medicine
DX: I10 Essential (primary) hypertension (principal); E78.5 Hyperlipidemia, unspecified; F10.10 Alcohol abuse, uncomplicated
CPT/HCPCS: 80053; 80061; 85025

== ENCOUNTER 2021-12-13 10:55 | Outpatient (CLI) | payer MEDICARE, BC, SELFPAY ==
--- NOTE | 2021-12-13 10:30 | DI.RAD_ITS ---
Exam(s) XR KNEE RT 2V AP,LAT EXAM: XR KNEE RT 2V AP,LAT CLINICAL HISTORY: ANNUAL F/U R TKA. TECHNIQUE: 2D digital imaging was performed. COMPARISON: No exams were available for comparison FINDINGS: Two views Stable appearance of the components of the prosthesis. No fracture or loosening evident. IMPRESSION: DATA REPOSITORY: RADIATION DOSE DELIVERED:
== END 2021-12-13 10:56 | disposition home or self-care (01) ==
LOC: DIORS 10:56
PROVIDERS: PCP Internal Medicine; Referring Provider Internal Medicine; Visit Provider Student in an Organized Health Care Education/Training Program
DX: Z96.651 Presence of right artificial knee joint (principal)
CPT/HCPCS: 99213; 73560

== ENCOUNTER 2022-07-25 01:04 | Outpatient (CLI) | payer MEDICARE, BC, SELFPAY ==
--- NOTE | 2022-07-25 10:30 | DI.US_ITS ---
APPROVED REPORT EXAM: Comprehensive 2D, Doppler, and color-flow Echocardiogram Patient Location: Out-Patient Ramp Flight Attendant: Eddie Bailey RDMS, RVT Indications: aortic root dilatation Other Information Study Quality: Adequate Conclusion The left ventricular wall thickness and chamber size. Estimated ejection fraction is 55 to 60%. The re are no segmental wall motion abnormalities Right ventricle appears grossly normal in size and systolic function The left atrium is mildly dilated. Right atrial size is normal Aortic valve is trileaflet without stenosis or regurgitation Normal mitral valve with trace regurgitation Normal tricuspid valve trace regurgitation Aortic root is dilated measuring 4.01 cm. The ascending aorta is dilated measuring 3.87 cm Wall motion Left Ventricle The left ventricle is normal size. The left ventricular systolic function is normal. The left ventric ular ejection fraction is within the normal range. There is normal left ventricular wall thickness. T here is normal LV segmental wall motion. There is no ventricular septal defect visualized. LVEF is 55 -60%. Right Ventricle Right ventricle is grossly normal in size. Right ventricular systolic function is grossly normal. Atria Left atrium is mildly dilated. The right atrium size is normal. The interatrial septum is intact with no evidence for an atrial septal defect. Aortic Valve The aortic valve is normal in structure. Aortic valve is trileaflet. There is no aortic valvular sten osis. No aortic regurgitation is present. Mitral Valve The mitral valve is normal in structure. No evidence of mitral valve stenosis. Trace mitral regurgita tion. Tricuspid Valve The tricuspid valve is normal in structure. There is no tricuspid valve stenosis. Trace tricuspid reg urgitation. Unable to assess PA pressure. Pulmonic Valve The pulmonary valve is normal in structure. There is no pulmonic valvular stenosis. Trace pulmonic re gurgitation. Great Vessels Aortic root is moderately dilated. The ascending aorta is mildly dilated. Aortic arch is normal in ca liber. IVC is normal in size and collapses >50% with inspiration. Pericardium There is no pericardial effusion. 2D Dimensions IVSD d PLAX 0.83 cm M: 0.6-1.2 LV Vol A2C d MOD 153.2 mL LVPW d PLAX 0.85 cm M: 0.6 - 1.2 LV Vol A4C d MOD 151.6 mL LVID d PLAX 5.18 cm M: 4.2 - 5.8 LA vol/ BSA A4C s A-L 24.0 mL/m2 LVDs 3.20 cm M: 2.5 - 4.0 LA Area A4C s MOD 19.31 cm2 Ao Root d 4.01 cm M: 3.1 - 3.7 LV EF A4C MOD 55.3 % Ao Asc Diam d 3.87 cm M: 2.6 - 3.4 LV EF A2C MOD 57.1 % LV EF Teichholz 66.9 % LV EF Biplane MOD 58.7 % LVEF (Pat's) 58.65 % M: 52 - 72 SV 95.11 mL LV Volume 118.47 mL M: 62 - 150 SV Index 43.85 mL/m2 LV Volume Index 54.59 mL/m2 M: 34 - 74 LV Vol Biplane MOD 162.2 mL FS 37.30 % M-Mode TAPSE 1.90 cm (M/F) >1.7 LV Diastology E/A Ratio 0.8 MV E Vmax 0.66 (0.4-1.3 m/s) MV A Vmax 0.85 (0.4-1.3 m/s) MV E/A Ratio 0.78 Aortic Valve LVOT Area 5.04 cm2 AoV Area Vmax 3.64 cm2 LVOT Vmax 0.83 m/s AoV Area/ BSA (Vmax) 1.68 cm2/m2 LVOT Mean Donato. 0.58 m/s BENITO Mean Donato. 3.08 cm2 LVOT Peak Grad 2.7 mmHg BENITO Mean Donato. Index 1.42 cm2/m2 LVOT Mean Grad 1.5 mmHg LVOT VTI 0.205 m LVOT Diam s 2.50 cm AoV Vmax 1.14 m/s Velocity Ratio 0.73 AoV Mean Donato. 0.95 m/s AoV Peak Grad 5.2 mmHg LVOT SV 103.41 mL AoV Mean Grad 3.7 mmHg AoV VTI 0.249 m AoV Area VTI 4.16 cm2 AoV Area/ BSA (VTI) 1.92 cm/m2 Mitral Valve MV DT 185 (160-240 msec) MV PHT 54 msec MV Area PHT 4.10 cm2 MV VTI 0.274 m MV Area VTI 3.78 (4.0-6.0 cm2) Pulmonary Valve PV Vmax 0.91 (0.5-1.5 m/s) RVOT Peak Gr. 1.65 mmHg PV Peak Grad 3.3 mmHg RVOT Mean Gr. 0.95 mmHg PV Mean Grad 2.2 mmHg RVOT VTI 0.150 m PV VTI 0.188 m RVOT Vmax 0.64 m/s Tricuspid Valve RA Pressure 3.00 mmHg
== END 2022-07-25 01:24 ==
LOC: DI 01:04
PROVIDERS: PCP Internal Medicine; Visit Provider Family Medicine
DX: I77.810 Thoracic aortic ectasia (principal)
CPT/HCPCS: 93306

== ENCOUNTER 2022-09-04 13:17 | Outpatient (REF) | payer MEDICARE, BC, SELFPAY ==
[2022-09-04 16:25] LABS: Abs Immature Grans 0.01 10^3/uL (0.0-0.06); Absolute Basophil Count 0.05 10^3/uL (0.0-0.2); Absolute Eosinophil Count 0.22 10^3/uL (0.0-0.7); Absolute Lymphocyte Count 2.16 10^3/uL (1.2-3.4); Absolute Monocyte Count 0.56 10^3/uL (0.1-0.8); Absolute Neutrophil Count 3.33 10^3/uL (1.2-6.7); Basophils % 0.8; Eosinophils % 3.5; HCT 40.7 % (40.0-50.0); HGB 13.3 g/dL (13.5-17.5); Immature Grans % 0.2; Lymphocytes % 34.1; MCH 31.8 pg (27.0-33.0); MCHC 32.7 % (32.0-36.0); MCV 97 fL (80-95); MPV 10.2 fL (8.0-11.0); Monocytes % 8.8; Neutrophils % 52.6; Platelet Count 214 10^3/uL (130-400); RBC 4.18 10^6/uL (4.36-5.78); RDW 15.8 % (11.8-14.1); RDW-SD 56.4 fL; WBC 6.33 10^3/uL (4.4-10.8)
[2022-09-04 17:19] LABS: ALT 17 U/L (16-63); AST 12 U/L (15-37); Albumin 3.5 g/dL (3.4-5.0); Alkaline Phosphatase 72 U/L (46-116); Anion Gap 9.5 mmol/L (3-11); BUN 15 mg/dL (7-18); Bilirubin, Total 0.6 mg/dL (0.2-1.0); CO2 24.5 mmol/L (21.0-32.0); Calcium 9.1 mg/dL (8.5-10.1); Chloride 103 mmol/L (98-107); Estimated GFR 78.98 (mL/min/1.73m2); Glucose 101 mg/dL (74-106); Magnesium 1.3 mg/dL (1.8-2.4); Potassium 4.3 mmol/L (3.5-5.1); Sodium 137 mmol/L (136-145); Total Protein 7.3 g/dL (6.4-8.2); Vitamin B12 246 pg/mL (193-986)
[2022-09-05 19:43] LABS: PSA, Screening 0.4 ng/mL (<=6.5)
== END 2022-09-04 13:18 | disposition home or self-care (01) ==
LOC: NCHCN 13:17
PROVIDERS: PCP Internal Medicine; Visit Provider Family Medicine
DX: E83.42 Hypomagnesemia (principal); I10 Essential (primary) hypertension; K21.9 Gastro-esophageal reflux disease without esophagitis; F10.10 Alcohol abuse, uncomplicated; N40.1 Benign prostatic hyperplasia with lower urinary tract symptoms; Z12.5 Encounter for screening for malignant neoplasm of prostate; R20.2 Paresthesia of skin
CPT/HCPCS: 80053; 84153; 82607; 83735; 85025